=== PATIENT | male | born 1980 | race Caucasian/White ===

== ENCOUNTER 2021-10-16 05:30 | Emergency (ER) | payer MEDICAID, SELFPAY ==
--- NOTE | ~2021-10-16 | CT_ITS ---
EXAMINATION: CT ABDOMEN AND PELVIS WITH CONTRAST CLINICAL INFORMATION: Epigastric pain. History of his be of COMPARISON: CT abdomen pelvis 02/01/2020 TECHNIQUE: Multidetector volumetric images were obtained from the superior aspect of the liver through the pubic symphysis following administration 85 mL of Omnipaque 350 intravenous contrast. Sagittal and coronal reformatted images were obtained on the technologist's workstation. Oral contrast: No This CT examination was performed using dose optimization techniques as appropriate, variously including the following: *Automated exposure control *Adjustment of mA and/or kV according to patient size (this includes techniques or standardized protocols for targeted exams where dose is matched to indication/reason for exam; i.e. extremities or head) *Use of iterative reconstruction technique DLP: 770 mGy-cm FINDINGS: LUNG BASES: The visualized lung bases are unremarkable. LIVER, GALLBLADDER, AND BILIARY TREE: The liver is normal in size, shape, and attenuation. No focal hepatic lesion or biliary ductal dilatation is present. The gallbladder is unremarkable with no evidence of radiopaque gallstones, gallbladder wall thickening, or obvious pericholecystic inflammatory changes. PANCREAS: Unremarkable. SPLEEN: Unremarkable. ADRENAL GLANDS: Unremarkable. KIDNEYS AND URETERS: There is a horseshoe kidney joint and the inferior poles. There is no radiopaque renal calculi seen. There are left renal caliectasis and extrarenal pelvis.. The ureters are normal caliber. BLADDER: Unremarkable. GASTROINTESTINAL TRACT: There is scattered stool and gas seen in colon without distention. The small bowel loops are normal caliber. Appendix is not visualized. There is no free air or fluid levels. ABDOMINAL WALL: No significant hernia is appreciated. LYMPH NODES: Normal. VASCULAR: Unremarkable. PELVIC VISCERA: The prostate gland is normal size. The central gland calcification. No free air. No abnormal pelvic lymph nodes. Prominent inguinal canal containing fat is noted. OSSEOUS STRUCTURES: Unremarkable. CT/CT abdomen pelvis w con IMPRESSION: No acute intra-abdominal process. Mild constipation. 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 Fleischner guidelines were followed.
[2021-10-16 05:47] VITALS: BP 142/90; PULSE 76; RESP 20; TEMP 36.6; O2SAT 100; BMI 34.4
[2021-10-16 06:01] LABS: Basophils Percent Auto 0.2 % (0-2); Eosinophils Absolute Auto 0.1 X10*3/uL (0.0-0.4); Hematocrit 43.3 % (42.0-52.0); Hemoglobin 14.3 g/dl (14.0-18.0); Imm Gran Abs Auto 0.01 X10*3/uL (0.00-0.03); Imm Gran Pct Auto 0.2 % (0.0-0.4); Lymphocytes Absolute Auto 1.7 X10*3/uL (1.2-4.9); Lymphocytes Percent Auto 39.1 % (20-40); MANUAL DIFF FLAG NO; Mean Corpuscular Hemoglobin 30.4 pg (27.0-33.0); Mean Corpuscular Volume 91.9 fL (80.0-98.0); Mean Platelet Volume 8.7 fL (9.4-12.4); Monocytes Absolute Auto 0.5 X10*3/uL (0.1-1.2); Monocytes Percent Auto 10.2 % (2-11); Neutrophils Absolute Auto 2.1 x10*3/uL (2.0-8.3); Neutrophils Percent Auto 48.3 % (45-73); Platelet Count 270 X10*3/uL (160-400); Red Blood Count 4.71 X10*6/uL (4.60-5.80); Red Cell Distribution Width 12.6 % (11.0-16.0); White Blood Count 4.4 X10*3/uL (4.8-10.8)
[2021-10-16 06:14] LABS: COVID-19 Test Negative (Negative)
[2021-10-16 06:15] LABS: Alanine Aminotransferase 66 U/L (0-40); Albumin Level 4.2 g/dL (3.5-5.0); Alkaline Phosphatase 68 U/L (39-117); Anion Gap 12 (12-20); Aspartate Amino Transferase 40 U/L (5-37); Bilirubin Total 0.7 mg/dL (0.0-1.0); Blood Urea Nitrogen 14 mg/dL (9-16); Calcium 9.3 mg/dL (8.4-10.2); Carbon Dioxide 30 mmol/L (22-29); Chloride 103 mmol/L (96-108); Creatinine Clr Calc Pharmacy 108.3; Estimated Glomerular Filt Rate > 60; Glucose Random 106 mg/dL (60-115); Lipase 17 U/L (8-78); Potassium 4.2 mmol/L (3.3-5.1); Sodium 141 mmol/L (135-145); Total Protein 7.4 g/dL (6.5-8.0)
[2021-10-16 06:33] LABS: Appearance Urine CLEAR; Color Urine YELLOW; Glucose Urine UA NEG (NEG); Leukocyte Esterase Urine NEG (NEG); Nitrite Urine NEG (NEG); PH 5.5 (5.0-8.0); Specific Gravity - Urine >= 1.030 (1.005-1.025); Urine Blood NEG (NEG); Urine Ketones NEG (NEG); Urine Protein NEG (NEG-TRACE)
--- NOTE | 2021-10-16 09:39 | ED_ITS ---
HPI - Abdominal Pain General Chief Complaint: Abdominal Pain Stated Complaint: stomach pain, nausea Time Seen by Provider: 10/16/21 09:39 Source: patient Mode of arrival: ambulatory Limitations: no limitations History of Present Illness HPI narrative: 41-year-old male presents for epigastric pain that started at 03:30 this morning. The pain was severe when he woke up, he was nauseous. Patient had a bowel movement, and then had tenesmus with 4 more bowel movements early this morning. No dark tarry or bloody stool. His pain was worsening, he took ibuprofen and Pepto-Bismol at home, and now his pain is better. Pain now is 4/10. States the pain comes in waves. Not nauseous now, no vomiting. No fevers. No radiation of pain. Patient is on Suboxone and has a history of alcoholism. States he recently st arted drinking again, drinks 3-4 nips a day. Patient was offered assistant boys track coach, but refused, will follow up with primary care provider for his drinking. Patient has a history of small-bowel obstructions, states he has had 2 small bowel obstructions. History of abdominal surgery as a child. States his mom is usually drunk, cannot give him information of what abdominal surgeries he has had. States he was hospitalized here a few years ago where he was managed medically for small bowel obstruction. MD elicited complaint: abdominal pain Pertinent past history: other (SBO) Onset (ago): hour(s) Pain Consistency: intermittent Location: epigastric Severity: moderate Pain scale (0-10): 4 Quality: stabbing Radiation: none Migration to: no migration Exacerbating factors: nothing Relieving factors: nothing Context: history of similar episodes Associated symptoms: nausea Treatments prior to arrival: NSAIDs and other (pepto bismol) Related Data Previous Rx's Medication Instructions Recorded polyethylene glycol 3350 17 17 g PO DAILY 3 Days #51 g 10/16/21 gram/dose oral powder (Miralax) Allergies Allergy/AdvReac Type Severity Reaction Status Date / Time No Known Allergies Allergy Verified 10/16/21 05:43 Review of Systems Constitutional: Denies body ache(s), Denies chills, Denies fatigue, Denies fever(s), Denies headache(s), Denies malaise and Denies weakness Eyes: Denies diplopia Denies vertigo, Denies dizziness, Denies otalgia, Denies headache(s), Denies mouth pain, Denies post nasal drip, Denies sinus pain, Denies sinus pressure, Denies sore throat and Denies throat swelling Cardiovascular: Denies chest pain, Denies syncope, Denies leg edema, Denies lightheadedness, Denies Loss of Consciousness, Denies palpitations and Denies dyspnea Respiratory: Denies chest congestion, Denies cough and Denies dyspnea Gastrointestinal: Reports abdominal pain, Denies melena, Denies hematochezia, Reports tenesmus, Denies coffee ground emesis, Denies constipation, Denies diar pepper, Reports nausea, Denies vomiting and Denies hematemesis Musculoskeletal: Reports no additional musculoskeletal complaints Denies confusion, Denies vertigo, Denies dizziness, Denies syncope, Denies headache(s) and Denies weakness Psychiatric: Denies anxiety, Denies confusion and Denies depression Endocrine: Denies fatigue and Denies palpitations Allergic/Immunologic: Denies throat swelling [facility] Past Medical History [facility] Narrative: alcoholism On Suboxone Medical History (Updated 10/16/21 @ 11:52 by MINDY Lipscomb) Small bowel obstruction Social History Social History Advance Directives: No Advance Directives Information Provided: No Physical Exam ED Vital Signs: Vital Signs - 24 hr 10/16/21 05:47 Temperature 97.9 F Pulse Rate 76 Respiratory Rate 20 Blood Pressure 142/90 H Pulse Oximetry 100 BMI result Body Mass Index 34.4 Const General: healthy appearing, no acute distress, well developed, alert and awake; No confusion Nutritional Appearance: well nourished Orientation/consciousness: patient oriented x3 and No confusion Limitations: no limitations [facility] Head: Yes normal to inspection, Yes No palpable skull fracture present, Yes normocephalic and Yes atraumatic Ears: hearing grossly normal bilaterally General nose exam: Normal external nose present Face and sinus: Yes normal facial exam Mouth: Normal oral and palatal mucosa present Throat: Yes posterior oropharynx normal Eyes Sclerae: sclerae normal Pupils: Equal, round and reactive pupils present EOM: EOMs intact bilaterally Neck Neck: Yes normal visual inspection, Yes full ROM, Yes no lymphadenopathy, Yes no meningeal signs and Yes trachea midline Resp Effort & Inspection: normal respiratory effort and able to speak in complete sentences Auscultation: clear to auscultation bilaterally, no crackles, no rales, no rhonchi and no wheezes Cardio Rate: regular rate Rhythm: regular rhythm Heart sounds: S1 normal heart sound present and S2 normal heart sound present GI Inspection: Yes scar Palpation (GI): Soft to palpation, Tenderness to palpation present (GI) in the epigastrum, Guarding due to palpation present (GI) in the RUQ and other (epigastric) and not rigid Percussion: Yes normal to percussion Auscultation: Hypoactive bowel sounds present Rectal Exam - Male: Yes deferred General: Yes no CVA tenderness Back/Spine/Pelvis Back: no CVA tenderness Skin General skin exam: scars (midline scar abd, G tube scar) Neuro General: patient oriented x3, no meningeal signs, no focal motor deficits and No confusion Cranial nerves: Yes Equal, round and reactive pupils present Extrem General: Yes normal to inspection, Yes full ROM and Yes capillary refill normal Psych Appearance: grossly normal Mental Status: mental status grossly normal Speech and movement: Normal speech and movement present Affect: normal affect Attitude: cooperative Course Course Course Narrative: 41-year-old male with a history of small-bowel obstruction presents with severe epigastric pain early this morning. Patient's pain is better now. On exam, patient has no CVA tenderness, is tender and guarding over epigastrium. Diminished bowel sounds Labs are remarkable for elevated LFTs, patient states he has recently started drinking again. Bilirubin is normal. White blood cell count 4.4. Lipase is negative. Discussed patient's drinking, offered assistant boys track coach, patient refused. Will get CT abdomen to evaluate for SBO. Reevaluation(s) Reevaluation #1: CT/CT abdomen pelvis w con IMPRESSION: No acute intra-abdominal process. Mild constipation. 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 CT shows no small bowel obstruction, Will treat for constipation, counseled patient to increase water and fiber intake, prescribed MiraLax for 2 days, follow-up with primary care provider. MDM - Abdominal Pain Lab Data Result diagrams: 10/16/21 05:51 10/16/21 05:51 Labs: Lab Results 10/16/21 10/16/21 10/16/21 Range/Units 05:51 05:51 05:55 WBC 4.4 L (4.8-10.8) X10*3/uL RBC 4.71 (4.60-5.80) X10*6/uL Hgb 14.3 (14.0-18.0) g/dl Hct 43.3 (42.0-52.0) % MCV 91.9 (80.0-98.0) fL MCH 30.4 (27.0-33.0) pg MCHC 33.0 (31.0-36.0) g/dl RDW 12.6 (11.0-16.0) % Plt Count 270 (160-400) X10*3/uL MPV 8.7 L (9.4-12.4) fL Immature Gran % (Auto) 0.2 (0.0-0.4) % Neut % (Auto) 48.3 (45-73) % Lymph % (Auto) 39.1 (20-40) % [place] % (Auto) 10.2 (2-11) % Eos % (Auto) 2.0 (0-4) % Baso % (Auto) 0.2 (0-2) % Lymph # (Auto) 1.7 (1.2-4.9) X10*3/uL [place] # (Auto) 0.5 (0.1-1.2) X10*3/uL Eos # (Auto) 0.1 (0.0-0.4) X10*3/uL Baso # (Auto) 0.0 (0.0-0.2) X10*3/uL Abs Immat Gran (auto) 0.01 (0.00-0.03) X10*3/uL Absolute Neuts (auto) 2.1 (2.0-8.3) x10*3/uL Absolute Nucleated RBC 0.000 (0.0-0.012) X10*3/uL Nucleated RBC % (auto) 0.0 (0.0-0.2) /100WBC Sodium 141 (135-145) mmol/L Potassium 4.2 (3.3-5.1) mmol/L Chloride 103 (96-108) mmol/L Carbon Dioxide 30 H (22-29) mmol/L Anion Gap 12 (12-20) BUN 14 (9-16) mg/dL Creatinine 1.01 (0.5-1.4) mg/dL Estim Creat Clear Calc 108.3 Estimated GFR > 60 Random Glucose 106 (60-115) mg/dL Calcium 9.3 (8.4-10.2) mg/dL Total Bilirubin 0.7 (0.0-1.0) mg/dL AST 40 H (5-37) U/L ALT 66 H (0-40) U/L Alkaline Phosphatase 68 (39-117) U/L Total Protein 7.4 (6.5-8.0) g/dL Albumin 4.2 (3.5-5.0) g/dL Lipase 17 (8-78) U/L Urine Color Urine Appearance Urine pH (5.0-8.0) Ur Specific [place] (1.005-1.025) Urine Protein (NEG-TRACE) MG/DL Urine Glucose (UA) (NEG) MG/DL Urine Ketones (NEG) MG/DL Urine Blood (NEG) Urine Nitrite (NEG) Ur Leukocyte Esterase (NEG) COVID-19 (FIDEL) Negative (Negative) COVID-19 Clin Com See Note 10/16/21 Range/Units 06:23 WBC (4.8-10.8) X10*3/uL RBC (4.60-5.80) X10*6/uL Hgb (14.0-18.0) g/dl Hct (42.0-52.0) % MCV (80.0-98.0) fL MCH (27.0-33.0) pg MCHC (31.0-36.0) g/dl RDW (11.0-16.0) % Plt Count (160-400) X10*3/uL MPV (9.4-12.4) fL Immature Gran % (Auto) (0.0-0.4) % Neut % (Auto) (45-73) % Lymph % (Auto) (20-40) % [place] % (Auto) (2-11) % Eos % (Auto) (0-4) % Baso % (Auto) (0-2) % Lymph # (Auto) (1.2-4.9) X10*3/uL [place] # (Auto) (0.1-1.2) X10*3/uL Eos # (Auto) (0.0-0.4) X10*3/uL Baso # (Auto) (0.0-0.2) X10*3/uL Abs Immat Gran (auto) (0.00-0.03) X10*3/uL Absolute Neuts (auto) (2.0-8.3) x10*3/uL Absolute Nucleated RBC (0.0-0.012) X10*3/uL Nucleated RBC % (auto) (0.0-0.2) /100WBC Sodium (135-145) mmol/L Potassium (3.3-5.1) mmol/L Chloride (96-108) mmol/L Carbon Dioxide (22-29) mmol/L Anion Gap (12-20) BUN (9-16) mg/dL Creatinine (0.5-1.4) mg/dL Estim Creat Clear Calc Estimated GFR Random Glucose (60-115) mg/dL Calcium (8.4-10.2) mg/dL Total Bilirubin (0.0-1.0) mg/dL AST (5-37) U/L ALT (0-40) U/L Alkaline Phosphatase (39-117) U/L Total Protein (6.5-8.0) g/dL Albumin (3.5-5.0) g/dL Lipase (8-78) U/L Urine Color YELLOW Urine Appearance CLEAR Urine pH 5.5 (5.0-8.0) Ur Specific [place] >= 1.030 H (1.005-1.025) Urine Protein NEG (NEG-TRACE) MG/DL Urine Glucose (UA) NEG (NEG) MG/DL Urine Ketones NEG (NEG) MG/DL Urine Blood NEG (NEG) Urine Nitrite NEG (NEG) Ur Leukocyte Esterase NEG (NEG) COVID-19 (FIDEL) (Negative) COVID-19 Clin Com Discharge Plan Discharge Clinical Impression: Constipation Patient Disposition: Home, Self-Care Instructions: Constipation (ED), High Fiber Diet (ED) Additional Instructions: You have no bowel obstruction today Take MiraLax once a day for 3 days. Drink 2-3 L of water a day, reduce your coffee intake. Eat plenty of fruits and vegetables as these help reduce constipation. Please call your primary care provider for follow-up appointment. We discussed that your liver enzymes are mildly elevated. Please discuss this as well as your wish to stop drinking alcohol with your primary care provider. Please return to the emergency room if you have worsening severe abdominal pain, fever, nausea vomiting, or any other new or concerning symptoms. We want to make sure you do not have a bowel obstruction in the future as well. Prescriptions: New polyethylene glycol 3350 [Miralax] 17 gram/dose powder 17 g PO DAILY 3 Days Qty: 51 0RF Stand Alone Forms: Work/School Release
[2021-10-16] MEDS: 0.9 % Sodium Chloride 1,000 ML 999 ML IV (10:09)
[2021-10-16] MEDS: iohexoL 350 MG/ML 100 ML INFUS..BTL 85 ML IV (10:23)
[2021-10-16 12:00] VITALS: BP 133/90; PULSE 61; RESP 18; TEMP 36.9; O2SAT 100
== END 2021-10-16 12:05 | disposition home or self-care (01) ==
PROVIDERS: Emergency Provider Emergency Medicine Emergency Medical Services; PCP Internal Medicine
DX: K59.00 Constipation, unspecified (principal); Z20.822 Contact with and (suspected) exposure to COVID-19; R10.13 Epigastric pain
CPT/HCPCS: 36415; 74177; 80053; 81003; 83690; 85025; 87635; 96360; 99284; Q9967

== ENCOUNTER 2021-11-16 17:24 | Emergency (ER) | payer MEDICAID, SELFPAY ==
--- NOTE | ~2021-11-16 | XR_ITS ---
EXAMINATION: XR CHEST CLINICAL INFORMATION: Chest pain COMPARISON: None TECHNIQUE: Frontal view of the chest was obtained. 5:36 PM FINDINGS: No significant abnormality is noted involving the heart, lungs, mediastinum, bony thorax or soft tissues. XR/XR chest 1V IMPRESSION: Unremarkable examination.
--- NOTE | 2021-11-16 17:30 | ECG_ITS ---
Test Reason : DIZZINESS Blood Pressure : / mmHG Vent. Rate : 084 BPM Atrial Rate : 084 BPM P-R Int : 156 ms QRS Dur : 078 ms QT Int : 348 ms P-R-T Axes : 059 031 045 degrees QTc Int : 411 ms Normal sinus rhythm Normal ECG No previous ECGs available Referred By: Generic ED Physician Electronically Signed By:CARLOS HENDRICKS MD
[2021-11-16 17:35] VITALS: BP 148/87; PULSE 94; RESP 17; TEMP 36.6; O2SAT 98; BMI 36.3
[2021-11-16 17:58] LABS: MANUAL DIFF FLAG NO
[2021-11-16 18:16] LABS: Anion Gap 11 (12-20); Basophils Percent Auto 0.3 % (0-2); Blood Urea Nitrogen 18 mg/dL (9-16); Calcium 9.3 mg/dL (8.4-10.2); Carbon Dioxide 29 mmol/L (22-29); Chloride 105 mmol/L (96-108); Creatinine Clr Calc Pharmacy 106.9; Eosinophils Absolute Auto 0.1 X10*3/uL (0.0-0.4); Eosinophils Percent Auto 1.6 % (0-4); Estimated Glomerular Filt Rate > 60; Glucose Random 84 mg/dL (60-115); Hematocrit 41.5 % (42.0-52.0); Imm Gran Abs Auto 0.04 X10*3/uL (0.00-0.03); Imm Gran Pct Auto 0.6 % (0.0-0.4); Lymphocytes Absolute Auto 1.9 X10*3/uL (1.2-4.9); Lymphocytes Percent Auto 29.8 % (20-40); Mean Corpuscular HGB Conc 33.7 g/dl (31.0-36.0); Mean Corpuscular Hemoglobin 30.5 pg (27.0-33.0); Mean Corpuscular Volume 90.4 fL (80.0-98.0); Mean Platelet Volume 8.9 fL (9.4-12.4); Monocytes Absolute Auto 0.5 X10*3/uL (0.1-1.2); Monocytes Percent Auto 7.4 % (2-11); Neutrophils Absolute Auto 3.8 x10*3/uL (2.0-8.3); Neutrophils Percent Auto 60.3 % (45-73); Platelet Count 304 X10*3/uL (160-400); Potassium 4.5 mmol/L (3.3-5.1); Red Blood Count 4.59 X10*6/uL (4.60-5.80); Red Cell Distribution Width 12.4 % (11.0-16.0); Sodium 140 mmol/L (135-145); White Blood Count 6.3 X10*3/uL (4.8-10.8)
[2021-11-16 18:20] LABS: Troponin-I High Sensitivity < 3.5 ng/L (<3.5-35.0)
--- NOTE | 2021-11-16 18:40 | ED.GENADULT ---
HPI - General Adult General Chief complaint: Dizziness Stated complaint: HBP/Dizzy Time Seen by Provider: 11/16/21 18:40 Source: patient Mode of arrival: ambulatory Limitations: no limitations History of Present Illness HPI narrative: Patient with history of borderline hypertension today while in the bathroom felt little funny fell face is swollen got scared checked blood pressure was 200/90 so came to the ER for further management patient not taking any medication for blood pressure at this time does have a family history of hypertension no chest pain no headache no passing out no palpitation Related Data Previous Rx's Medication Instructions Recorded polyethylene glycol 3350 17 17 g PO DAILY 3 Days #51 g 10/16/21 gram/dose oral powder (Miralax) Allergies Allergy/AdvReac Type Severity Reaction Status Date / Time No Known Allergies Allergy Verified 10/16/21 05:43 Review of Systems Review of Systems: Yes all other systems are reviewed and are negative [facility] Past Medical History Medical History Small bowel obstruction Social History Social History Advance Directives: No Advance Directives Information Provided: No Physical Exam ED Vital Signs: Vital Signs - 24 hr 11/16/21 17:35 11/16/21 18:54 11/16/21 18:56 Temperature 98 F 98 F Pulse Rate 94 98 Respiratory Rate 17 16 Blood Pressure 148/87 H 128/94 H 124/96 H Pulse Oximetry 98 97 BMI result Body Mass Index 36.3 Appearance: Alert. Oriented X3. No acute distress. Eyes: PERRLA, No Nystagmus ENT: Pharynx normal. Oral Mucosa moist Neck: Normal inspection. Neck supple. CVS: Normal heart rate and rhythm. Pulses normal. Respiratory: No respiratory distress. Equal air entry bilateral, no wheezing/rales/rhonchi Abdomen: Soft and nontender. Bowel sounds are present, no mass palpable, no CVA tenderness Skin: Skin warm and dry. Normal skin color. Normal skin turgor. Extremities: No lower extremity edema. No calf tenderness Neuro: Oriented X 3. No motor deficit. No sensory deficit.No cerebellar signs , cranial nerves II-XII intact Medical Decision Making MDM Narrative Medical decision making narrative: Patient has stable labs repeat blood pressure was within normal dropped to 126/85. Patient advised to follow-up with PCP for further management patient advised to decrease weight salt restrictions and follow with PCP Lab Data Lab results reviewed: Yes I reviewed the patient's lab results. Result diagrams: 11/16/21 17:50 11/16/21 17:50 Labs: Lab Results 11/16/21 11/16/21 11/16/21 Range/Units 17:50 17:50 17:50 WBC 6.3 (4.8-10.8) X10*3/uL RBC 4.59 L (4.60-5.80) X10*6/uL Hgb 14.0 (14.0-18.0) g/dl Hct 41.5 L (42.0-52.0) % MCV 90.4 (80.0-98.0) fL MCH 30.5 (27.0-33.0) pg MCHC 33.7 (31.0-36.0) g/dl RDW 12.4 (11.0-16.0) % Plt Count 304 (160-400) X10*3/uL MPV 8.9 L (9.4-12.4) fL Immature Gran % (Auto) 0.6 H (0.0-0.4) % Neut % (Auto) 60.3 (45-73) % Lymph % (Auto) 29.8 (20-40) % [place] % (Auto) 7.4 (2-11) % Eos % (Auto) 1.6 (0-4) % Baso % (Auto) 0.3 (0-2) % Lymph # (Auto) 1.9 (1.2-4.9) X10*3/uL [place] # (Auto) 0.5 (0.1-1.2) X10*3/uL Eos # (Auto) 0.1 (0.0-0.4) X10*3/uL Baso # (Auto) 0.0 (0.0-0.2) X10*3/uL Abs Immat Gran (auto) 0.04 H (0.00-0.03) X10*3/uL Absolute Neuts (auto) 3.8 (2.0-8.3) x10*3/uL Absolute Nucleated RBC 0.000 (0.0-0.012) X10*3/uL Nucleated RBC % (auto) 0.0 (0.0-0.2) /100WBC Sodium 140 (135-145) mmol/L Potassium 4.5 (3.3-5.1) mmol/L Chloride 105 (96-108) mmol/L Carbon Dioxide 29 (22-29) mmol/L Anion Gap 11 L (12-20) BUN 18 H (9-16) mg/dL Creatinine 1.05 (0.5-1.4) mg/dL Estim Creat Clear Calc 106.9 Estimated GFR > 60 Random Glucose 84 (60-115) mg/dL Calcium 9.3 (8.4-10.2) mg/dL Troponin I High Sens < 3.5 (<3.5-35.0) ng/L Discharge Plan Discharge Clinical Impression: Hypertension Patient Disposition: Home, Self-Care Instructions: Heart Healthy Diet (ED), Hypertension (ED) Additional Instructions: You have borderline hypertension Try to work on reducing weight Decrease salt intake exercise follow with PCP Check blood pressure twice daily it should be less than 130/80 Prescriptions: No Action polyethylene glycol 3350 [Miralax] 17 gram/dose powder 17 g PO DAILY 3 Days Qty: 51 0RF Interventions: ED Discharge Assessment Last Done: 11/16/21 19:04 Discharge Date/Time: 11/16/21 19:04
[2021-11-16 18:54] VITALS: BP 128/94; PULSE 98; RESP 16; TEMP 36.6; O2SAT 97
[2021-11-16 18:56] VITALS: BP 124/96
== END 2021-11-16 19:04 | disposition home or self-care (01) ==
PROVIDERS: Emergency Provider Internal Medicine; PCP Internal Medicine
DX: R07.89 Other chest pain (principal); R42 Dizziness and giddiness; I10 Essential (primary) hypertension; Z79.899 Other long term (current) drug therapy
CPT/HCPCS: 36415; 71045; 80048; 84484; 85025; 93005; 99283

== ENCOUNTER 2021-12-03 04:53 | Emergency (ER) | payer MEDICAID, SELFPAY ==
--- NOTE | ~2021-12-03 | CT_ITS ---
EXAMINATION: CT ABDOMEN AND PELVIS WITHOUT CONTRAST CLINICAL INFORMATION: Diffuse abdominal pain COMPARISON: 10/16/2021 TECHNIQUE: Multidetector volumetric imaging was performed from the superior aspect of the liver through the pubic symphysis. Sagittal and coronal reformatted images were obtained on the technologist's workstation. This CT examination was performed using dose optimization techniques as appropriate, variously including the following: *Automated exposure control *Adjustment of mA and/or kV according to patient size (this includes techniques or standardized protocols for targeted exams where dose is matched to indication/reason for exam; i.e. extremities or head) *Use of iterative reconstruction technique DLP: 794 mGy-cm FINDINGS: LUNG BASES: The visualized lung bases are unremarkable. LIVER, GALLBLADDER, AND BILIARY TREE: The liver is normal in size, shape, and attenuation. No focal hepatic lesion or biliary ductal dilatation is present. Gallbladder unremarkable. PANCREAS: Unremarkable. SPLEEN: Unremarkable. ADRENAL GLANDS: Unremarkable. KIDNEYS AND URETERS: Horseshoe kidney. Stable chronic fullness/hydronephrosis of the left moiety. The ureters are normal in course and caliber. Multiple nonobstructive intrarenal calculi present within the left moiety, with tiny stones versus milk of calcium within dependent interpolar calyces, similar to prior. The largest grouping of tiny stones measures 10 x 3 mm in total. No urinary calculi within the right moiety. BLADDER: Unremarkable. GASTROINTESTINAL TRACT: The small and large bowel are unremarkable. The appendix is unremarkable. ABDOMINAL WALL: No significant hernia is appreciated. LYMPH NODES: Normal. VASCULAR: Unremarkable. PELVIC VISCERA: Normal sized prostate. Dystrophic calcifications present within the central gland. Seminal vesicles unremarkable. OSSEOUS STRUCTURES: Unremarkable. CT/CT abdomen pelvis wo con IMPRESSION: * No acute findings within the abdomen or pelvis. 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 * Multiple nonobstructive calculi within the left moiety appearing similar to prior. The fact that the left moiety is involved while the right is not suggests urinary stasis as a contributing factor
[2021-12-03 04:59] VITALS: BP 132/77; PULSE 76; RESP 16; O2SAT 99; BMI 35.6
[2021-12-03 05:03] VITALS: TEMP 36.8
[2021-12-03 05:15] VITALS: BP 128/72; PULSE 73; RESP 18; O2SAT 98
[2021-12-03 05:17] LABS: Basophils Percent Auto 0.2 % (0-2); Eosinophils Absolute Auto 0.1 X10*3/uL (0.0-0.4); Eosinophils Percent Auto 3.2 % (0-4); Hematocrit 42.8 % (42.0-52.0); Hemoglobin 14.4 g/dl (14.0-18.0); Imm Gran Abs Auto 0.01 X10*3/uL (0.00-0.03); Imm Gran Pct Auto 0.2 % (0.0-0.4); Lymphocytes Absolute Auto 1.9 X10*3/uL (1.2-4.9); Lymphocytes Percent Auto 41.9 % (20-40); MANUAL DIFF FLAG NO; Mean Corpuscular HGB Conc 33.6 g/dl (31.0-36.0); Mean Corpuscular Hemoglobin 30.1 pg (27.0-33.0); Mean Corpuscular Volume 89.5 fL (80.0-98.0); Mean Platelet Volume 8.7 fL (9.4-12.4); Monocytes Absolute Auto 0.4 X10*3/uL (0.1-1.2); Monocytes Percent Auto 9.5 % (2-11); Platelet Count 258 X10*3/uL (160-400); Red Blood Count 4.78 X10*6/uL (4.60-5.80); Red Cell Distribution Width 12.4 % (11.0-16.0); White Blood Count 4.4 X10*3/uL (4.8-10.8)
[2021-12-03 05:34] LABS: Alanine Aminotransferase 44 U/L (0-40); Albumin Level 4.1 g/dL (3.5-5.0); Alkaline Phosphatase 65 U/L (39-117); Anion Gap 12 (12-20); Aspartate Amino Transferase 28 U/L (5-37); Bilirubin Total 0.4 mg/dL (0.0-1.0); Blood Urea Nitrogen 10 mg/dL (9-16); Calcium 9.2 mg/dL (8.4-10.2); Carbon Dioxide 28 mmol/L (22-29); Chloride 103 mmol/L (96-108); Creatinine Clr Calc Pharmacy 109.2; Estimated Glomerular Filt Rate > 60; Glucose Random 101 mg/dL (60-115); Lipase 17 U/L (8-78); Potassium 4.1 mmol/L (3.3-5.1); Sodium 139 mmol/L (135-145); Total Protein 7.2 g/dL (6.5-8.0)
[2021-12-03 06:00] VITALS: BP 118/75; PULSE 69; RESP 16; TEMP 36.9; O2SAT 98
--- NOTE | 2021-12-03 06:54 | ED_ITS ---
HPI - Abdominal Pain General Chief Complaint: Abdominal Pain Stated Complaint: stomach pain Time Seen by Provider: 12/03/21 06:48 Source: patient Mode of arrival: ambulatory Limitations: no limitations History of Present Illness HPI narrative: 41-year-old male came in for evaluation of abdominal pain. Patient woke up from sleep with severe mid abdominal pain, describes the pain as cramps, had 3 bowel movements the 1st bowel movement with constipation then was followed by soft bowel movement, pain was associated with nausea but no vomiting, no fever, no chills, patient had recent ED visit for evaluation of abdominal pain and was diagnosed with constipation, history of abdominal surgery when he was child (patient do not know what kind of surgery). Patient had a history of small-bowel obstruction. Patient has been passing flatus, pain has improved now is about 5/10 but constant dull aching mostly in the mid abdomen. Related Data Home Medications Medication Instructions Recorded Confirmed buprenorphine 8 mg-naloxone 2 mg 2 strip SUBLINGUAL DAILY 12/03/21 12/03/21 sublingual film (Suboxone) Previous Rx's Medication Instructions Recorded polyethylene glycol 3350 17 17 g PO DAILY 3 Days #51 g 10/16/21 gram/dose oral powder (Miralax) Allergies Allergy/AdvReac Type Severity Reaction Status Date / Time No Known Allergies Allergy Verified 12/03/21 05:20 Review of Systems Review of Systems All other systems are reviewed and are negative Constitutional: Reports as per HPI and Reports no additional constitutional complaints Eyes: Reports as per HPI and Reports no additional eye complaints Reports system reviewed and no additional complaints, except as documented Cardiovascular: Reports as per HPI and Reports no additional cardiovascular complaints Respiratory: Reports as per HPI and Reports no additional respiratory complaints Gastrointestinal: Reports as per HPI and Reports no additional gastrointestinal complaints Genitourinary: Reports no additional female genitourinary complaints Musculoskeletal: Reports no additional musculoskeletal complaints Skin/Breast: Reports system reviewed and no additional complaints, except as docu Psychiatric: Reports no additional psychiatric complaints Endocrine: Reports no additional endocrine complaints Hematologic/Lymphatic: Reports no additional hematologic/lymphatic complaints Allergic/Immunologic: Reports no additional allergic/immunologic complaints Reports system reviewed and no additional complaints, except as documented and Reports Abnormal speech present PMFSH Past Medical History Medical History Small bowel obstruction Social History Social History Alcohol intake: current Alcohol intake frequency: a few times a month Patient Tobacco Use Status: Never used Tobacco Use of substances other than those prescribed or required for medical reasons: No Advance Directives: No Advance Directives Information Provided: No Physical Exam ED Vital Signs: Vital Signs - 24 hr 12/03/21 04:59 12/03/21 05:03 12/03/21 05:15 Temperature 98.3 F Pulse Rate 76 73 Respiratory Rate 16 18 Blood Pressure 132/77 128/72 Pulse Oximetry 99 98 12/03/21 06:00 12/03/21 11:25 Temperature 98.5 F Pulse Rate 69 59 Respiratory Rate 16 18 Blood Pressure 118/75 138/91 H Pulse Oximetry 98 99 BMI result Body Mass Index 35.6 Vital signs have been reviewed as appeared to be correct. Blood pressure normal. Heart rate normal. Respiration rate normal. Temperature normal. Oxygen saturation normal. Appearance: Alert. Oriented X3. No acute distress. Head: Normal external exam. Normocephalic. Atraumatic. No Melendez signs noted. No raccoon eyes noted Eyes: PERRLA. EOMI. Conjunctiva and sclera normal. Eyelids normal. ENT: TM's Normal. Pharynx normal. Uvula midline. Moist mucous membranes. No trismus noted. No drooling noted. No muffled voice noted. Neck: Normal inspection. Neck supple. FROM. No adenopathy. Thyroid Normal. No meningeal signs. No neck mass noted. CVS: Normal heart rate and rhythm. Heart sound normal. No murmurs noted. Pulses normal throughout. Respiratory: No respiratory distress. Painless inspiration. Breath sounds normal. No wheezes/rales/rhonchi noted. Chest nontender. No accessory muscle usage noted or decreased air movement noted. Abdomen: Soft, mild epigastric tenderness, no guarding, no rebound tenderness. Bowel sounds normal in all 4 quadrants. No distention noted. No organomegaly noted. No visible injury noted. Back: No CVA tenderness. Full range of motion noted. Skin: Skin warm and dry. Normal skin color. Normal skin turgor. No rashes/l esions/lacerations noted. Extremities: No lower extremity edema. Extremities exhibit normal range of motion. Extremities nontender. Neuro: Oriented X 3. Cranial nerve exam: II-XII are grossly intact No motor deficit. No sensory deficit. Reflexes normal. Course Course Course Narrative: Assessment and plan. 41-year-old male came in for evaluation of abdominal pain, while patient emergency department had a serial abdominal exam which showed improvement of the abdominal exam, patient had a negative CT of the abdomen and pelvis and unremarkable labs. Patient is able to tolerate p.o. intake. MDM - Abdominal Pain Medical Records Attestation: I reviewed the patient's medical records. Lab Data Attestation: I reviewed the patient's lab results. Result diagrams: 12/03/21 05:13 12/03/21 05:13 Labs: Lab Results 12/03/21 12/03/21 12/03/21 Range/Units 05:13 05:13 07:19 WBC 4.4 L (4.8-10.8) X10*3/uL RBC 4.78 (4.60-5.80) X10*6/uL Hgb 14.4 (14.0-18.0) g/dl Hct 42.8 (42.0-52.0) % MCV 89.5 (80.0-98.0) fL MCH 30.1 (27.0-33.0) pg MCHC 33.6 (31.0-36.0) g/dl RDW 12.4 (11.0-16.0) % Plt Count 258 (160-400) X10*3/uL MPV 8.7 L (9.4-12.4) fL Immature Gran % (Auto) 0.2 (0.0-0.4) % Neut % (Auto) 45.0 (45-73) % Lymph % (Auto) 41.9 H (20-40) % [place] % (Auto) 9.5 (2-11) % Eos % (Auto) 3.2 (0-4) % Baso % (Auto) 0.2 (0-2) % Lymph # (Auto) 1.9 (1.2-4.9) X10*3/uL [place] # (Auto) 0.4 (0.1-1.2) X10*3/uL Eos # (Auto) 0.1 (0.0-0.4) X10*3/uL Baso # (Auto) 0.0 (0.0-0.2) X10*3/uL Abs Immat Gran (auto) 0.01 (0.00-0.03) X10*3/uL Absolute Neuts (auto) 2.0 (2.0-8.3) x10*3/uL Absolute Nucleated RBC 0.000 (0.0-0.012) X10*3/uL Nucleated RBC % (auto) 0.0 (0.0-0.2) /100WBC Sodium 139 (135-145) mmol/L Potassium 4.1 (3.3-5.1) mmol/L Chloride 103 (96-108) mmol/L Carbon Dioxide 28 (22-29) mmol/L Anion Gap 12 (12-20) BUN 10 (9-16) mg/dL Creatinine 1.02 (0.5-1.4) mg/dL Estim Creat Clear Calc 109.2 Estimated GFR > 60 Random Glucose 101 (60-115) mg/dL Calcium 9.2 (8.4-10.2) mg/dL Total Bilirubin 0.4 (0.0-1.0) mg/dL AST 28 (5-37) U/L ALT 44 H (0-40) U/L Alkaline Phosphatase 65 (39-117) U/L Total Protein 7.2 (6.5-8.0) g/dL Albumin 4.1 (3.5-5.0) g/dL Lipase 17 (8-78) U/L Urine Color YELLOW Urine Appearance CLEAR Urine pH 5.5 (5.0-8.0) Ur Specific [place] 1.010 (1.005-1.025) Urine Protein NEG (NEG-TRACE) MG/DL Urine Glucose (UA) NEG (NEG) MG/DL Urine Ketones NEG (NEG) MG/DL Urine Blood NEG (NEG) Urine Nitrite NEG (NEG) Ur Leukocyte Esterase NEG (NEG) Imaging Data CT scan - abdomen: Attestation: I personally reviewed and interpreted this imaging study as follows: Radiologist's impression: *? No acute findings within the abdomen or pelvis. *? 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 *? Multiple nonobstructive calculi within the left moiety appearing similar to prior. The fact that the left moiety is involved while the right is not suggests urinary stasis as a contributing factor ? Discharge Plan Discharge Clinical Impression: Abdominal pain Patient Disposition: Home, Self-Care Instructions: Abdominal Pain (ED) Prescriptions: No Action polyethylene glycol 3350 [Miralax] 17 gram/dose powder 17 g PO DAILY 3 Days Qty: 51 0RF buprenorphine-naloxone [Suboxone] 8-2 mg film 2 strip sublingual DAILY 0RF Referrals: Physician,Unknown J [Primary Care Provider] - Stand Alone Forms: Work/School Release
[2021-12-03 07:27] LABS: Appearance Urine CLEAR; Color Urine YELLOW; Glucose Urine UA NEG (NEG); Leukocyte Esterase Urine NEG (NEG); Nitrite Urine NEG (NEG); PH 5.5 (5.0-8.0); Urine Blood NEG (NEG); Urine Ketones NEG (NEG); Urine Protein NEG (NEG-TRACE)
[2021-12-03] MEDS: 0.9 % Sodium Chloride 1,000 ML 999 ML IV (08:10)
[2021-12-03 11:25] VITALS: BP 138/91; PULSE 59; RESP 18; O2SAT 99
[2021-12-03 13:38] VITALS: BP 128/79; PULSE 65; RESP 18; O2SAT 100
== END 2021-12-03 13:53 | disposition home or self-care (01) ==
PROVIDERS: Emergency Provider Emergency Medicine
DX: R10.9 Unspecified abdominal pain (principal)
CPT/HCPCS: 36415; 74176; 80053; 81003; 83690; 85025; 96360; 99284; 99285

== ENCOUNTER 2021-12-09 06:08 | Emergency (ER) | payer MEDICAID, SELFPAY ==
[2021-12-09 06:42] VITALS: BP 151/102; PULSE 76; RESP 16; TEMP 36.9; O2SAT 97; BMI 34.4
--- NOTE | 2021-12-09 10:16 | ED_ITS ---
HPI - Abdominal Pain General Chief Complaint: Abdominal Pain Stated Complaint: abdominal pain Time Seen by Provider: 12/09/21 06:21 Source: patient Mode of arrival: ambulatory Limitations: no limitations History of Present Illness HPI narrative: 41-year-old male came in for evaluation of abdominal pain. Abdominal pain started earlier this morning patient ate last night salad and fish with fruits, pain described as cramps, had a normal bowel movement before coming to the emergency department, patient waited in the emergency department for 3 hours pain improved, pain is localized to abdomen, no nausea, no vomiting, no fever, no chills patient had 2 recent ED visit for same pain with negative workup, patient had abdominal surgery in his childhood related to horseshoe kidney, patient reported passing flatus and had bowel movement this morning. Has no abdominal pain at the moment and feels hungry. Related Data Home Medications Medication Instructions Recorded Confirmed buprenorphine 8 mg-naloxone 2 mg 2 strip SUBLINGUAL DAILY 12/03/21 12/03/21 sublingual film (Suboxone) polyethylene glycol 3350 17 17 g PO DAILY PRN 12/09/21 gram/dose oral powder (Miralax) Allergies Allergy/AdvReac Type Severity Reaction Status Date / Time No Known Allergies Allergy Verified 12/03/21 05:20 Review of Systems Review of Systems All other systems are reviewed and are negative Constitutional: Reports as per HPI and Reports no additional constitutional complaints Eyes: Reports as per HPI and Reports no additional eye complaints Reports system reviewed and no additional complaints, except as documented Cardiovascular: Reports as per HPI and Reports no additional cardiovascular complaints Respiratory: Reports as per HPI and Reports no additional respiratory complaints Gastrointestinal: Reports as per HPI and Reports no additional gastrointestinal complaints Genitourinary: Reports no additional female genitourinary complaints Musculoskeletal: Reports no additional musculoskeletal complaints Skin/Breast: Reports system reviewed and no additional complaints, except as docu Psychiatric: Reports no additional psychiatric complaints Endocrine: Reports no additional endocrine complaints Hematologic/Lymphatic: Reports no additional hematologic/lymphatic complaints Allergic/Immunologic: Reports no additional allergic/immunologic complaints Reports system reviewed and no additional complaints, except as documented and Reports Abnormal speech present [facility] Past Medical History Medical History Small bowel obstruction Social History Social History Alcohol intake: current Alcohol intake frequency: a few times a month Patient Tobacco Use Status: Never used Tobacco Advance Directives: Yes Advance Directives Information Provided: Yes Advance Directives on File: No Physical Exam ED Vital Signs: Vital Signs - 24 hr 12/09/21 06:42 Temperature 98.5 F Pulse Rate 76 Respiratory Rate 16 Blood Pressure 151/102 H Pulse Oximetry 97 BMI result Body Mass Index 34.4 Vital signs have been reviewed as appeared to be correct. Blood pressure elevated. Heart rate normal. Respiration rate normal. Temperature normal. Oxygen saturation normal. Appearance: Alert. Oriented X3. No acute distress. Head: Normal external exam. Normocephalic. Atraumatic. No Melendez signs noted. No raccoon eyes noted Eyes: PERRLA. EOMI. Conjunctiva and sclera normal. Eyelids normal. ENT: TM's Normal. Pharynx normal. Uvula midline. Moist mucous membranes. No trismus noted. No drooling noted. No muffled voice noted. Neck: Normal inspection. Neck supple. FROM. No adenopathy. Thyroid Normal. No meningeal signs. No neck mass noted. CVS: Normal heart rate and rhythm. Heart sound normal. No murmurs noted. Pulses normal throughout. Respiratory: No respiratory distress. Painless inspiration. Breath sounds normal. No wheezes/rales/rhonchi noted. Chest nontender. No accessory muscle usage noted or decreased air movement noted. Abdomen: Soft and nontender. Bowel sounds normal in all 4 quadrants. No distention noted. No organomegaly noted. No visible injury noted. Back: No CVA tenderness. Full range of motion noted. Skin: Skin warm and dry. Normal skin color. Normal skin turgor. No rashes/lesions/lacerations noted. Extremities: No lower extremity edema. Extremities exhibit normal range of motion. Extremities nontender. Neuro: Oriented X 3. Cranial nerve exam: II-XII are grossly intact No motor deficit. No sensory deficit. Reflexes normal. Course Course Course Narrative: Assessment and plan. 41-year-old male came in for evaluation of abdominal pain, patient had a serial abdominal exam which showed improvement of the abdominal exam, had no abdominal pain now, patient had recent blood workup and CT of the abdomen and pelvis which showed no acute finding and patient confirmed today's presentation is similar to the previous visits to the ED. As recommended to the patient to follow up with mosaic technician as an outpatient, and eat high fiber diet. Discharge Plan Discharge Clinical Impression: Abdominal pain Patient Disposition: Home, Self-Care Instructions: Abdominal Pain (ED) Prescriptions: No Action buprenorphine-naloxone [Suboxone] 8-2 mg film 2 strip sublingual DAILY 0RF polyethylene glycol 3350 [Miralax] 17 gram/dose powder 17 g PO DAILY PRN (Reason: Constipation) 0RF Referrals: Darius Celis MD [Primary Care Provider] - Mayur Vizcarra MD [Physician] - Stand Alone Forms: Work/School Release
[2021-12-09 10:23] VITALS: BP 133/80; PULSE 59; RESP 15; TEMP 36.8; O2SAT 98
[2021-12-09 10:31] LABS: Appearance Urine CLEAR; Color Urine YELLOW; Glucose Urine UA NEG (NEG); Leukocyte Esterase Urine NEG (NEG); Nitrite Urine NEG (NEG); Specific Gravity - Urine >= 1.030 (1.005-1.025); Urine Blood NEG (NEG); Urine Ketones NEG (NEG); Urine Protein NEG (NEG-TRACE)
== END 2021-12-09 10:34 | disposition home or self-care (01) ==
PROVIDERS: Student in an Organized Health Care Education/Training Program; Emergency Provider Emergency Medicine; PCP Internal Medicine
DX: R10.9 Unspecified abdominal pain (principal)
CPT/HCPCS: 81003; 99282; 99283

== ENCOUNTER → 2021-12-17 12:04 | Outpatient (BNVA) | payer MEDICAID, SELFPAY | PROVIDERS: PCP Internal Medicine; Referring Provider Internal Medicine; Visit Provider Physician Assistant | DX: R10.9 Unspecified abdominal pain (principal); Z72.89 Other problems related to lifestyle | CPT/HCPCS: 99202 ==

== ENCOUNTER 2022-04-27 05:01 | Emergency (ER) | payer MEDICAID, SELFPAY ==
--- NOTE | ~2022-04-27 | CT_ITS ---
EXAMINATION: CT ABDOMEN AND PELVIS WITHOUT CONTRAST CLINICAL INFORMATION: Abdominal pain COMPARISON: Previous CT of the abdomen and pelvis most recent November 2021 TECHNIQUE: Multidetector volumetric imaging was performed from the superior aspect of the liver through the pubic symphysis. Sagittal and coronal reformatted images were obtained on the technologist's workstation. This CT examination was performed using dose optimization techniques as appropriate, variously including the following: *Automated exposure control *Adjustment of mA and/or kV according to patient size (this includes techniques or standardized protocols for targeted exams where dose is matched to indication/reason for exam; i.e. extremities or head) *Use of iterative reconstruction technique DLP: 799 mGy-cm FINDINGS: LUNG BASES: The visualized lung bases are unremarkable. LIVER, GALLBLADDER, AND BILIARY TREE: The liver is normal in size, shape, and attenuation. No focal hepatic lesion or biliary ductal dilatation is present. The gallbladder is unremarkable with no evidence of radiopaque gallstones, gallbladder wall thickening, or obvious pericholecystic inflammatory changes. PANCREAS: Unremarkable. SPLEEN: Unremarkable. ADRENAL GLANDS: Unremarkable. KIDNEYS AND URETERS: There is a horseshoe kidney. There are multiple left renal stones. There is mild left hydronephrosis. This is similar to previous exam. No left ureteral dilatation or ureteral stone is seen. Right renal moiety is normal. BLADDER: Not optimally distended but appears unremarkable.. GASTROINTESTINAL TRACT: The small and large bowel are unremarkable. The appendix is normal. ABDOMINAL WALL: Right inguinal hernia containing fat. LYMPH NODES: Normal. VASCULAR: Unremarkable. PELVIC VISCERA: Normal size. Central prostate gland calcifications. OSSEOUS STRUCTURES: Unremarkable. CT/CT abdomen pelvis wo IV con IMPRESSION: Horseshoe kidney. Left renal stones and mild left hydronephrosis. This is similar to November 2021 exam. Fleischner guidelines were followed.
[2022-04-27 05:11] VITALS: BP 138/91; PULSE 110; RESP 18; TEMP 37.2; O2SAT 100; BMI 32.8
[2022-04-27 06:15] LABS: MANUAL DIFF FLAG NO
[2022-04-27 06:16] LABS: Basophils Percent Auto 0.4 % (0-2); Eosinophils Absolute Auto 0.1 X10*3/uL (0.0-0.4); Eosinophils Percent Auto 2.2 % (0-4); Hematocrit 40.5 % (42.0-52.0); Imm Gran Abs Auto 0.02 X10*3/uL (0.00-0.03); Imm Gran Pct Auto 0.4 % (0.0-0.4); Lymphocytes Absolute Auto 1.7 X10*3/uL (1.2-4.9); Lymphocytes Percent Auto 30.2 % (20-40); Mean Corpuscular HGB Conc 34.6 g/dl (31.0-36.0); Mean Corpuscular Volume 89.8 fL (80.0-98.0); Mean Platelet Volume 8.8 fL (9.4-12.4); Monocytes Absolute Auto 0.5 X10*3/uL (0.1-1.2); Monocytes Percent Auto 9.8 % (2-11); Neutrophils Absolute Auto 3.1 x10*3/uL (2.0-8.3); Platelet Count 262 X10*3/uL (160-400); Red Blood Count 4.51 X10*6/uL (4.60-5.80); Red Cell Distribution Width 12.5 % (11.0-16.0); White Blood Count 5.5 X10*3/uL (4.8-10.8)
[2022-04-27 06:19] VITALS: BP 128/78; PULSE 76; RESP 19; TEMP 36.6; O2SAT 97
[2022-04-27 06:45] LABS: Appearance Urine Clear; Color Urine Yellow; Glucose Urine UA Negative (Negative); Leukocyte Esterase Urine Negative (Negative); Nitrite Urine Negative (Negative); PH 6.5 (5.0-9.0); Specific Gravity - Urine 1.025 (1.005-1.025); Urine Blood Negative (Negative); Urine Ketones Trace mg/dL (Negative); Urine Protein Trace mg/dL (Neg-Trace)
--- NOTE | 2022-04-27 06:48 | ED_ITS ---
HPI - Nausea/Vomiting/Diarrhea General Chief complaint: Nausea/Vomiting/Diarrhea Stated complaint: Abd pain Time Seen by Provider: 04/27/22 05:41 Source: patient Mode of arrival: ambulatory History of Present Illness HPI Narrative: 41-year-old male who presents with onset of abdominal discomfort in the epigastric area associated with nausea and vomiting but denies any fever. Patient states he has had some chills as well as diarrhea but otherwise denies any shortness of breath, urinary pain/burning/frequency and denies any flank pain consistent with his prior history of renal colic. Patient states that his symptoms started after he ate some Telugu food. Related Data Home Medications Medication Instructions Recorded Confirmed buprenorphine 8 mg-naloxone 2 mg 2 strip sublingual DAILY 12/03/21 12/17/21 sublingual film (Suboxone) polyethylene glycol 3350 17 17 g PO DAILY PRN Constipation 12/09/21 12/17/21 gram/dose oral powder (Miralax) docusate sodium 100 mg capsule 100 mg PO DAILY 12/17/21 12/17/21 (Dulcolax Stool Softener (docusate)) Allergies Allergy/AdvReac Type Severity Reaction Status Date / Time No Known Allergies Allergy Verified 12/17/21 12:09 Review of Systems Review of Systems: Pertinent positives and negatives as stated in HPI 10 point review of systems otherwise negative. [facility] Past Medical History Source: nursing notes reviewed Medical History Small bowel obstruction Surgical History Hx of kidney disease Social History Social History Household Members Other:: - 4 sons- (17-24) Alcohol intake: current Alcohol intake frequency: a few times a month Patient Tobacco Use Status: Never used Tobacco Advance Directives: No Advance Directives Information Provided: Yes Current occupational status: employed Current occupation: [employer] Physical Exam Vital Signs: Vital Signs: Last Vital Signs Temp 97.9 F 04/27/22 06:19 Pulse 76 04/27/22 06:19 Resp 19 04/27/22 06:19 BP 128/78 04/27/22 06:19 Pulse Ox 97 04/27/22 06:19 O2 Del Method 04/27/22 06:19 BMI result Body Mass Index 32.8 VITAL SIGNS: Reviewed. GENERAL: Well developed, well nourished, in no acute distress. HEAD: Normocephalic/atraumatic EYES: PERRLA, EOMI EARS: Ext canals without abnormality OROPHARYNX: no oral lesions noted, posterior pharynx clear LUNGS: Normal breath sounds. No adventitious sounds or accessory muscle use. SpO2<97> CARDIOVASCULAR: Regular rate and rhythm without noted murmurs ABDOMEN: Soft, mild discomfort in upper mid abdomen without rebound, non- distended with bowel sounds. MUSCULOSKELETAL: No tenderness, deformities, or effusions noted on gross inspection. EXTREMITIES: No cyanosis, clubbing or edema. SKIN: Inspection of the skin reveals no rashes NEUROLOGIC: Alert and oriented x 4. Strength and sensation to light touch were grossly intact x 4. Course Course Course Narrative: 41-year-old male with history and clinical presentation suggestive of possible food poisoning. But will rule out SBO, renal colic. Patient has known horseshoe kidney MDM - Nausea/Vomiting/Diarrhea Lab Data Result diagrams: 04/27/22 06:11 04/27/22 06:11 Labs: Lab Results 04/27/22 Range/Units 06:11 WBC 5.5 (4.8-10.8) X10*3/uL RBC 4.51 L (4.60-5.80) X10*6/uL Hgb 14.0 (14.0-18.0) g/dl Hct 40.5 L (42.0-52.0) % MCV 89.8 (80.0-98.0) fL MCH 31.0 (27.0-33.0) pg MCHC 34.6 (31.0-36.0) g/dl RDW 12.5 (11.0-16.0) % Plt Count 262 (160-400) X10*3/uL MPV 8.8 L (9.4-12.4) fL Immature Gran % (Auto) 0.4 (0.0-0.4) % Neut % (Auto) 57.0 (45-73) % Lymph % (Auto) 30.2 (20-40) % [place] % (Auto) 9.8 (2-11) % Eos % (Auto) 2.2 (0-4) % Baso % (Auto) 0.4 (0-2) % Lymph # (Auto) 1.7 (1.2-4.9) X10*3/uL [place] # (Auto) 0.5 (0.1-1.2) X10*3/uL Eos # (Auto) 0.1 (0.0-0.4) X10*3/uL Baso # (Auto) 0.0 (0.0-0.2) X10*3/uL Abs Immat Gran (auto) 0.02 (0.00-0.03) X10*3/uL Absolute Neuts (auto) 3.1 (2.0-8.3) x10*3/uL Absolute Nucleated RBC 0.000 (0.0-0.012) X10*3/uL Nucleated RBC % (auto) 0.0 (0.0-0.2) /100WBC Discharge Plan Discharge Clinical Impression: Nausea, vomiting and diarrhea Patient Disposition: Still a Patient Prescriptions: No Action buprenorphine-naloxone [Suboxone] 8-2 mg film 2 strip sublingual DAILY polyethylene glycol 3350 [Miralax] 17 gram/dose powder 17 g PO DAILY PRN (Reason: Constipation) docusate sodium [Dulcolax Stool Softener (dss)] 100 mg capsule 100 mg PO DAILY
[2022-04-27 06:56] LABS: Alanine Aminotransferase 64 U/L (0-40); Albumin Level 4.2 g/dL (3.5-5.0); Alkaline Phosphatase 72 U/L (39-117); Anion Gap 16 (12-20); Aspartate Amino Transferase 37 U/L (5-37); Bilirubin Total 0.8 mg/dL (0.0-1.0); Blood Urea Nitrogen 21 mg/dL (9-16); Calcium 9.2 mg/dL (8.4-10.2); Carbon Dioxide 28 mmol/L (22-29); Chloride 102 mmol/L (96-108); Creatinine Clr Calc Pharmacy 94.6; Estimated Glomerular Filt Rate > 60; Glucose Random 104 mg/dL (60-115); Lipase 19 U/L (8-78); Potassium 4.5 mmol/L (3.3-5.1); Sodium 141 mmol/L (135-145); Total Protein 7.2 g/dL (6.5-8.0)
[2022-04-27 07:41] VITALS: BP 138/84; PULSE 66; RESP 14; TEMP 36.6; O2SAT 97
[2022-04-27 09:16] VITALS: BP 138/86; PULSE 67; RESP 16; TEMP 36.6; O2SAT 98
--- NOTE | 2022-04-27 09:19 | PC.NURSE ---
patient a/ox4 . vandarla . heart rate regular at 68 beat s. lungs clear . skin pink warm and dry . abdomen soft. not tender ,. positive bowel sounds noted in quadrants . patients reports having Turkish food an vomiting after three times . and having lower abdominal pain after . currently 0/10 pain reported . patient aware of plan of care .
--- NOTE | 2022-04-27 09:24 | PC.NURSE ---
patient a/ox4 . patient reports no pain . no vomiting or abdominal discomfort noted . went over discharge instructions as ordered by provider . patient to follow up with provider on discharge paperwork . patient has no questions at this time . return to Ed if symptoms worsen .
== END 2022-04-27 09:25 | disposition home or self-care (01) ==
PROVIDERS: Student in an Organized Health Care Education/Training Program; Emergency Provider Emergency Medicine; PCP Internal Medicine
DX: R11.2 Nausea with vomiting, unspecified (principal); R19.7 Diarrhea, unspecified; R10.10 Upper abdominal pain, unspecified
CPT/HCPCS: 36415; 74176; 80053; 81003; 83690; 85025; 99284

== ENCOUNTER 2022-06-18 03:00 | Emergency (ER) | payer MEDICAID, SELFPAY ==
--- NOTE | ~2022-06-18 | CT_ITS ---
EXAMINATION: CT ABDOMEN AND PELVIS WITH CONTRAST CLINICAL INFORMATION: Epigastric pain COMPARISON: 04/27/2022 TECHNIQUE: Multidetector volumetric images were obtained from the superior aspect of the liver through the pubic symphysis following administration 85 mL of Omnipaque 350 intravenous contrast. Sagittal and coronal reformatted images were obtained on the technologist's workstation. Oral contrast: No This CT examination was performed using dose optimization techniques as appropriate, variously including the following: *Automated exposure control *Adjustment of mA and/or kV according to patient size (this includes techniques or standardized protocols for targeted exams where dose is matched to indication/reason for exam; i.e. extremities or head) *Use of iterative reconstruction technique DLP: 746 mGy-cm FINDINGS: LUNG BASES: The visualized lung bases are unremarkable. LIVER, GALLBLADDER, AND BILIARY TREE: The liver is normal in size, shape, and attenuation. No focal hepatic lesion or biliary ductal dilatation is present. The gallbladder is unremarkable with no evidence of radiopaque gallstones, gallbladder wall thickening, or obvious pericholecystic inflammatory changes. PANCREAS: Unremarkable. SPLEEN: Unremarkable. ADRENAL GLANDS: Unremarkable. KIDNEYS AND URETERS: Horseshoe kidney. Bilateral renal calculi. Within the left moiety there are multiple layering calculi posteriorly measuring 0.3 cm. These are 10.5 cm from the posterior axillary line. Mild fullness of the left collecting system. No hydroureter. No calculi. BLADDER: Unremarkable. GASTROINTESTINAL TRACT: The stomach is unremarkable. Normal caliber small bowel. No obstruction. No colonic wall thickening or acute inflammation. No free air or free fluid. ABDOMINAL WALL: Fat-containing bilateral inguinal hernias. LYMPH NODES: Normal. VASCULAR: Unremarkable. PELVIC VISCERA: Normal sized prostate. Coarse calcifications. The seminal vesicles are unremarkable. OSSEOUS STRUCTURES: No acute or suspicious osseous abnormality. Mild degenerative change throughout the spine. CT/CT abdomen pelvis w IV con IMPRESSION: Horseshoe kidney. Bilateral renal calculi. Mild fullness of the left collecting system. No hydroureter. The appearance is fairly similar to previous. Fleischner guidelines were followed.
[2022-06-18 03:06] VITALS: BP 139/86; PULSE 95; RESP 18; TEMP 36.6; O2SAT 99; BMI 34.2
[2022-06-18 03:19] LABS: Basophils Percent Auto 0.3 % (0-2); Eosinophils Absolute Auto 0.2 X10*3/uL (0.0-0.4); Eosinophils Percent Auto 2.4 % (0-4); Hematocrit 42.3 % (42.0-52.0); Hemoglobin 14.4 g/dl (14.0-18.0); Imm Gran Abs Auto 0.02 X10*3/uL (0.00-0.03); Imm Gran Pct Auto 0.3 % (0.0-0.4); Lymphocytes Absolute Auto 2.4 X10*3/uL (1.2-4.9); Lymphocytes Percent Auto 38.3 % (20-40); MANUAL DIFF FLAG NO; Mean Corpuscular Hemoglobin 30.4 pg (27.0-33.0); Mean Corpuscular Volume 89.2 fL (80.0-98.0); Mean Platelet Volume 8.5 fL (9.4-12.4); Monocytes Absolute Auto 0.7 X10*3/uL (0.1-1.2); Monocytes Percent Auto 10.3 % (2-11); Neutrophils Absolute Auto 3.1 x10*3/uL (2.0-8.3); Neutrophils Percent Auto 48.4 % (45-73); Platelet Count 254 X10*3/uL (160-400); Red Blood Count 4.74 X10*6/uL (4.60-5.80); Red Cell Distribution Width 12.4 % (11.0-16.0); White Blood Count 6.3 X10*3/uL (4.8-10.8)
--- NOTE | 2022-06-18 03:20 | PC.NURSE ---
Patient presents to ED endorsing sudden-onset epigastric pain that woke him up from sleep at approximately 2AM. Hx SBO, gastroenteritis, and constipation. +Nausea, no emesis. Patient is alert, oriented x4.
--- NOTE | 2022-06-18 03:25 | ECG_ITS ---
Test Reason : epigastric pain Blood Pressure : / mmHG Vent. Rate : 082 BPM Atrial Rate : 082 BPM P-R Int : 166 ms QRS Dur : 080 ms QT Int : 366 ms P-R-T Axes : 066 043 051 degrees QTc Int : 427 ms Normal sinus rhythm Normal ECG When compared with ECG of 16-NOV-2021 17:40, No significant change was found Referred By: Emely Dangelo Electronically Signed By:TRANG PERKINS MD
--- NOTE | 2022-06-18 03:29 | ED_ITS ---
HPI - Abdominal Pain General Chief Complaint: Abdominal Pain Stated Complaint: abd pain , vomitting Time Seen by Provider: 06/18/22 03:22 Source: patient Mode of arrival: ambulatory Limitations: no limitations History of Present Illness HPI narrative: Patient comes to the emergency room complaining of severe abdominal pain. Patient states it started approximately 1-1/2 hours ago. Patient went to sleep without any pain, however, the pain woke him up from sleep. Patient complaining of nausea vomiting, no diarrhea. Patient has history gastritis. Patient denies drinking alcohol, states he stopped drinking alcohol because he thought that the alcohol was giving him gastritis. Patient states that he has been taking up to 4-5 doses of ibuprofen daily for 1 week to help control the abdominal pain. Patient has been seen multiple times in the ED and by Gastroenterology for abdominal pain. Patient has previously been diagnosed with gastritis Related Data Home Medications Medication Instructions Recorded Confirmed buprenorphine 8 mg-naloxone 2 mg 2 strip sublingual DAILY 12/03/21 12/17/21 sublingual film (Suboxone) polyethylene glycol 3350 17 17 g PO DAILY PRN Constipation 12/09/21 12/17/21 gram/dose oral powder (Miralax) docusate sodium 100 mg capsule 100 mg PO DAILY 12/17/21 12/17/21 (Dulcolax Stool Softener (docusate)) Previous Rx's Medication Instructions Recorded acetaminophen 500 mg tablet 500 mg PO Q6H PRN pain #20 tabs 06/18/22 hyoscyamine sulfate 0.125 mg tablet 0.125 mg PO QID PRN dyspepsia #14 06/18/22 tabs omeprazole 40 mg capsule,delayed 40 mg PO DAILY #30 caps 06/18/22 release Allergies Allergy/AdvReac Type Severity Reaction Status Date / Time No Known Allergies Allergy Verified 12/17/21 12:09 Review of Systems Review of Systems Constitutional : No Weight loss, No Fever, No Chills, No Night Sweats, No Fatigue, No Malaise ENT/Mouth : No Hearing loss, No Ear Pain, No Nasal Congestion, No Sinus Pain, No Hoarseness, No sore throat, No Rhinorrhea, No Swallowing Difficulty Eyes: No Eye Pain, No Swelling, No Redness, No Foreign Body, No Discharge, No Vision Changes Cardiovascular : No Chest Pain, No SOB, No Dyspnea on Exertion, No Orthopnea, No Edema, No Palpitations Respiratory : No Cough, No Sputum, No Wheezing, No Smoke Exposure, No Dyspnea Gastrointestinal : Complaining of nausea vomiting No Diarrhea, No Constipation, complaining of diffuse abdominal pain, worse in epigastric area and periumbilical area, denies bloody stools or melena Genitourinary : no irregular bleeding, No Dysuria, No Urinary Frequency, No Hematuria, No Urinary Incontinence, No Urgency, No Flank Pain, No Urinary Flow Changes, No Hesitancy Musculoskeletal : No joint pain, No Myalgias, No Joint Swelling Skin : No Skin Lesions, No rash Neuro : No Weakness, No Numbness, No Paresthesias, No Loss of Consciousness, No Dizziness, No Headache Psych : No Anxiety/Panic, No Depression, No SI/HI/AH/VH, No Social Issues, Heme/Lymph: No Bruising, No Bleeding,No Lymphadenopathy Endocrine : No Polyuria, No Polydipsia, No Temperature Intolerance PMFSH Past Medical History Medical History Small bowel obstruction Surgical History Hx of kidney disease Social History Social History Household Members Other:: - 4 sons- (17-24) Alcohol intake: current Alcohol intake frequency: a few times a week Patient Tobacco Use Status: Never used Tobacco Advance Directives: No Current occupational status: employed Current occupation: [employer] Physical Exam ED Vital Signs: Vital Signs - 24 hr 06/18/22 03:06 06/18/22 03:44 Temperature 97.8 F Pulse Rate 95 Respiratory Rate 18 17 Blood Pressure 139/86 Pulse Oximetry 99 Oxygen Delivery Method Room Air BMI result Body Mass Index 34.2 Const Other: Appearance: Alert. Oriented X3. Seems uncomfortable Eyes: Pupils equal, round and reactive to light. ENT: Pharynx normal. Neck: Normal inspection. Neck supple. No lymph nodes noted. No crepitus CVS: Normal heart rate and rhythm. Pulses normal. Normal S1 and S2 Respiratory: No respiratory distress. Breath sounds normal. No Wheezing. No rales Abdomen: Soft , distended, tender to palpation in epigastric and periumbilical area. Skin: Skin warm and dry. Normal skin color. Normal skin turgor. Extremities: No lower extremity edema. No Lacerations. No Rash Neuro: Oriented X 3. No motor deficit. No sensory deficit. Moving all extremities. No slurred speech. CN 2 through 12 grossly intact Psych: calm, cooperative, normal affect Course Course Course Narrative: Patient has a surgical scar that is old and well healed in his abdomen. Patient states that he had surgery as a child and does not remember what his medical condition was. Patient has had bowel obstructions in the past. Patient also has gastritis and has been taking ibuprofen to help with the pain, likely worsening the gastritis and possibly causing a perforation. At this time, patient getting IV fluids, pantoprazole, Zofran, morphine. Patient's labs and imaging pending. CT scan is negative for any acute pathology. Unchanged from the previous CT scan. Patient was given a GI cocktail. Omeprazole, hyoscyamine was prescribed to the patient. I discussed with the patient that he needs an upper endoscopy. Also, I discussed with the patient that he should not be taking ibuprofen for pain relief, he should take Tylenol instead. Medications Administered Discontinued Medications Generic Name Dose Route Start Last Admin Trade Name Freq PRN Reason Stop Dose Admin Sodium Chloride 1,000 mls @ 999 mls/hr 06/18/22 03:25 06/18/22 04:39 Ns IVCONT 06/18/22 04:25 Infused .Q1H1M ONE Infusion Iohexol 85 ml 06/18/22 04:30 06/18/22 04:31 Iohexol 350 Mg/Ml 100 Ml Infus..Btl IV 06/18/22 04:31 85 ml ONCE ONE Administration Morphine Sulfate 4 mg 06/18/22 03:25 06/18/22 03:44 Morphine Sulfate 4 Mg/Ml Cartridge IVPUSH 06/18/22 03:26 4 mg ONCE ONE Administration Protocol Ondansetron HCl 4 mg 06/18/22 03:25 06/18/22 03:42 Ondansetron Hcl 4 Mg/2 Ml Vial IVPUSH 06/18/22 03:26 4 mg ONCE ONE Administration Pantoprazole Sodium 80 mg 06/18/22 03:25 06/18/22 03:43 Pantoprazole Sodium 40 Mg/10 Ml Vial IVPUSH 06/18/22 03:26 80 mg ONCE ONE Administration MDM - Abdominal Pain Lab Data Result diagrams: 06/18/22 03:12 06/18/22 03:12 Labs: Lab Results 06/18/22 06/18/22 06/18/22 Range/Units 03:12 03:12 03:12 WBC 6.3 (4.8-10.8) X10*3/uL RBC 4.74 (4.60-5.80) X10*6/uL Hgb 14.4 (14.0-18.0) g/dl Hct 42.3 (42.0-52.0) % MCV 89.2 (80.0-98.0) fL MCH 30.4 (27.0-33.0) pg MCHC 34.0 (31.0-36.0) g/dl RDW 12.4 (11.0-16.0) % Plt Count 254 (160-400) X10*3/uL MPV 8.5 L (9.4-12.4) fL Immature Gran % (Auto) 0.3 (0.0-0.4) % Neut % (Auto) 48.4 (45-73) % Lymph % (Auto) 38.3 (20-40) % [place] % (Auto) 10.3 (2-11) % Eos % (Auto) 2.4 (0-4) % Baso % (Auto) 0.3 (0-2) % Lymph # (Auto) 2.4 (1.2-4.9) X10*3/uL [place] # (Auto) 0.7 (0.1-1.2) X10*3/uL Eos # (Auto) 0.2 (0.0-0.4) X10*3/uL Baso # (Auto) 0.0 (0.0-0.2) X10*3/uL Abs Immat Gran (auto) 0.02 (0.00-0.03) X10*3/uL Absolute Neuts (auto) 3.1 (2.0-8.3) x10*3/uL Absolute Nucleated RBC 0.000 (0.0-0.012) X10*3/uL Nucleated RBC % (auto) 0.0 (0.0-0.2) /100WBC PT (10.0-13.1) SEC INR (0.9-1.1) Sodium 141 (135-145) mmol/L Potassium 4.2 (3.3-5.1) mmol/L Chloride 104 (96-108) mmol/L Carbon Dioxide 27 (22-29) mmol/L Anion Gap 14 (12-20) BUN 16 (9-16) mg/dL Creatinine 0.86 (0.5-1.4) mg/dL Estim Creat Clear Calc 125.6 Estimated GFR > 60 Random Glucose 103 (60-115) mg/dL Lactic Acid (0.5-2.0) mmol/L Calcium 9.2 (8.4-10.2) mg/dL Magnesium 1.8 (1.6-2.6) mg/dL Total Bilirubin 0.5 (0.0-1.0) mg/dL Direct Bilirubin < 0.2 (0.0-0.5) mg/dL AST 39 H (5-37) U/L ALT 58 H (0-40) U/L Alkaline Phosphatase 71 (39-117) U/L Troponin I High Sens (<3.5-35.0) ng/L Total Protein 7.4 (6.5-8.0) g/dL Albumin 4.0 (3.5-5.0) g/dL Lipase 18 (8-78) U/L Urine Color Urine Appearance Urine pH (5.0-9.0) Ur Specific [place] (1.005-1.025) Urine Protein (Neg-Trace) mg/dL Urine Glucose (UA) (Negative) mg/dL Urine Ketones (Negative) mg/dL Urine Blood (Negative) Urine Nitrite (Negative) Ur Leukocyte Esterase (Negative) Ethyl Alcohol < 10 mg/dL COVID-19 ([facility]) Negative (Negative) COVID-19 Clin Com See Note 06/18/22 06/18/22 06/18/22 Range/Units 03:12 03:40 03:40 WBC (4.8-10.8) X10*3/uL RBC (4.60-5.80) X10*6/uL Hgb (14.0-18.0) g/dl Hct (42.0-52.0) % MCV (80.0-98.0) fL MCH (27.0-33.0) pg MCHC (31.0-36.0) g/dl RDW (11.0-16.0) % Plt Count (160-400) X10*3/uL MPV (9.4-12.4) fL Immature Gran % (Auto) (0.0-0.4) % Neut % (Auto) (45-73) % Lymph % (Auto) (20-40) % [place] % (Auto) (2-11) % Eos % (Auto) (0-4) % Baso % (Auto) (0-2) % Lymph # (Auto) (1.2-4.9) X10*3/uL [place] # (Auto) (0.1-1.2) X10*3/uL Eos # (Auto) (0.0-0.4) X10*3/uL Baso # (Auto) (0.0-0.2) X10*3/uL Abs Immat Gran (auto) (0.00-0.03) X10*3/uL Absolute Neuts (auto) (2.0-8.3) x10*3/uL Absolute Nucleated RBC (0.0-0.012) X10*3/uL Nucleated RBC % (auto) (0.0-0.2) /100WBC PT 12.8 (10.0-13.1) SEC INR 1.1 (0.9-1.1) Sodium (135-145) mmol/L Potassium (3.3-5.1) mmol/L Chloride (96-108) mmol/L Carbon Dioxide (22-29) mmol/L Anion Gap (12-20) BUN (9-16) mg/dL Creatinine (0.5-1.4) mg/dL Estim Creat Clear Calc Estimated GFR Random Glucose (60-115) mg/dL Lactic Acid 1.2 (0.5-2.0) mmol/L Calcium (8.4-10.2) mg/dL Magnesium (1.6-2.6) mg/dL Total Bilirubin (0.0-1.0) mg/dL Direct Bilirubin (0.0-0.5) mg/dL AST (5-37) U/L ALT (0-40) U/L Alkaline Phosphatase (39-117) U/L Troponin I High Sens < 3.5 (<3.5-35.0) ng/L Total Protein (6.5-8.0) g/dL Albumin (3.5-5.0) g/dL Lipase (8-78) U/L Urine Color Urine Appearance Urine pH (5.0-9.0) Ur Specific [place] (1.005-1.025) Urine Protein (Neg-Trace) mg/dL Urine Glucose (UA) (Negative) mg/dL Urine Ketones (Negative) mg/dL Urine Blood (Negative) Urine Nitrite (Negative) Ur Leukocyte Esterase (Negative) Ethyl Alcohol mg/dL COVID-19 ([facility]) (Negative) COVID-19 Clin Com 06/18/22 Range/Units 04:26 WBC (4.8-10.8) X10*3/uL RBC (4.60-5.80) X10*6/uL Hgb (14.0-18.0) g/dl Hct (42.0-52.0) % MCV (80.0-98.0) fL MCH (27.0-33.0) pg MCHC (31.0-36.0) g/dl RDW (11.0-16.0) % Plt Count (160-400) X10*3/uL MPV (9.4-12.4) fL Immature Gran % (Auto) (0.0-0.4) % Neut % (Auto) (45-73) % Lymph % (Auto) (20-40) % [place] % (Auto) (2-11) % Eos % (Auto) (0-4) % Baso % (Auto) (0-2) % Lymph # (Auto) (1.2-4.9) X10*3/uL [place] # (Auto) (0.1-1.2) X10*3/uL Eos # (Auto) (0.0-0.4) X10*3/uL Baso # (Auto) (0.0-0.2) X10*3/uL Abs Immat Gran (auto) (0.00-0.03) X10*3/uL Absolute Neuts (auto) (2.0-8.3) x10*3/uL Absolute Nucleated RBC (0.0-0.012) X10*3/uL Nucleated RBC % (auto) (0.0-0.2) /100WBC PT (10.0-13.1) SEC INR (0.9-1.1) Sodium (135-145) mmol/L Potassium (3.3-5.1) mmol/L Chloride (96-108) mmol/L Carbon Dioxide (22-29) mmol/L Anion Gap (12-20) BUN (9-16) mg/dL Creatinine (0.5-1.4) mg/dL Estim Creat Clear Calc Estimated GFR Random Glucose (60-115) mg/dL Lactic Acid (0.5-2.0) mmol/L Calcium (8.4-10.2) mg/dL Magnesium (1.6-2.6) mg/dL Total Bilirubin (0.0-1.0) mg/dL Direct Bilirubin (0.0-0.5) mg/dL AST (5-37) U/L ALT (0-40) U/L Alkaline Phosphatase (39-117) U/L Troponin I High Sens (<3.5-35.0) ng/L Total Protein (6.5-8.0) g/dL Albumin (3.5-5.0) g/dL Lipase (8-78) U/L Urine Color Yellow Urine Appearance Clear Urine pH 7.5 (5.0-9.0) Ur Specific [place] >= 1.030 H (1.005-1.025) Urine Protein Negative (Neg-Trace) mg/dL Urine Glucose (UA) Negative (Negative) mg/dL Urine Ketones Negative (Negative) mg/dL Urine Blood Negative (Negative) Urine Nitrite Negative (Negative) Ur Leukocyte Esterase Negative (Negative) Ethyl Alcohol mg/dL COVID-19 ([facility]) (Negative) COVID-19 Clin Com Discharge Plan Discharge Clinical Impression: Peptic ulcer disease Patient Disposition: Home, Self-Care Instructions: Peptic Ulcer (ED), Gastritis (ED), Diet for Stomach Ulcers and Gastritis (ED) Additional Instructions: Please follow-up with your primary care physician tomorrow. If you have any worsening or new symptoms, please return to the emergency room or call 911 Prescriptions: New hyoscyamine sulfate 0.125 mg tablet 0.125 mg PO QID PRN (Reason: dyspepsia) Qty: 14 0RF omeprazole 40 mg capsule,delayed release(DR/EC) 40 mg PO DAILY Qty: 30 0RF acetaminophen 500 mg tablet 500 mg PO Q6H PRN (Reason: pain) Qty: 20 0RF No Action buprenorphine-naloxone [Suboxone] 8-2 mg film 2 strip sublingual DAILY polyethylene glycol 3350 [Miralax] 17 gram/dose powder 17 g PO DAILY PRN (Reason: Constipation) docusate sodium [Dulcolax Stool Softener (dss)] 100 mg capsule 100 mg PO DAILY Referrals: Jass Alves [Physician] - 1 day
[2022-06-18 03:39] LABS: COVID-19 Test Negative (Negative); IDNOW Serial# BCCEAD1C
[2022-06-18] MEDS: 0.9 % Sodium Chloride 1,000 ML 999 ML IVCONT (03:41)
[2022-06-18] MEDS: ondansetron HCL 4 MG/2 ML VIAL IVPUSH (03:42)
[2022-06-18] MEDS: Pantoprazole Sodium 40 MG/10 ML VIAL 80 MG IVPUSH (03:43)
[2022-06-18 03:44] VITALS: RESP 17
[2022-06-18] MEDS: Morphine Sulfate 4 MG/ML CARTRIDGE IVPUSH (03:44)
[2022-06-18 03:47] LABS: Alanine Aminotransferase 58 U/L (0-40); Alkaline Phosphatase 71 U/L (39-117); Anion Gap 14 (12-20); Aspartate Amino Transferase 39 U/L (5-37); Bilirubin Direct < 0.2 mg/dL (0.0-0.5); Bilirubin Total 0.5 mg/dL (0.0-1.0); Blood Urea Nitrogen 16 mg/dL (9-16); Calcium 9.2 mg/dL (8.4-10.2); Carbon Dioxide 27 mmol/L (22-29); Chloride 104 mmol/L (96-108); Creatinine Clr Calc Pharmacy 125.6; Estimated Glomerular Filt Rate > 60; Ethanol < 10 mg/dL; Glucose Random 103 mg/dL (60-115); Lipase 18 U/L (8-78); Magnesium 1.8 mg/dL (1.6-2.6); Potassium 4.2 mmol/L (3.3-5.1); Sodium 141 mmol/L (135-145); Total Protein 7.4 g/dL (6.5-8.0)
[2022-06-18 03:58] LABS: INTERNATIONAL NORM RATIO 1.1 (0.9-1.1); Prothrombin Time 12.8 SEC (10.0-13.1)
[2022-06-18 03:58] LABS: Troponin-I High Sensitivity < 3.5 ng/L (<3.5-35.0)
[2022-06-18 04:02] LABS: Lactic Acid 1.2 mmol/L (0.5-2.0)
[2022-06-18] MEDS: iohexoL 350 MG/ML 100 ML INFUS..BTL 85 ML IV (04:31)
[2022-06-18 04:32] LABS: Appearance Urine Clear; Color Urine Yellow; Glucose Urine UA Negative (Negative); Leukocyte Esterase Urine Negative (Negative); Nitrite Urine Negative (Negative); PH 7.5 (5.0-9.0); Specific Gravity - Urine >= 1.030 (1.005-1.025); Urine Blood Negative (Negative); Urine Ketones Negative (Negative); Urine Protein Negative (Neg-Trace)
[2022-06-18] MEDS: Lidocaine HCl Viscous 2 % 15 ML SOLUTION MUCOUS MEM (04:59)
== END 2022-06-18 05:14 | disposition home or self-care (01) ==
PROVIDERS: Emergency Provider Emergency Medicine; PCP Internal Medicine
DX: K27.9 Peptic ulcer, site unspecified, unspecified as acute or chronic, without hemorrhage or perforation (principal); R10.13 Epigastric pain; Z20.822 Contact with and (suspected) exposure to COVID-19; Z79.899 Other long term (current) drug therapy
CPT/HCPCS: 36415; 74177; 80048; 80076; 81003; 82077; 83605; 83690; 83735; 84484; 85025; 85610; 87635; 93005; 96361; 96374; 96375; 99284; J2270; J2405; Q9967

== ENCOUNTER 2022-08-31 17:54 | Emergency (ER) | payer MEDICAID, SELFPAY ==
[2022-08-31 18:02] VITALS: BP 154/97; PULSE 120; RESP 18; TEMP 36.7; O2SAT 99; BMI 34.2
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
[2022-08-31 18:19] LABS: MANUAL DIFF FLAG NO
[2022-08-31 18:20] LABS: Basophils Percent Auto 0.2 % (0-2); Eosinophils Percent Auto 0.3 % (0-4); Hematocrit 45.5 % (42.0-52.0); Hemoglobin 15.4 g/dl (14.0-18.0); Imm Gran Abs Auto 0.06 X10*3/uL (0.00-0.03); Imm Gran Pct Auto 0.5 % (0.0-0.4); Lymphocytes Absolute Auto 1.5 X10*3/uL (1.2-4.9); Lymphocytes Percent Auto 11.1 % (20-40); Mean Corpuscular HGB Conc 33.8 g/dl (31.0-36.0); Mean Corpuscular Hemoglobin 30.6 pg (27.0-33.0); Mean Corpuscular Volume 90.5 fL (80.0-98.0); Mean Platelet Volume 8.5 fL (9.4-12.4); Monocytes Absolute Auto 0.9 X10*3/uL (0.1-1.2); Monocytes Percent Auto 6.9 % (2-11); Neutrophils Absolute Auto 10.8 x10*3/uL (2.0-8.3); Platelet Count 307 X10*3/uL (160-400); Red Blood Count 5.03 X10*6/uL (4.60-5.80); Red Cell Distribution Width 12.8 % (11.0-16.0); White Blood Count 13.3 X10*3/uL (4.8-10.8)
[2022-08-31 18:39] LABS: Alanine Aminotransferase 60 U/L (0-40); Albumin Level 4.4 g/dL (3.5-5.0); Alkaline Phosphatase 84 U/L (39-117); Anion Gap 16 (12-20); Aspartate Amino Transferase 92 U/L (5-37); Bilirubin Total 1.7 mg/dL (0.0-1.0); Blood Urea Nitrogen 14 mg/dL (9-16); Calcium 9.4 mg/dL (8.4-10.2); Carbon Dioxide 25 mmol/L (22-29); Chloride 101 mmol/L (96-108); Estimated Glomerular Filt Rate > 60; Glucose Random 99 mg/dL (60-115); Potassium 4.4 mmol/L (3.3-5.1); Sodium 138 mmol/L (135-145); Total Protein 7.7 g/dL (6.5-8.0)
[2022-08-31 20:39] VITALS: BP 130/91; PULSE 97; RESP 18; TEMP 37.6; O2SAT 96
--- NOTE | 2022-08-31 20:47 | ED.ABDPAIN ---
HPI - Abdominal Pain General Chief Complaint: Abdominal Pain Stated Complaint: abdominal pain Time Seen by Provider: 08/31/22 20:46 Source: patient Mode of arrival: ambulatory Limitations: no limitations History of Present Illness HPI narrative: patient with history of gastritis frequent abdominal pain previous CT scan negative for gallstones comes in for 3 4 days of epigastric pain with nausea apparently patient went to cruise and had few drinks came back 3 days ago since then complaining pain pain is sharp get worse after eating food radiates to the back no melena no vomiting of blood patient took Prilosec earlier today Related Data Home Medications Medication Instructions Recorded Confirmed buprenorphine 8 mg-naloxone 2 mg 2 strip sublingual DAILY 12/03/21 12/17/21 sublingual film (Suboxone) polyethylene glycol 3350 17 17 g PO DAILY PRN Constipation 12/09/21 12/17/21 gram/dose oral powder (Miralax) docusate sodium 100 mg capsule 100 mg PO DAILY 12/17/21 12/17/21 (Dulcolax Stool Softener (docusate)) Previous Rx's Medication Instructions Recorded acetaminophen 500 mg tablet 500 mg PO Q6H PRN pain #20 tabs 06/18/22 hyoscyamine sulfate 0.125 mg tablet 0.125 mg PO QID PRN dyspepsia #14 06/18/22 tabs omeprazole 40 mg capsule,delayed 40 mg PO DAILY #30 caps 06/18/22 release pantoprazole 40 mg tablet,delayed 40 mg PO DAILY #30 tabs 08/31/22 release (Protonix) sucralfate 1 gram tablet 1 g PO BID #60 tabs 08/31/22 Allergies Allergy/AdvReac Type Severity Reaction Status Date / Time No Known Allergies Allergy Verified 12/17/21 12:09 Review of Systems Review of Systems Yes all other systems are reviewed and are negative PMFSH Past Medical History Medical History (Updated 08/31/22 @ 22:29 by Jin Ely MD) Horseshoe kidney Small bowel obstruction Surgical History Hx of kidney disease Social History Social History Household Members Other:: - 4 sons- (17-24) Alcohol intake: current Alcohol intake frequency: holidays/special occasions only Patient Tobacco Use Status: Never used Tobacco Smoked in Last 30 Days: No Advance Directives: No Advance Directives Information Provided: No Current occupational status: employed Current occupation: [employer] Physical Exam ED Vital Signs: Vital Signs - 24 hr 08/31/22 18:02 08/31/22 20:39 Temperature 98.1 F 99.6 F Pulse Rate 120 H 97 Respiratory Rate 18 18 Blood Pressure 154/97 H 130/91 H Pulse Oximetry 99 96 Oxygen Delivery Method Room Air Room Air BMI result Body Mass Index 34.2 Appearance: Alert. Oriented X3. No acute distress. Eyes: no icterus no pallor ENT: Pharynx normal. Oral Mucosa moist Neck: Normal inspection. Neck supple. CVS: Normal heart rate and rhythm. Pulses normal. Respiratory: No respiratory distress. Equal air entry bilateral, no wheezing/rales/rhonchi Abdomen: Soft mild epigastric tenderness. Bowel sounds are present, no mass palpable, no CVA tenderness Skin: Skin warm and dry. Normal skin color. Normal skin turgor. Extremities: No lower extremity edema. No calf tenderness Neuro: Oriented X 3. No motor deficit. Medical Decision Making Medical Decision Making [facility] Narrative: patient with epigastric tenderness with clinically gastritis felt better after IV fluids negative for pancreatitis no previous gallstones in the past had multiple CT scan done last year will discharge patient home on Protonix and sucralfate Lab Data 08/31/22 18:12 08/31/22 18:12 Labs: Lab Results 08/31/22 08/31/22 08/31/22 Range/Units 18:12 18:12 20:47 WBC 13.3 H (4.8-10.8) X10*3/uL RBC 5.03 (4.60-5.80) X10*6/uL Hgb 15.4 (14.0-18.0) g/dl Hct 45.5 (42.0-52.0) % MCV 90.5 (80.0-98.0) fL MCH 30.6 (27.0-33.0) pg MCHC 33.8 (31.0-36.0) g/dl RDW 12.8 (11.0-16.0) % Plt Count 307 (160-400) X10*3/uL MPV 8.5 L (9.4-12.4) fL Immature Gran % (Auto) 0.5 H (0.0-0.4) % Neut % (Auto) 81.0 H (45-73) % Lymph % (Auto) 11.1 L (20-40) % [place] % (Auto) 6.9 (2-11) % Eos % (Auto) 0.3 (0-4) % Baso % (Auto) 0.2 (0-2) % Lymph # (Auto) 1.5 (1.2-4.9) X10*3/uL [place] # (Auto) 0.9 (0.1-1.2) X10*3/uL Eos # (Auto) 0.0 (0.0-0.4) X10*3/uL Baso # (Auto) 0.0 (0.0-0.2) X10*3/uL Abs Immat Gran (auto) 0.06 H (0.00-0.03) X10*3/uL Absolute Neuts (auto) 10.8 H (2.0-8.3) x10*3/uL Absolute Nucleated RBC 0.000 (0.0-0.012) X10*3/uL Nucleated RBC % (auto) 0.0 (0.0-0.2) /100WBC Sodium 138 (135-145) mmol/L Potassium 4.4 (3.3-5.1) mmol/L Chloride 101 (96-108) mmol/L Carbon Dioxide 25 (22-29) mmol/L Anion Gap 16 (12-20) BUN 14 (9-16) mg/dL Creatinine 0.90 (0.5-1.4) mg/dL Estim Creat Clear Calc 120.0 Estimated GFR > 60 POC Glucose 108 (60-115) mg/dL Random Glucose 99 (60-115) mg/dL Calcium 9.4 (8.4-10.2) mg/dL Total Bilirubin 1.7 H (0.0-1.0) mg/dL AST 92 H (5-37) U/L ALT 60 H (0-40) U/L Alkaline Phosphatase 84 (39-117) U/L Total Protein 7.7 (6.5-8.0) g/dL Albumin 4.4 (3.5-5.0) g/dL Lipase 43 (8-78) U/L Medications Administered Discontinued Medications Generic Name Dose Route Start Last Admin Trade Name Freq PRN Reason Stop Dose Admin Al Hydroxide/Mg Hydroxide 30 ml 08/31/22 20:57 08/31/22 21:30 Magnesium Hydrox/Alum Hydrox 30 Ml Oral.Susp PO 08/31/22 20:58 30 ml ONCE ONE Administration Famotidine 20 mg 08/31/22 20:59 08/31/22 21:30 Famotidine/Pf 20 Mg/2 Ml Vial IVPUSH 08/31/22 21:00 20 mg ONCE ONE Administration Sodium Chloride 1,000 mls @ 999 mls/hr 08/31/22 20:59 08/31/22 21:29 Ns IV 08/31/22 21:59 999 mls/hr .Q1H1M ONE Administration Ketorolac Tromethamine 30 mg 08/31/22 20:59 08/31/22 21:30 Ketorolac Tromethamine 30 Mg/Ml Vial IVPUSH 08/31/22 21:00 30 mg ONCE ONE Administration Lidocaine HCl 15 ml 08/31/22 20:57 08/31/22 21:42 Lidocaine Hcl Viscous 2 % 15 Ml Solution MUCOUS MEM 08/31/22 20:58 15 ml ONCE ONE Administration Discharge Plan Discharge Clinical Impression: Acute gastritis Patient Disposition: Home, Self-Care Instructions: Gastritis (ED) Additional Instructions: drink plenty of fluids avoid fried food/NSAID Protonix daily as prescribed follow-up with gastroenteritis Prescriptions: New pantoprazole [Protonix] 40 mg tablet,delayed release (DR/EC) 40 mg PO DAILY Qty: 30 2RF sucralfate 1 gram tablet 1 g PO BID Qty: 60 0RF No Action hyoscyamine sulfate 0.125 mg tablet 0.125 mg PO QID PRN (Reason: dyspepsia) Qty: 14 0RF omeprazole 40 mg capsule,delayed release(DR/EC) 40 mg PO DAILY Qty: 30 0RF acetaminophen 500 mg tablet 500 mg PO Q6H PRN (Reason: pain) Qty: 20 0RF buprenorphine-naloxone [Suboxone] 8-2 mg film 2 strip sublingual DAILY polyethylene glycol 3350 [Miralax] 17 gram/dose powder 17 g PO DAILY PRN (Reason: Constipation) docusate sodium [Dulcolax Stool Softener (dss)] 100 mg capsule 100 mg PO DAILY Referrals: Mayur Vizcarra MD [Physician] - 1 week Interventions: ED Discharge Assessment Last Done: 08/31/22 22:33 Discharge Date/Time: 08/31/22 22:34
[2022-08-31 20:51] LABS: Glucose, Whole Blood 108 mg/dL (60-115)
[2022-08-31 21:24] LABS: Lipase 43 U/L (8-78)
[2022-08-31] MEDS: 0.9 % Sodium Chloride 1,000 ML 999 ML IV (21:29)
[2022-08-31] MEDS: Magnesium Hydrox/Alum Hydrox 30 ML ORAL.SUSP PO (21:30)
[2022-08-31] MEDS: Famotidine/PF 20 MG/2 ML VIAL IVPUSH (21:30)
[2022-08-31] MEDS: Ketorolac Tromethamine 30 MG/ML VIAL IVPUSH (21:30)
[2022-08-31] MEDS: Lidocaine HCl Viscous 2 % 15 ML SOLUTION MUCOUS MEM (21:42)
--- NOTE | 2022-08-31 21:46 | PC.NURSE ---
Pt CAOx4. IV site started R lower arm 20 G per r. Anwer order. Medicated per Sep.
--- NOTE | 2022-08-31 22:16 | PC.NURSE ---
Per Dr. Chatterjee pt to start po challenge. Rn handed pt ice water to see how pt tolerates liquids.
--- NOTE | 2022-08-31 22:19 | PC.NURSE ---
Pt gab water well. Rn handed pt saltine crackers. Pt gab saltines crackers well also. Pt reported feeling better.
== END 2022-08-31 22:34 | disposition home or self-care (01) ==
PROVIDERS: Emergency Provider Internal Medicine; PCP Internal Medicine
DX: K29.00 Acute gastritis without bleeding (principal); R10.13 Epigastric pain; F11.20 Opioid dependence, uncomplicated; Z79.899 Other long term (current) drug therapy
CPT/HCPCS: 36415; 80053; 82947; 83690; 85025; 96374; 96375; 99284; 99285; J1885

== ENCOUNTER 2022-10-02 02:06 | Emergency (ER) | payer MEDICAID, SELFPAY ==
[2022-10-02 02:09] VITALS: BP 145/61; PULSE 96; RESP 18; TEMP 36.4; O2SAT 98; BMI 34.6
[2022-10-02 02:21] LABS: MANUAL DIFF FLAG NO
[2022-10-02 02:23] LABS: Basophils Percent Auto 0.2 % (0-2); Eosinophils Absolute Auto 0.2 X10*3/uL (0.0-0.4); Eosinophils Percent Auto 2.8 % (0-4); Hematocrit 42.7 % (42.0-52.0); Hemoglobin 14.6 g/dl (14.0-18.0); Lymphocytes Absolute Auto 2.7 X10*3/uL (1.2-4.9); Mean Corpuscular HGB Conc 34.2 g/dl (31.0-36.0); Mean Corpuscular Volume 87.9 fL (80.0-98.0); Mean Platelet Volume 8.6 fL (9.4-12.4); Monocytes Absolute Auto 0.5 X10*3/uL (0.1-1.2); Monocytes Percent Auto 8.4 % (2-11); Neutrophils Absolute Auto 2.6 x10*3/uL (2.0-8.3); Neutrophils Percent Auto 43.6 % (45-73); Platelet Count 251 X10*3/uL (160-400); Red Blood Count 4.86 X10*6/uL (4.60-5.80); Red Cell Distribution Width 12.1 % (11.0-16.0); White Blood Count 6.1 X10*3/uL (4.8-10.8)
[2022-10-02 02:38] LABS: Alanine Aminotransferase 39 U/L (0-40); Albumin Level 4.1 g/dL (3.5-5.0); Alkaline Phosphatase 77 U/L (39-117); Anion Gap 11 (12-20); Aspartate Amino Transferase 24 U/L (5-37); Bilirubin Direct 0.2 mg/dL (0.0-0.5); Bilirubin Total 0.5 mg/dL (0.0-1.0); Blood Urea Nitrogen 20 mg/dL (9-16); Calcium 9.1 mg/dL (8.4-10.2); Carbon Dioxide 31 mmol/L (22-29); Chloride 103 mmol/L (96-108); Creatinine Clr Calc Pharmacy 109.6; Estimated Glomerular Filt Rate > 60; Glucose Random 95 mg/dL (60-115); Lipase 28 U/L (8-78); Potassium 3.7 mmol/L (3.3-5.1); Sodium 141 mmol/L (135-145)
[2022-10-02 03:37] VITALS: BP 148/95; PULSE 77; RESP 20; TEMP 36.8; O2SAT 97
--- NOTE | 2022-10-02 03:58 | ED_ITS ---
HPI - Abdominal Pain General Chief Complaint: Abdominal Pain Stated Complaint: Abd pain/vomiting Time Seen by Provider: 10/02/22 03:58 Source: patient Mode of arrival: ambulatory Limitations: no limitations History of Present Illness HPI narrative: Patient with History of alcoholic gastritis comes here for upper abdominal pain started few hours prior to arrival patient says does not drink anymore after gastritis was diagnosed patient taking Prilosec no melena no vomiting felt nauseated no fever no abdominal distention Related Data Home Medications Medication Instructions Recorded Confirmed buprenorphine 8 mg-naloxone 2 mg 2 strip sublingual DAILY 12/03/21 12/17/21 sublingual film (Suboxone) polyethylene glycol 3350 17 17 g PO DAILY PRN Constipation 12/09/21 12/17/21 gram/dose oral powder (Miralax) docusate sodium 100 mg capsule 100 mg PO DAILY 12/17/21 12/17/21 (Dulcolax Stool Softener (docusate)) Previous Rx's Medication Instructions Recorded acetaminophen 500 mg tablet 500 mg PO Q6H PRN pain #20 tabs 06/18/22 hyoscyamine sulfate 0.125 mg tablet 0.125 mg PO QID PRN dyspepsia #14 06/18/22 tabs omeprazole 40 mg capsule,delayed 40 mg PO DAILY #30 caps 06/18/22 release pantoprazole 40 mg tablet,delayed 40 mg PO DAILY #30 tabs 08/31/22 release (Protonix) sucralfate 1 gram tablet 1 g PO BID #60 tabs 08/31/22 Allergies Allergy/AdvReac Type Severity Reaction Status Date / Time No Known Allergies Allergy Verified 12/17/21 12:09 Review of Systems Review of Systems Yes all other systems are reviewed and are negative PMFSH Past Medical History Medical History Horseshoe kidney Small bowel obstruction Surgical History Hx of kidney disease Social History Social History Household Members Other:: - 4 sons- (17-24) Alcohol intake: current Alcohol intake frequency: holidays/special occasions only Patient Tobacco Use Status: Never used Tobacco Advance Directives: No Advance Directives Information Provided: Yes Current occupational status: employed Current occupation: [employer] Physical Exam ED Vital Signs: Vital Signs - 24 hr 10/02/22 02:09 10/02/22 03:37 Temperature 97.6 F 98.3 F Pulse Rate 96 77 Respiratory Rate 18 20 Blood Pressure 145/61 H 148/95 H Pulse Oximetry 98 97 Oxygen Delivery Method Room Air Room Air BMI result Body Mass Index 34.6 Appearance: Alert. Oriented X3. No acute distress. Eyes: PERRLA, No Nystagmus ENT: Pharynx normal. Oral Mucosa moist Neck: Normal inspection. Neck supple. CVS: Normal heart rate and rhythm. Pulses normal. Respiratory: No respiratory distress. Equal air entry bilateral, no wheezing/rales/rhonchi Abdomen: Soft, tenderness in epigastric area, Bowel sounds are present, no mass palpable, no CVA tenderness Skin: Skin warm and dry. Normal skin color. Normal skin turgor. Extremities: No lower extremity edema. No calf tenderness Neuro: Oriented X 3. Medical Decision Making Lab Data 10/02/22 02:16 10/02/22 02:16 Labs: Lab Results 10/02/22 10/02/22 10/02/22 Range/Units 02:16 02:16 04:30 WBC 6.1 (4.8-10.8) X10*3/uL RBC 4.86 (4.60-5.80) X10*6/uL Hgb 14.6 (14.0-18.0) g/dl Hct 42.7 (42.0-52.0) % MCV 87.9 (80.0-98.0) fL MCH 30.0 (27.0-33.0) pg MCHC 34.2 (31.0-36.0) g/dl RDW 12.1 (11.0-16.0) % Plt Count 251 (160-400) X10*3/uL MPV 8.6 L (9.4-12.4) fL Immature Gran % (Auto) 0.0 (0.0-0.4) % Neut % (Auto) 43.6 L (45-73) % Lymph % (Auto) 45.0 H (20-40) % [place] % (Auto) 8.4 (2-11) % Eos % (Auto) 2.8 (0-4) % Baso % (Auto) 0.2 (0-2) % Lymph # (Auto) 2.7 (1.2-4.9) X10*3/uL [place] # (Auto) 0.5 (0.1-1.2) X10*3/uL Eos # (Auto) 0.2 (0.0-0.4) X10*3/uL Baso # (Auto) 0.0 (0.0-0.2) X10*3/uL Abs Immat Gran (auto) 0.00 (0.00-0.03) X10*3/uL Absolute Neuts (auto) 2.6 (2.0-8.3) x10*3/uL Absolute Nucleated RBC 0.000 (0.0-0.012) X10*3/uL Nucleated RBC % (auto) 0.0 (0.0-0.2) /100WBC Sodium 141 (135-145) mmol/L Potassium 3.7 (3.3-5.1) mmol/L Chloride 103 (96-108) mmol/L Carbon Dioxide 31 H (22-29) mmol/L Anion Gap 11 L (12-20) BUN 20 H (9-16) mg/dL Creatinine 0.99 (0.5-1.4) mg/dL Estim Creat Clear Calc 109.6 Estimated GFR > 60 Random Glucose 95 (60-115) mg/dL Calcium 9.1 (8.4-10.2) mg/dL Total Bilirubin 0.5 (0.0-1.0) mg/dL Direct Bilirubin 0.2 (0.0-0.5) mg/dL AST 24 (5-37) U/L ALT 39 (0-40) U/L Alkaline Phosphatase 77 (39-117) U/L Total Protein 7.0 (6.5-8.0) g/dL Albumin 4.1 (3.5-5.0) g/dL Lipase 28 (8-78) U/L Urine Color Yellow Urine Appearance Clear Urine pH 6.0 (5.0-9.0) Ur Specific [place] 1.025 (1.005-1.025) Urine Protein Negative (Neg-Trace) mg/dL Urine Glucose (UA) Negative (Negative) mg/dL Urine Ketones Trace (Negative) mg/dL Urine Blood Negative (Negative) Urine Nitrite Negative (Negative) Ur Leukocyte Esterase Negative (Negative) Medications Administered Discontinued Medications Generic Name Dose Route Start Last Admin Trade Name Freq PRN Reason Stop Dose Admin Al Hydroxide/Mg Hydroxide 30 ml 10/02/22 04:05 10/02/22 04:29 Magnesium Hydrox/Alum Hydrox 30 Ml Oral.Susp PO 10/02/22 04:06 30 ml ONCE ONE Administration Dicyclomine HCl 20 mg 10/02/22 04:05 10/02/22 04:27 Dicyclomine Hcl 10 Mg Capsule PO 10/02/22 04:06 20 mg ONCE ONE Administration Lidocaine HCl 15 ml 10/02/22 04:05 10/02/22 04:27 Lidocaine Hcl Viscous 2 % 15 Ml Solution MUCOUS MEM 10/02/22 04:06 15 ml ONCE ONE Administration Discharge Plan Discharge Clinical Impression: Chronic alcoholic gastritis Patient Disposition: Home, Self-Care Instructions: Gastritis (ED) Additional Instructions: Avoid alcohol use Continue Protonix an sucralfate Further up with Gastroenterology Prescriptions: No Action hyoscyamine sulfate 0.125 mg tablet 0.125 mg PO QID PRN (Reason: dyspepsia) Qty: 14 0RF omeprazole 40 mg capsule,delayed release(DR/EC) 40 mg PO DAILY Qty: 30 0RF acetaminophen 500 mg tablet 500 mg PO Q6H PRN (Reason: pain) Qty: 20 0RF buprenorphine-naloxone [Suboxone] 8-2 mg film 2 strip sublingual DAILY polyethylene glycol 3350 [Miralax] 17 gram/dose powder 17 g PO DAILY PRN (Reason: Constipation) pantoprazole [Protonix] 40 mg tablet,delayed release (DR/EC) 40 mg PO DAILY Qty: 30 2RF sucralfate 1 gram tablet 1 g PO BID Qty: 60 0RF docusate sodium [Dulcolax Stool Softener (dss)] 100 mg capsule 100 mg PO DAILY
--- NOTE | 2022-10-02 04:06 | PC.NURSE ---
pt c/o abdominal pain, restless, pacing, rates pain 10 will ctm
[2022-10-02] MEDS: Dicyclomine HCl 10 MG CAPSULE 20 MG PO (04:27)
[2022-10-02] MEDS: Lidocaine HCl Viscous 2 % 15 ML SOLUTION MUCOUS MEM (04:27)
[2022-10-02] MEDS: Magnesium Hydrox/Alum Hydrox 30 ML ORAL.SUSP PO (04:29)
[2022-10-02 04:38] LABS: Appearance Urine Clear; Color Urine Yellow; Glucose Urine UA Negative (Negative); Leukocyte Esterase Urine Negative (Negative); Nitrite Urine Negative (Negative); Specific Gravity - Urine 1.025 (1.005-1.025); Urine Blood Negative (Negative); Urine Ketones Trace mg/dL (Negative); Urine Protein Negative (Neg-Trace)
--- NOTE | 2022-10-02 05:39 | PC.NURSE ---
pt resting quietly while watching tv no apparent distress
--- NOTE | 2022-10-02 06:10 | PC.NURSE ---
Discharge instructions given/explained, ambulates safely/independently, all questions answered, no apparent distress
== END 2022-10-02 06:07 | disposition home or self-care (01) ==
PROVIDERS: Emergency Provider Internal Medicine
DX: F10.20 Alcohol dependence, uncomplicated (principal); K29.20 Alcoholic gastritis without bleeding; Y90.9 Presence of alcohol in blood, level not specified; F11.20 Opioid dependence, uncomplicated
CPT/HCPCS: 36415; 80053; 81003; 82248; 83690; 85025; 99283; 99284

== ENCOUNTER → 2022-10-07 12:58 | Outpatient (BNVA) | payer MEDICAID, SELFPAY | PROVIDERS: PCP Internal Medicine; Visit Provider Physician Assistant | DX: K21.9 Gastro-esophageal reflux disease without esophagitis (principal); R10.9 Unspecified abdominal pain | CPT/HCPCS: 99212 ==

== ENCOUNTER → 2022-10-31 08:14 | Outpatient (REF) | payer MEDICAID, SELFPAY ==
--- NOTE | ~2022-10-31 | NM_ITS ---
EXAMINATION: RADIONUCLIDE SOLID FOOD GASTRIC EMPTYING 4-HOUR STUDY CLINICAL INFORMATION: Gastroesophageal reflux disease without esophagitis. COMPARISON: No previous gastric emptying study is available for comparison. TECHNIQUE: A standard meal consisting of 4 oz of Egg Beaters brand tagged with 740 microcuries Tc-99m Sulfur Colloid, 8 oz water and 2 slices of toast with jelly was administered orally to the patient. Images were obtained using a dual head gamma camera in the anterior and posterior projections over of the stomach immediately post ingestion and at hourly intervals up to 3 hours post ingestion. Images were not obtained at 4 hours due to the minimal retention at 3 hours. The anterior and posterior counts at each time interval were averaged using the geometric mean and expressed as percentage of the immediate post ingestion counts. FINDINGS: There is good visualization of activity in the stomach immediately post ingestion. As the study progresses, there is good clearance of activity from the stomach and visualization of progressively increasing small bowel activity. By the end of the study, there is almost no retention noted in the stomach. Retention in the stomach at each time interval was: 1 hour 69% (normal 37%-90%) 2 hours 37% (normal 30%-60%) 3 hours 7% 4 hours (Not Obtained) (normal 0%-10%) NM/NM gastric emptying study IMPRESSION: Normal solid food gastric emptying study.
== END ==
LOC: HO.NUCMED 08:14
PROVIDERS: PCP Internal Medicine; Visit Provider Physician Assistant
DX: R10.9 Unspecified abdominal pain (principal); K21.9 Gastro-esophageal reflux disease without esophagitis
CPT/HCPCS: 78264; A9541

== ENCOUNTER 2022-12-12 03:53 | Emergency (ER) | payer MEDICAID, SELFPAY ==
[2022-12-12 04:06] VITALS: BP 140/89; PULSE 96; RESP 16; TEMP 36.1; O2SAT 97; BMI 33.2
[2022-12-12 04:39] LABS: Hematocrit 44.1 % (42.0-52.0); Hemoglobin 14.7 g/dl (14.0-18.0); Mean Corpuscular HGB Conc 33.3 g/dl (31.0-36.0); Mean Corpuscular Hemoglobin 29.5 pg (27.0-33.0); Mean Corpuscular Volume 88.6 fL (80.0-98.0); Mean Platelet Volume 8.3 fL (9.4-12.4); Platelet Count 257 X10*3/uL (160-400); Red Blood Count 4.98 X10*6/uL (4.60-5.80); Red Cell Distribution Width 13.1 % (11.0-16.0); White Blood Count 6.2 X10*3/uL (4.8-10.8)
[2022-12-12 05:00] LABS: Alanine Aminotransferase 36 U/L (0-40); Albumin Level 3.9 g/dL (3.5-5.0); Alkaline Phosphatase 68 U/L (39-117); Anion Gap 11 (12-20); Aspartate Amino Transferase 26 U/L (5-37); Bilirubin Total 1.7 mg/dL (0.0-1.0); Blood Urea Nitrogen 9 mg/dL (9-16); Calcium 9.3 mg/dL (8.4-10.2); Carbon Dioxide 30 mmol/L (22-29); Chloride 104 mmol/L (96-108); Creatinine Clr Calc Pharmacy 107.4; Estimated Glomerular Filt Rate > 60; Glucose Random 92 mg/dL (60-115); Lipase 15 U/L (8-78); Potassium 4.3 mmol/L (3.3-5.1); Sodium 141 mmol/L (135-145); Total Protein 6.9 g/dL (6.5-8.0)
[2022-12-12 06:08] VITALS: BP 118/69; PULSE 70; RESP 18; TEMP 36.7; O2SAT 96
--- NOTE | 2022-12-12 06:29 | PC.NURSE ---
pt a&o, denies any n/v/d, pt reports 4/10 pain, no sign of distress at this time. Pt awaiting to be seen. labs collected and sent. Pt awaiting to be seen
--- NOTE | 2022-12-12 06:51 | PC.NURSE ---
Pt awaiting to be seen.
--- NOTE | 2022-12-12 07:04 | ED_ITS ---
HPI - Abdominal Pain General Chief Complaint: Abdominal Pain Stated Complaint: abd pain Time Seen by Provider: 12/12/22 06:35 Source: patient Mode of arrival: ambulatory Limitations: no limitations History of Present Illness HPI narrative: 42 yo male with history of acid reflux, former ETOH use, HTN who presents to the ER for evaluation of upper abdominal pain, acute on chronic for the last 1 year. He has been seen in the ER for this several times. He states the pain is intermittent and located in his epigastric area. It is worse with certain foods. Its is cramping in nature. He has been on carafate and PPI but just ran out of his carafate. He has been trying to avoid spicy and acidic foods. The pain this time came about 1 hour after eating 2 apples. No N/V/D or constipation. He recently saw GI in October and had a normal gastric emptying study. MD elicited complaint: abdominal pain Pertinent past history: gastritis Onset (ago): year(s) Pain Consistency: intermittent Location: epigastric Severity: moderate Quality: cramping and stabbing Radiation: none Migration to: no migration Exacerbating factors: eating Relieving factors: nothing Context: history of similar episodes Associated symptoms: denies other symptoms Related Data Home Medications Medication Instructions Recorded Confirmed buprenorphine 8 mg-naloxone 2 mg 2 strip sublingual DAILY 12/03/21 12/17/21 sublingual film (Suboxone) Previous Rx's Medication Instructions Recorded acetaminophen 500 mg tablet 500 mg PO Q6H PRN pain #20 tabs 06/18/22 pantoprazole 40 mg tablet,delayed 40 mg PO DAILY #30 tabs 08/31/22 release (Protonix) sucralfate 1 gram tablet 1 g PO QIDACHS #60 tabs 11/18/22 sucralfate 1 gram tablet (Carafate) 1 g PO QIDACHS #90 tabs 12/12/22 Allergies Allergy/AdvReac Type Severity Reaction Status Date / Time No Known Allergies Allergy Verified 12/17/21 12:09 Review of Systems Review of Systems Yes all other systems are reviewed and are negative [facility] Past Medical History Medical History Horseshoe kidney Small bowel obstruction Surgical History Hx of kidney disease Social History Social History Household Members Other:: - 4 sons- (17-24) Alcohol intake: current Alcohol intake frequency: holidays/special occasions only Patient Tobacco Use Status: Never used Tobacco Smoked in Last 30 Days: No Advance Directives: No Advance Directives Information Provided: No Current occupational status: employed Current occupation: [employer] Physical Exam ED Vital Signs: Vital Signs - 24 hr 12/12/22 04:06 12/12/22 06:08 Temperature 97.0 F 98.0 F Pulse Rate 96 70 Respiratory Rate 16 18 Blood Pressure 140/89 H 118/69 Pulse Oximetry 97 96 Oxygen Delivery Method Room Air Room Air BMI result Body Mass Index 33.2 Appearance: Alert. Oriented X3. No acute distress. Head: normocephalic, atraumatic. Eyes: Pupils equal, round and reactive to light. ENT: Pharynx normal. No tonsillar swelling or exudate. Neck: Normal inspection. Neck supple. CVS: Normal heart rate and rhythm. Pulses normal. Respiratory: No respiratory distress. Breath sounds normal. Abdomen: Soft with mild epigastric tenderness, no rebound or guarding, negative guillory's sign, normal active +BS x4 Skin: Skin warm and dry. Normal skin color. Normal skin turgor. No rashes. Extremities: No lower extremity edema. No joint swelling. Neuro/psych: Oriented X 3. No motor deficit. No sensory deficit. CN II-XII intact. Normal speech and cognition. Medical Decision Making Medical Decision Making [facility] Narrative: 42 yo male presenting to the ER for evaluation of acute on chronic epigastric abdominal pain, worse with certain food. Lab work unremarkable aside from Tbili 1.7 which it has been in the past without any other concerning LFT findings. normal lipase. exam is benign. Minimal pain at this time. Given GI cocktail in the ER. We discussed importance of outpatient follow up with GI - he is due to EGD. We also discussed importance of dietary modifications and keeping a food diary. Refilled his carafate and will continue PPI. stable for d/c home. Differential Diagnosis Differential Diagnoses: The differential diagnosis associated with the presentation includes gastritis, PUD, GERD, h pylori, pancreatitis, biliary colic Lab Data [facility] Lab Attestation statement: I reviewed the patient's lab results. 12/12/22 04:35 12/12/22 04:35 Labs: Lab Results 12/12/22 12/12/22 Range/Units 04:35 04:35 WBC 6.2 (4.8-10.8) X10*3/uL RBC 4.98 (4.60-5.80) X10*6/uL Hgb 14.7 (14.0-18.0) g/dl Hct 44.1 (42.0-52.0) % MCV 88.6 (80.0-98.0) fL MCH 29.5 (27.0-33.0) pg MCHC 33.3 (31.0-36.0) g/dl RDW 13.1 (11.0-16.0) % Plt Count 257 (160-400) X10*3/uL MPV 8.3 L (9.4-12.4) fL Absolute Nucleated RBC 0.000 (0.0-0.012) X10*3/uL Nucleated RBC % (auto) 0.0 (0.0-0.2) /100WBC Sodium 141 (135-145) mmol/L Potassium 4.3 (3.3-5.1) mmol/L Chloride 104 (96-108) mmol/L Carbon Dioxide 30 H (22-29) mmol/L Anion Gap 11 L (12-20) BUN 9 (9-16) mg/dL Creatinine 0.99 (0.5-1.4) mg/dL Estim Creat Clear Calc 107.4 Estimated GFR > 60 Random Glucose 92 (60-115) mg/dL Calcium 9.3 (8.4-10.2) mg/dL Total Bilirubin 1.7 H (0.0-1.0) mg/dL AST 26 (5-37) U/L ALT 36 (0-40) U/L Alkaline Phosphatase 68 (39-117) U/L Total Protein 6.9 (6.5-8.0) g/dL Albumin 3.9 (3.5-5.0) g/dL Lipase 15 (8-78) U/L External Record Review External record reviewed: Office record, Outpatient record, Prior outpatient labs and Prior outpatient radiology Tests considered The following testing was considered but not selected: CT scan considered however he has had 4 CT scans of his abd/pelvis in the last 1 year and abd is soft Prescription Management I considered prescription management with: Pain Medication Chronic Conditions Patient?s care impacted by: Hypertension and Other (GERD) Medications Administered Discontinued Medications Generic Name Dose Route Start Last Admin Trade Name Freq PRN Reason Stop Dose Admin Al Hydroxide/Mg Hydroxide 30 ml 12/12/22 07:03 12/12/22 07:15 Magnesium Hydrox/Alum Hydrox 30 Ml Oral.Susp PO 12/12/22 07:04 30 ml ONCE ONE Administration Belladonna Alkaloids/Phenobarbital 10 ml 12/12/22 07:03 12/12/22 07:15 Phenobarb/Hyoscy/Atropine/Scop 10 Ml Elixir PO 12/12/22 07:04 10 ml ONCE ONE Administration Lidocaine HCl 15 ml 12/12/22 07:03 12/12/22 07:15 Lidocaine Hcl Viscous 2 % 15 Ml Solution MUCOUS MEM 12/12/22 07:04 15 ml ONCE ONE Administration Critical Care Time Critical Care Time Critical Care Time: No Discharge Plan Discharge Clinical Impression: Abdominal pain Patient Disposition: Home, Self-Care Instructions: Abdominal Pain (ED) Additional Instructions: Your lab workup was unremarkable You had a normal gastic emptying study done in October Your GI provider would like to arrange you to have a upper endoscopy to get a better idea the cause of your pain In the meantime, continue your pantoprazole 40 mg each morning and sucralfate before meals and at bedtime Keep a food diary to keep track of what food irritate your stomach and cause pain Follow up with your GI provider - call for an appointment, tell them you were recently seen in the ER If you develop new or worsening symptoms call 911 or come back to the ER for further evaluation. Prescriptions: New sucralfate [Carafate] 1 gram tablet 1 g PO QIDACHS Qty: 90 0RF No Action sucralfate 1 gram tablet 1 g PO QIDACHS Qty: 60 2RF acetaminophen 500 mg tablet 500 mg PO Q6H PRN (Reason: pain) Qty: 20 0RF buprenorphine-naloxone [Suboxone] 8-2 mg film 2 strip sublingual DAILY pantoprazole [Protonix] 40 mg tablet,delayed release (DR/EC) 40 mg PO DAILY Qty: 30 2RF [place] [facility] [place]] (upper abd pain, due to EGD) Interventions: ED Discharge Assessment Last Done: 12/12/22 07:36 Discharge Date/Time: 12/12/22 07:37
[2022-12-12] MEDS: PHENobarb/Hyoscy/Atropine/Scop 10 ML ELIXIR PO (07:15)
[2022-12-12] MEDS: Magnesium Hydrox/Alum Hydrox 30 ML ORAL.SUSP PO (07:15)
[2022-12-12] MEDS: Lidocaine HCl Viscous 2 % 15 ML SOLUTION MUCOUS MEM (07:15)
== END 2022-12-12 07:37 | disposition home or self-care (01) ==
PROVIDERS: Emergency Provider Student in an Organized Health Care Education/Training Program; PCP Internal Medicine
DX: R10.10 Upper abdominal pain, unspecified (principal)
CPT/HCPCS: 36415; 80053; 83690; 85027; 99283; 99284

== ENCOUNTER → 2022-12-30 13:08 | Outpatient (BNVA) | payer MEDICAID, SELFPAY | PROVIDERS: PCP Internal Medicine; Visit Provider Physician Assistant | DX: R10.13 Epigastric pain (principal) | CPT/HCPCS: 99212 ==

== ENCOUNTER 2022-12-31 13:25 | Day surgery (SDC) | payer MEDICAID, SELFPAY ==
[2022-12-31 13:41] VITALS: BMI 33.0
[2022-12-31 13:47] VITALS: BP 146/98; PULSE 72; RESP 18; TEMP 36.9; O2SAT 99
--- NOTE | 2022-12-31 14:37 | P.CONAN_ITS ---
HPI - Anesthesia Eval Consult details Narrative: 42 M for EGD PMFSH Active Problems Active Problems: All Active Problems (Updated 12/12/22 @ 07:04 by MINDY Talavera) Acid reflux (Acute) Alcohol use (Acute) Abdominal pain (Acute) Past Medical History Medical History Horseshoe kidney Small bowel obstruction Functional capacity: independent ambulation Family History Family history of problems with anesthesia: No Surgical History Surgical History Hx of kidney disease Social History Social History Household Members Other:: - 4 sons- (17-24) Alcohol intake: current Alcohol intake frequency: former alcohol drinker Patient Tobacco Use Status: Never used Tobacco Current occupational status: employed Current occupation: [employer] Meds Allergies Allergy/AdvReac Type Severity Reaction Status Date / Time No Known Allergies Allergy Verified 12/30/22 13:12 Active Medications: Current Medications Lactated Ringer's (Lr) 1,000 mls @ 50 mls/hr IVCONT .Q20H BRENDEN Home Medications Medication Instructions Recorded Confirmed Last Taken Type buprenorphine 8 mg-naloxone 2 mg 2 strip sublingual DAILY 12/03/21 12/31/22 12/31/22 History sublingual film (Suboxone) Exam Exam Date and Time: December 31, 2022 143 Height,Weight and Vital Signs: Height 5 ft 7 in Weight 95.708 kg Last Vital Signs Temp 98.4 F 12/31/22 13:47 Pulse 72 12/31/22 13:47 Resp 18 12/31/22 13:47 BP 146/98 H 12/31/22 13:47 Pulse Ox 99 12/31/22 13:47 O2 Del Method Room Air 12/31/22 13:47 Airway Mallampati Class: IV Neck ROM: Full Loose/Missing/Broken Teeth: Yes Assessment and Plan Assessment Anesthesia Assessment: Anesthesia Plan Discussed and Chart Reviewed Final Anesthetic Review Family History of Problems with Anesthesia: No NPO: Yes ASA Class: II Final Preanesthetic Review: Meds/Allgs Chart Reviewed, Consent Obtained/Reviewed and Anes Risks/Benef Reviewed Patient Risk: Intermediate Procedure Risk: Intermediate Anesthetic Plan Anesthetic Plan: MAC: and Agree w/ Assess. and Plan Disposition: Standard PACU
--- NOTE | 2022-12-31 14:44 | MHC.SHP ---
Pre-Procedural Eval Section A Date of Service: 12/31/22 Section B Chief Complaint: Epigastric pain Relevant Family History (Specify if Yes): No Relevant Social History: None Present Medications: see Short Stay Collaborative assessment Medical History: Significant History (Horseshoe kidney Small bowel obstruction) History of Previous Operations: No relevant previous surgery Allergies: Allergies Allergy/AdvReac Type Severity Reaction Status Date / Time No Known Allergies Allergy Verified 12/30/22 13:12 Review of Systems Sugical H&P ROS: Negative: Constitution, Cardiovascular, Respiratory, Neurological, Psychiatric, Hem-Onc, Allergic/Immunologic, Gastrointestinal, Genitourinary, Musculoskeletal, Integumentary, Endocrine and Eyes/Ears/Nose/Throat Exam Surgical H&P Exam: Normal: HEENT, Normal: Heart, Normal: Lungs, Normal: Extremities, Normal: Abdomen, Normal: Skin and Normal: Neurological Plan Diagnosis/Plan: Unchanged I have reviewed the history and physical and performed a pertinent physical examination on my patient. No changes have occurred unless specified. Time Spent With Patient Time: Total time managing care of this patient today ____ minutes.
--- NOTE | 2022-12-31 15:20 | W.PM.OPN ---
Operative Note Operative Note Date of Service: 12/31/22 Narrative: Procedure Description: EGD Indication: epigastric pain Anesthesia: MAC FLEXIBLE TRANSORAL UPPER GASTROINTESTINAL ENDOSCOPY UPPER ENDOSCOPY Consent: Indications for the procedure and potential complications of bleeding, perforation, reaction to medications and missed diagnosis were discussed with the patient and informed consent was obtained. Instrument: Olympus GIF H 190 J mid size upper endoscope Monitoring: Vital signs and clinical assessment, continuous EKG monitoring, Pulse oximetry, Carbon Dioxide monitoring and blood pressure monitoring were done throughout the procedure. Procedure: The patient was placed in the left lateral decubitis position and pre-procedure medications were administered and a bite block was placed. The endoscope was inserted into the mouth and advanced under direct vision to the third part of duodenum. A careful inspection was made as the upper endoscope was withdrawn including a retroflexed examination of the proximal stomach; Findings and interventions are described below. Findings: Larynx:normal Esophagus: GE junction at 36 cm, diaphragm hiatus at 38 cm, consistent with 2 cm sliding hiatal hernia, mild esophagitis at GEJ, bx taken as well as from distal esophagus. schatzki ring noted Stomach: Patchy gastric erythema. Biopsies were obtained. Grade 2 flap valve on retroflexed examination of the cardia. Duodenum: Normal bulb and descending duodenum, bx taken Intervention: Biopsies as noted above Impression/Findings: gastritis schatzki ring hiatal hernia esophagitis PLAN: cont with PPI if H pylori pos then treat if ongoing sx then recommend Us to r/o gallstones as sx worse with fatty foods
[2022-12-31 15:50] VITALS: BP 113/70; PULSE 86; RESP 16; TEMP 36.7; O2SAT 96
[2022-12-31 16:05] VITALS: BP 113/70; PULSE 69; RESP 16; O2SAT 96
[2022-12-31 16:20] VITALS: BP 125/88; PULSE 72; RESP 16; TEMP 36.1; O2SAT 99
== END 2022-12-31 16:25 | disposition home or self-care (01) ==
PROVIDERS: PCP Internal Medicine; Visit Provider Internal Medicine Gastroenterology
PROC: 0DJ08ZZ Inspection of Upper Intestinal Tract, Via Natural or Artificial Opening Endoscopic (ICD-10-PCS; CPT 43235; principal; 2022-12-31 14:40)
DX: K29.50 Unspecified chronic gastritis without bleeding (principal); K22.2 Esophageal obstruction; K20.80 Other esophagitis without bleeding; K44.9 Diaphragmatic hernia without obstruction or gangrene; Q63.1 Lobulated, fused and horseshoe kidney; Z79.899 Other long term (current) drug therapy
CPT/HCPCS: 43239; 88305; 88342

== ENCOUNTER → 2023-01-22 14:55 | Outpatient (BNVA) | payer MEDICAID, SELFPAY | PROVIDERS: PCP Internal Medicine; Visit Provider Physician Assistant | DX: K21.9 Gastro-esophageal reflux disease without esophagitis (principal) | CPT/HCPCS: 99212 ==

== ENCOUNTER 2023-07-15 19:37 | Emergency (ER) | payer MEDICAID, SELFPAY ==
[2023-07-15 19:59] VITALS: BP 138/100; PULSE 95; RESP 18; TEMP 36.8; O2SAT 96; BMI 33.2
--- NOTE | 2023-07-15 20:33 | ED.GENADULT ---
HPI - General Adult General Chief complaint: Animal Bite Stated complaint: Dog bite rt arm/buttocks Related Data Home Medications ?Medication ?Instructions ?Recorded ?Confirmed buprenorphine 8 mg-naloxone 2 mg 1 strip sublingual BID 12/03/21 07/18/23 sublingual film (Suboxone) Previous Rx's ?Medication ?Instructions ?Recorded levofloxacin 500 mg tablet 500 mg PO DAILY 7 days #7 tabs 07/19/23 metronidazole 500 mg tablet 500 mg PO BID 7 days #14 tabs 07/19/23 pantoprazole 40 mg tablet,delayed 40 mg PO DAILY #30 tabs 08/14/23 release Allergies Allergy/AdvReac Type Severity Reaction Status Date / Time No Known Allergies Allergy Verified 10/18/23 06:18 [facility] Past Medical History Medical History Horseshoe kidney Small bowel obstruction Surgical History History of esophagogastroduodenoscopy (EGD) Hx of kidney disease Social History Social History Household Members: None Household Members Other:: - 4 sons- (17-24) Unable to assess alcohol history related to: Unknown Alcohol intake: former Patient Tobacco Use Status: Never used Tobacco Smoked in Last 30 Days: No Second Hand Smoke Exposure: No Use of substances other than those prescribed or required for medical reasons: No Advance Directives: No Advance Directives Information Provided: Yes Advance Directives Date on File: 07/18/23 Current occupational status: employed Current occupation: [employer] Physical Exam ED Vital Signs: Vital Signs - 24 hr 07/15/23 19:59 Temperature 98.2 F Pulse Rate 95 Respiratory Rate 18 Blood Pressure 138/100 H Pulse Oximetry 96 Oxygen Delivery Method Room Air BMI result Body Mass Index 33.2 Course Course Course Narrative: RME- 43-year-old male presents for evaluation of a dog bite. He was bit on the right forearm and right buttocks by his own dog. His dog is up-to-date on rabies vaccines.. He has multiple puncture wounds to the right forearm. Discharge Plan Discharge Clinical Impression: Dog bite Patient Disposition: Left W/O Completing Treatment Prescriptions: No Action pantoprazole 40 mg tablet,delayed release (DR/EC) 40 mg PO DAILY Qty: 30 6RF buprenorphine-naloxone [Suboxone] 8-2 mg film 1 strip sublingual BID levofloxacin 500 mg tablet 500 mg PO DAILY 7 Days Qty: 7 0RF metronidazole 500 mg tablet 500 mg PO BID 7 Days Qty: 14 0RF Interventions: LWBS Worksheet Last Done: 07/15/23 22:20 Discharge Date/Time: 07/15/23 22:21
== END 2023-07-15 22:21 | disposition left against medical advice (07) ==
PROVIDERS: Emergency Provider Emergency Medicine
DX: S51.851A Open bite of right forearm, initial encounter (principal); S31.815A Open bite of right buttock, initial encounter; W54.0XXA Bitten by dog, initial encounter; Y93.9 Activity, unspecified; Y92.9 Unspecified place or not applicable; Y99.9 Unspecified external cause status
CPT/HCPCS: 99281

== ENCOUNTER 2023-07-16 08:25 | Emergency (ER) | payer MEDICAID, SELFPAY ==
[2023-07-16 08:34] VITALS: BP 149/97; PULSE 66; RESP 18; TEMP 36.6; O2SAT 99; BMI 34.2
--- NOTE | 2023-07-16 08:59 | ED.GENADULT ---
HPI - General Adult General Chief complaint: Wound/Laceration Stated complaint: Dog Bite R Arm 07/15/23 Time Seen by Provider: 07/16/23 08:58 Source: patient Mode of arrival: ambulatory Limitations: no limitations History of Present Illness HPI narrative: Patient is a 43 year old assigned male at with a history of GERD presenting to the emergency department today with right forearm pain. Patient states that last night he was bit by his dog who is up to date on his shots. Patient states that he tried to be seen yesterday but he couldn't stay to be evaluated. Patient denies any dizziness, lightheadedness, abdominal pain, nausea, vomiting, fever, chills, blurry vision, double vision, loss of vision, chest pain, difficulty breathing, shortness of breath, back pain, night sweats, pain with urination, increased urinary frequency, increased urinary urgency, blood in his urine or stool, syncope or a near syncopal episode, bowel incontinence, bladder incontinence, bowel retention, bladder retention, or any other complaints at this time. Onset (ago): day(s) (1) Location: right and upper extremity Radiation: non-radiation Severity: mild Severity scale (1-10): 3 Quality: aching and dull Pain Consistency: constant Relieving factors: none Exacerbating factors: none Associated symptoms: denies other symptoms Treatments prior to arrival: none Related Data Home Medications Medication Instructions Recorded Confirmed buprenorphine 8 mg-naloxone 2 mg 2 strip sublingual DAILY 12/03/21 01/22/23 sublingual film (Suboxone) Previous Rx's Medication Instructions Recorded acetaminophen 500 mg tablet 500 mg PO Q6H PRN pain #20 tabs 06/18/22 sucralfate 1 gram tablet (Carafate) 1 g PO QIDACHS #90 tabs 12/12/22 pantoprazole 40 mg tablet,delayed 40 mg PO DAILY 30 days #30 tabs 01/22/23 release (Protonix) amoxicillin 875 mg-potassium 1 tab PO BID 7 days #14 tabs 07/16/23 clavulanate 125 mg tablet Allergies Allergy/AdvReac Type Severity Reaction Status Date / Time No Known Allergies Allergy Verified 07/16/23 08:34 Review of Systems Constitutional: Constitutional: Reports no additional constitutional complaints, Denies chills, Denies fever(s) and Denies night sweats Eyes: Eyes: Reports no additional eye complaints, Denies blurry vision, Denies change in vision, Denies diplopia, Denies eye discharge, Denies loss of vision and Denies eye pain ENT: Denies dizziness Cardiovascular: Cardiovascular: Reports no additional cardiovascular complaints, Denies chest pain, Denies lightheadedness, Denies Loss of Consciousness and Denies dyspnea Respiratory: Respiratory: Reports no additional respiratory complaints and Denies dyspnea Gastrointestinal: Gastrointestinal: Reports no additional gastrointestinal complaints, Denies abdominal pain, Denies melena, Denies hematochezia, Denies change in bowel habits and Denies change in stool character Genitourinary: Genitourinary: Reports no additional male genitourinary complaints, Denies hematuria, Denies oliguria, Denies difficulty urinating, Denies dysuria, Denies urinary frequency, Denies urinary hesitancy, Denies urinary incontinence and Denies urinary urgency Musculoskeletal: Musculoskeletal: Reports no additional musculoskeletal complaints, Denies numbness and Denies tingling Comments: right arm pain Neurologic: Denies dizziness, Denies loss of vision, Denies numbness and Denies tingling Psychiatric: Psychiatric: Reports no additional psychiatric complaints Endocrine: Endocrine: Reports no additional endocrine complaints Hematologic/Lymphatic: Hematologic/Lymphatic: Reports no additional hematologic/lymphatic complaints Allergic/Immunologic: Allergic/Immunologic: Reports no additional allergic/immunologic complaints [facility] Past Medical History Attestation statement: The following information was validated with the patient. Source: old records reviewed and nursing notes reviewed Medical History Horseshoe kidney Small bowel obstruction Surgical History History of esophagogastroduodenoscopy (EGD) Hx of kidney disease Social History Social History Household Members Other:: - 4 sons- (17-24) Alcohol intake: current Alcohol intake frequency: former alcohol drinker Patient Tobacco Use Status: Never used Tobacco Advance Directives: No Advance Directives Information Provided: No Current occupational status: employed Current occupation: [employer] Physical Exam ED Vital Signs: Vital Signs - 24 hr 07/16/23 08:34 Temperature 98 F Pulse Rate 66 Respiratory Rate 18 Blood Pressure 149/97 H Pulse Oximetry 99 Oxygen Delivery Method Room Air BMI result Body Mass Index 34.2 Const General: cooperative, no acute distress, alert and awake Nutritional Appearance: well nourished Orientation/consciousness: patient oriented x3 Limitations: no limitations HENMT Head: Yes normal to inspection and Yes atraumatic Ears: hearing grossly normal bilaterally and external ears normal General nose exam: Normal external nose present, no nasal discharge noted and no epistaxis Face and sinus: Yes normal facial exam, No abrasion and No laceration Mouth: Normal oral and palatal mucosa present, no drooling and no muffled voice Eyes General: appearance normal, both eyes and all related structures Periorbital: periorbital findings normal Eyelids: Yes eyelids normal Conjunctivae: conjunctivae normal Pupils: Equal, round and reactive pupils present EOM: EOMs intact bilaterally Neck Neck: Yes normal visual inspection, Yes full ROM and Yes no lymphadenopathy Chest Chest palpation & inspection: normal inspection of the chest Resp Effort & Inspection: normal respiratory effort and able to speak in complete sentences GI Inspection: Yes normal to inspection Neuro General: patient oriented x3 and moves all extremities Cranial nerves: Yes Equal, round and reactive pupils present Cognition (Neuro): normal cognition Motor exam (neuro): 5/5 motor strength present throughout Sensory Exam: Normal double simultaneous stimulation for sensation Coordination: [id number] test normal Extrem Other: 2 small puncture wounds to the dorsal right forearm, no active bleeding General: Yes full ROM and Yes capillary refill normal Psych Appearance: grossly normal Mental Status: mental status grossly normal Affect: normal affect Attitude: cooperative Thought process: Normal thought process present Thought content: Normal thought content present Insight: Good insight present (Psych) Medications Administered Discontinued Medications Generic Name Dose Route Start Last Admin Trade Name Freq PRN Reason Stop Dose Admin Amoxicillin/Clavulanate Potassium 875 mg 07/16/23 09:22 07/16/23 09:40 Amoxicillin/Potassium Clav 875 Mg Tablet PO 07/16/23 09:23 875 mg ONCE ONE Administration Medical Decision Making Medical Decision Making MDM Narrative: Patient is a 43 year old assigned male at with a history of GERD presenting to the emergency department today with a dog bite to the right arm. Patient's physical exam showed 2 small, superficial, puncture wounds to the dorsal right forearm. No active bleeding. Patient's forearm wounds were slightly gaping however, after lengthy discussion with the patient and shared decision making, it was decided by us both not to suture the wounds closed. Patient's wounds were thoroughly cleaned. I explained my physical exam findings to the patient. I answered all questions asked by the patient. I stressed the importance of the patient taking his medication as prescribed. I stressed the importance of the patient following up with his primary care provider. I stressed the importance of the patient returning to the emergency department immediately if his symptoms were to worsen or if he were to develop any dizziness, shortness of breath, difficulty breathing, chest pain, blurry vision, loss of vision, nausea, vomiting, abdominal pain, fever, chills, back pain, or any other complaints. Patient verbalized agreement and understanding with this treatment plan and discharge. Differential Diagnosis Differential Diagnoses: The differential diagnosis associated with the presentation includes Right forearm puncture wounds Dog bite Prescription Management I considered prescription management with: Antibiotic (patient prescribed an antibiotic) Discharge Plan Discharge Clinical Impression: Dog bite Patient Disposition: Home, Self-Care Instructions: Animal Bite (ED) Additional Instructions: Do NOT soak the affected area until it is completely healed. Perform daily wound checks and dressing changes. Take your antibiotic as prescribed. Follow up with your primary care provider. Return to the emergency department immediately if your symptoms worsen or if you develop any dizziness, shortness of breath, difficulty breathing, chest pain, blurry vision, loss of vision, nausea, vomiting, abdominal pain, fever, chills, back pain, or any other complaints. Prescriptions: New amoxicillin-pot clavulanate 875-125 mg tablet 1 tab PO BID 7 Days Qty: 14 0RF No Action acetaminophen 500 mg tablet 500 mg PO Q6H PRN (Reason: pain) Qty: 20 0RF buprenorphine-naloxone [Suboxone] 8-2 mg film 2 strip sublingual DAILY sucralfate [Carafate] 1 gram tablet 1 g PO QIDACHS Qty: 90 0RF pantoprazole [Protonix] 40 mg tablet,delayed release (DR/EC) 40 mg PO DAILY 30 Days Qty: 30 6RF Referrals: Darius Celis MD [Primary Care Provider] - Stand Alone Forms: Work/School Release Interventions: ED Discharge Assessment Last Done: 07/16/23 10:02 Discharge Date/Time: 07/16/23 09:55 Print Language: Syriac
[2023-07-16] MEDS: Amoxicillin/Potassium Clav 875 MG TABLET PO (09:40)
== END 2023-07-16 09:55 | disposition home or self-care (01) ==
PROVIDERS: Emergency Provider Emergency Medicine Emergency Medical Services; PCP Internal Medicine
DX: S41.151A Open bite of right upper arm, initial encounter (principal); W54.0XXA Bitten by dog, initial encounter; Y93.9 Activity, unspecified; Y92.9 Unspecified place or not applicable; Y99.9 Unspecified external cause status; Z79.899 Other long term (current) drug therapy
CPT/HCPCS: 99282; 99283

== ENCOUNTER 2023-07-18 12:09 | Inpatient (IN) | payer MEDICAID, SELFPAY ==
[2023-07-18 12:17] VITALS: BP 141/101; PULSE 86; RESP 16; TEMP 36.7; O2SAT 99; BMI 33.2
--- NOTE | 2023-07-18 12:23 | ED.GENADULT ---
HPI - General Adult General Chief complaint: Animal Bite Stated complaint: recently seen for bug bite, infected? Time Seen by Provider: 07/18/23 12:23 Source: patient Mode of arrival: ambulatory Limitations: no limitations History of Present Illness HPI narrative: Patient is a 43 year old assigned male at with a history of GERD and alcohol abuse presenting to the emergency department today with a worsening right forearm injury. 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 Patient states that the area has become much more painful, swollen, and red. Patient denies any dizziness, lightheadedness, abdominal pain, nausea, vomiting, fever, chills, blurry vision, double vision, loss of vision, chest pain, difficulty breathing, shortness of breath, back pain, night sweats, pain with urination, increased urinary frequency, increased urinary urgency, blood in his urine or stool, syncope or a near syncopal episode, bowel incontinence, bladder incontinence, bowel retention, bladder retention, or any other complaints at this time. Onset (ago): day(s) Location: right and upper extremity Radiation: non-radiation Severity: mild Severity scale (1-10): 3 Quality: aching and dull Pain Consistency: constant Relieving factors: none Exacerbating factors: none Associated symptoms: denies other symptoms Treatments prior to arrival: other (antibiotic) Related Data Home Medications Medication Instructions Recorded Confirmed buprenorphine 8 mg-naloxone 2 mg 2 strip sublingual DAILY 12/03/21 07/18/23 sublingual film (Suboxone) Previous Rx's Medication Instructions Recorded pantoprazole 40 mg tablet,delayed 40 mg PO DAILY 30 days #30 tabs 01/22/23 release (Protonix) amoxicillin 875 mg-potassium 1 tab PO BID 7 days #14 tabs 07/16/23 clavulanate 125 mg tablet Allergies Allergy/AdvReac Type Severity Reaction Status Date / Time No Known Allergies Allergy Verified 07/18/23 12:17 Review of Systems Constitutional: Constitutional: Reports no additional constitutional complaints, Denies chills, Denies fever(s) and Denies night sweats Eyes: Eyes: Reports no additional eye complaints, Denies blurry vision, Denies change in vision, Denies diplopia, Denies eye discharge, Denies loss of vision and Denies eye pain ENT: Denies dizziness Cardiovascular: Cardiovascular: Reports no additional cardiovascular complaints, Denies chest pain, Denies lightheadedness, Denies Loss of Consciousness and Denies dyspnea Respiratory: Respiratory: Reports no additional respiratory complaints and Denies dyspnea Gastrointestinal: Gastrointestinal: Reports no additional gastrointestinal complaints, Denies abdominal pain, Denies melena, Denies hematochezia, Denies change in bowel habits and Denies change in stool character Genitourinary: Genitourinary: Reports no additional male genitourinary complaints, Denies hematuria, Denies oliguria, Denies difficulty urinating, Denies dysuria, Denies urinary frequency, Denies urinary hesitancy, Denies urinary incontinence and Denies urinary urgency Musculoskeletal: Musculoskeletal: Reports no additional musculoskeletal complaints, Denies numbness and Denies tingling Comments: right forearm dog bite, redness, swelling Neurologic: Denies dizziness, Denies loss of vision, Denies numbness and Denies tingling Psychiatric: Psychiatric: Reports no additional psychiatric complaints Endocrine: Endocrine: Reports no additional endocrine complaints Hematologic/Lymphatic: Hematologic/Lymphatic: Reports no additional hematologic/lymphatic complaints Allergic/Immunologic: Allergic/Immunologic: Reports no additional allergic/immunologic complaints [facility] Past Medical History Attestation statement: The following information was validated with the patient. Source: old records reviewed and nursing notes reviewed Medical History Horseshoe kidney Small bowel obstruction Surgical History History of esophagogastroduodenoscopy (EGD) Hx of kidney disease Social History Social History Household Members Other:: - 4 sons- (17-24) Alcohol intake: former Patient Tobacco Use Status: Never used Tobacco Smoked in Last 30 Days: No Advance Directives: Yes Advance Directives Information Provided: Yes Advance Directives on File: No Current occupational status: employed Current occupation: [employer] Physical Exam ED Vital Signs: Vital Signs - 24 hr 07/18/23 12:17 Temperature 98.0 F Pulse Rate 86 Respiratory Rate 16 Blood Pressure 141/101 H Pulse Oximetry 99 BMI result Body Mass Index 33.2 Const General: cooperative, no acute distress, alert and awake Nutritional Appearance: well nourished Orientation/consciousness: patient oriented x3 Limitations: no limitations HENMT Head: Yes normal to inspection and Yes atraumatic Ears: hearing grossly normal bilaterally and external ears normal General nose exam: Normal external nose present, no nasal discharge noted and no epistaxis Face and sinus: Yes normal facial exam, No abrasion and No laceration Mouth: Normal oral and palatal mucosa present, no drooling and no muffled voice Eyes General: appearance normal, both eyes and all related structures Periorbital: periorbital findings normal Eyelids: Yes eyelids normal Conjunctivae: conjunctivae normal Pupils: Equal, round and reactive pupils present EOM: EOMs intact bilaterally Neck Neck: Yes normal visual inspection, Yes full ROM and Yes no lymphadenopathy Chest Chest palpation & inspection: normal inspection of the chest Resp Effort & Inspection: normal respiratory effort and able to speak in complete sentences GI Inspection: Yes normal to inspection Neuro General: patient oriented x3 and moves all extremities Cranial nerves: Yes Equal, round and reactive pupils present Cognition (Neuro): normal cognition Motor exam (neuro): 5/5 motor strength present throughout Sensory Exam: Normal double simultaneous stimulation for sensation Coordination: [id number] test normal Extrem Other: General: Yes full ROM and Yes capillary refill normal Psych Appearance: grossly normal Mental Status: mental status grossly normal Affect: normal affect Attitude: cooperative Thought process: Normal thought process present Thought content: Normal thought content present Insight: Good insight present (Psych) Medications Administered Discontinued Medications Generic Name Dose Route Start Last Admin Trade Name Freq PRN Reason Stop Dose Admin Piperacillin Sod/Tazobactam 50 mls @ 100 mls/hr 07/18/23 12:57 07/18/23 13:50 Sod 3.375 gm/ Sodium Chloride IV 07/18/23 13:26 Infused ONCE ONE Infusion Medical Decision Making Medical Decision Making MDM Narrative: Patient is a 43 year old assigned male at with a history of alcohol abuse and GERD presenting to the emergency department today with worsening dog bite wound of the right forearm. Patient's physical exam was as noted in the physical exam portion of this note. Patient's blood work showed an elevated CRP of 5.13 but was otherwise unremarkable. Patient's urine showed no acute process. Patient's clinical presentation is most consistent with a right forearm cellulitis and not consistent with sepsis (@1400). I spoke with the hospitalist team who agreed to admission. I explained my physical exam findings as well as all test results to the patient. I answered all questions asked by the patient. Patient verbalized agreement and understanding with this treatment plan and admission. Differential Diagnosis Differential Diagnoses: The differential diagnosis associated with the presentation includes Cellulitis Dog bite Admission/Observation Consideration of admission/observation: Escalation of care including admission/observation considered Patient admitted. Consult Healthcare Provider Management of the patient was discussed with: Hospitalist (Agreed to admission.) Lab Data [facility] Lab Attestation statement: I reviewed the patient's lab results. My interpretation of these results are in the MDM Rationale portion of this note. 07/18/23 12:49 07/18/23 12:49 Labs: Lab Results 07/18/23 Range/Units 12:49 WBC 6.5 (4.8-10.8) X10*3/uL RBC 5.03 (4.60-5.80) X10*6/uL Hgb 15.2 (14.0-18.0) g/dl Hct 44.2 (42.0-52.0) % MCV 87.9 (80.0-98.0) fL MCH 30.2 (27.0-33.0) pg MCHC 34.4 (31.0-36.0) g/dl RDW 12.5 (11.0-16.0) % Plt Count 265 (160-400) X10*3/uL MPV 8.8 L (9.4-12.4) fL Immature Gran % (Auto) 0.2 (0.0-0.4) % Neut % (Auto) 69.7 (45-73) % Lymph % (Auto) 21.7 (20-40) % [place] % (Auto) 7.3 (2-11) % Eos % (Auto) 0.9 (0-4) % Baso % (Auto) 0.2 (0-2) % Lymph # (Auto) 1.4 (1.2-4.9) X10*3/uL [place] # (Auto) 0.5 (0.1-1.2) X10*3/uL Eos # (Auto) 0.1 (0.0-0.4) X10*3/uL Baso # (Auto) 0.0 (0.0-0.2) X10*3/uL Abs Immat Gran (auto) 0.01 (0.00-0.03) X10*3/uL Absolute Neuts (auto) 4.5 (2.0-8.3) x10*3/uL Absolute Nucleated RBC 0.000 (0.0-0.012) X10*3/uL Nucleated RBC % (auto) 0.0 (0.0-0.2) /100WBC ESR 13 (0-15) MM/HR Sodium 138 (135-145) mmol/L Potassium 4.1 (3.3-5.1) mmol/L Chloride 101 (96-108) mmol/L Carbon Dioxide 29 (22-29) mmol/L Anion Gap 12 (12-20) BUN 13 (9-16) mg/dL Creatinine 0.97 (0.5-1.4) mg/dL Estim Creat Clear Calc 108.5 Estimated GFR > 60 Random Glucose 97 (60-115) mg/dL Lactic Acid 1.0 (0.5-2.0) mmol/L Calcium 9.6 (8.4-10.2) mg/dL Magnesium 1.8 (1.6-2.6) mg/dL Total Bilirubin 0.7 (0.0-1.0) mg/dL AST 27 (5-37) U/L ALT 32 (0-40) U/L Alkaline Phosphatase 83 (39-117) U/L C-Reactive Protein 5.13 H (< or = 0.50) mg/dL Total Protein 8.7 H (6.5-8.0) g/dL Albumin 4.6 (3.5-5.0) g/dL Critical Care Time Critical Care Time Critical Care Time: Yes Total Critical Care Time: 35 Attestation: I spent 35 minutes of Critical Care Time with this patient. This does not include time spent on separately reported billable procedures. Discharge Plan Discharge Clinical Impression: Dog bite, Cellulitis Patient Disposition: Admitted As Inpatient Prescriptions: No Action buprenorphine-naloxone [Suboxone] 8-2 mg film 2 strip sublingual DAILY amoxicillin-pot clavulanate 875-125 mg tablet 1 tab PO BID 7 Days Qty: 14 0RF pantoprazole [Protonix] 40 mg tablet,delayed release (DR/EC) 40 mg PO DAILY 30 Days Qty: 30 6RF
[2023-07-18 12:55] LABS: MANUAL DIFF FLAG NO
[2023-07-18 12:58] LABS: Basophils Percent Auto 0.2 % (0-2); Eosinophils Absolute Auto 0.1 X10*3/uL (0.0-0.4); Eosinophils Percent Auto 0.9 % (0-4); Hematocrit 44.2 % (42.0-52.0); Hemoglobin 15.2 g/dl (14.0-18.0); Imm Gran Abs Auto 0.01 X10*3/uL (0.00-0.03); Imm Gran Pct Auto 0.2 % (0.0-0.4); Lymphocytes Absolute Auto 1.4 X10*3/uL (1.2-4.9); Lymphocytes Percent Auto 21.7 % (20-40); Mean Corpuscular HGB Conc 34.4 g/dl (31.0-36.0); Mean Corpuscular Hemoglobin 30.2 pg (27.0-33.0); Mean Corpuscular Volume 87.9 fL (80.0-98.0); Mean Platelet Volume 8.8 fL (9.4-12.4); Monocytes Absolute Auto 0.5 X10*3/uL (0.1-1.2); Monocytes Percent Auto 7.3 % (2-11); Neutrophils Absolute Auto 4.5 x10*3/uL (2.0-8.3); Neutrophils Percent Auto 69.7 % (45-73); Platelet Count 265 X10*3/uL (160-400); Red Blood Count 5.03 X10*6/uL (4.60-5.80); Red Cell Distribution Width 12.5 % (11.0-16.0); White Blood Count 6.5 X10*3/uL (4.8-10.8)
[2023-07-18 13:12] LABS: Alanine Aminotransferase 32 U/L (0-40); Albumin Level 4.6 g/dL (3.5-5.0); Alkaline Phosphatase 83 U/L (39-117); Anion Gap 12 (12-20); Aspartate Amino Transferase 27 U/L (5-37); Bilirubin Total 0.7 mg/dL (0.0-1.0); Blood Urea Nitrogen 13 mg/dL (9-16); C Reactive Protein 5.13 mg/dL (< or = 0.50); Calcium 9.6 mg/dL (8.4-10.2); Carbon Dioxide 29 mmol/L (22-29); Chloride 101 mmol/L (96-108); Creatinine Clr Calc Pharmacy 108.5; Estimated Glomerular Filt Rate > 60; Glucose Random 97 mg/dL (60-115); Magnesium 1.8 mg/dL (1.6-2.6); Potassium 4.1 mmol/L (3.3-5.1); Sodium 138 mmol/L (135-145); Total Protein 8.7 g/dL (6.5-8.0)
[2023-07-18] MEDS: Piperacillin Sodium/Tazobactam 3.375 GM in 0.9 % Sodium Chloride 50 ML IV ×2 (13:15→19:50)
[2023-07-18 13:36] LABS: Erythrocyte Sedimentation Rate 13 MM/HR (0-15)
--- NOTE | 2023-07-18 14:21 | PHA.MEDREC ---
Pharmacy Consult ? Medication Reconciliation Pharmacy has completed the medication reconciliation. Patient reported all medicaitons. Pamela YoungD
[2023-07-18 15:03] VITALS: BP 136/89; PULSE 71; RESP 20; TEMP 36.8; O2SAT 100
--- NOTE | 2023-07-18 15:12 | P.HPHOSP_ITS ---
History of Present Illness Date of Service: 07/18/23 Attending physician on admission: Stan [facility] Chief Complaint: Worsening cellulitis Pt is a 43-year-old male with a PMH significant for GERD and hx of opioid use disorder on Suboxone who presents to the ED with?worsening cellulitis from dog bite earlier in the week. Patient was bit on 07/15 on both the right buttock and right forearm by his dog at. States dog is up-to-date on all shots. Bite on right buttock resulted only in superficial scratches, but there were deep puncture wounds from bite on right forearm. Patient initially presented to the ED on 07/16 for right forearm pain and redness and wound was cleaned, left open, and the pt was discharged on Augmentin 875-125 p.o. b.i.d. x7 days. Pt filled prescription yesterday and took 3 doses of antibiotics, but states pain, swelling, and erythema on right forearm increased during that time. Patient also felt overall ?sick?: Had subjective fever and chills, 2 episodes of diarrhea, dizziness, and fatigue. Patient then re-presented to the ED for further evaluation. Patient was given 1 dose of IV Zosyn in the ED, and patient states he is already feeling better than when he initially presented. Patient denies chest pain/pressure, palpitations. No shortness of breath. In the ED pt was afebrile but slightly hypertensive up to 141/101. Labs were significant for elevated C reactive protein of 5.13, otherwise grossly unremarkable. No leukocytosis. Stable H&H. Renal function, hepatic function, and electrolytes all WNL. Pt was treated with Zosyn. Pt will be admitted to the hospital for treatment and further evaluation of cellulitis secondary to dog bite that failed outpatient therapy. Review of Systems 2 Review of Systems: Worsening right forearm cellulitis Subjective fever, chills Fatigue Diarrhea D[facility]iness [facility] Medical History Horseshoe kidney Small bowel obstruction Surgical History History of esophagogastroduodenoscopy (EGD) Hx of kidney disease Social History Household Members: None Household Members Other:: - 4 sons- (17-24) Unable to assess alcohol history related to: Unknown Alcohol intake: former Patient Tobacco Use Status: Never used Tobacco Smoked in Last 30 Days: No Patient Interested in Nicotine Replacement: No Patient Given Instructions on How to Stop Smoking: No Second Hand Smoke Exposure: No Use of substances other than those prescribed or required for medical reasons: No Currently Displaying Signs/Symptoms of Drug Intoxication Withdrawal: No Any prior treatment program specific to substance use: No Have you been hit, kicked, punched, or otherwise hurt by someone within the past year? If so, by whom?: No Do you feel safe in your current relationship?: No Is there a partner from a previous relationship who is making you feel unsafe now?: No Are you made to feel afraid or neglected: No Advance Directives: Yes Advance Directives Information Provided: Yes Advance Directives on File: No Advance Directives Date on File: 07/18/23 Do you have thoughts of harming others: None Do you have a plan to hurt others: No Plan Recently lost weight without trying: No Nutrition Risks: No Nutritional Risk Current occupational status: employed Current occupation: [employer] Allergies Allergy/AdvReac Type Severity Reaction Status Date / Time No Known Allergies Allergy Verified 07/18/23 12:17 Active Medications: Current Medications Acetaminophen (Acetaminophen 325 Mg Tablet) 650 mg PO Q6H PRN PRN Reason: Pain, Mild (Pain Scale 1-3) Benzonatate (Benzonatate 100 Mg Capsule) 100 mg PO TID PRN PRN Reason: Cough Enoxaparin Sodium (Enoxaparin Sodium 40 Mg/0.4 Ml Syringe) 40 mg SUBCUT Q24H BRENDEN Piperacillin Sod/Tazobactam (Sod 3.375 gm/ Sodium Chloride) 50 mls @ 100 mls/hr IV Q6H BRENDEN Melatonin (Melatonin 3 Mg Tablet) 6 mg PO BEDTIME PRN PRN Reason: Insomnia Ondansetron HCl (Ondansetron Hcl 4 Mg/2 Ml Vial) 4 mg IVPUSH Q8H PRN PRN Reason: Nausea and Vomiting Sodium Chloride (0.9 % Sodium Chloride Flush 3 Ml Syringe) 3 ml IVFLUSH QSHIFT [facility] Home Medications Medication Instructions Recorded Confirmed Last Taken Type buprenorphine 8 mg-naloxone 2 mg 1 strip sublingual BID 12/03/21 07/18/23 07/18/23 History sublingual film (Suboxone) Physical Exam 2 Vital Signs and Narrative: Vital Signs: Last Vital Signs Temp 98.2 F 07/18/23 15:03 Pulse 71 07/18/23 15:03 Resp 20 07/18/23 15:03 BP 136/89 07/18/23 15:03 Pulse Ox 100 07/18/23 15:03 O2 Del Method Room Air 07/18/23 15:03 BMI result Body Mass Index 33.2 General: AOx3, no acute distress Resp: CTA bilaterally CVS: S1, S2, RRR GI: +BS, NT, no distention Skin: Warm, dry Neuro: Cranial nerves II-XII grossly intact bilaterally. Motor grossly intact bilaterally Extremities: No edema. Right forearm with area erythema, swelling, and open puncture wounds draining serous sanguinous fluid. As pictured below Psych: Appropriate affect Results Labs 07/18/23 12:49 07/18/23 12:49 Labs: Laboratory Results - last 24 hr 07/18/23 12:49 MCV 87.9 MCH 30.2 MCHC 34.4 RDW 12.5 Plt Count 265 MPV 8.8 L Immature Gran % (Auto) 0.2 Neut % (Auto) 69.7 Lymph % (Auto) 21.7 Stephens % (Auto) 7.3 Eos % (Auto) 0.9 Baso % (Auto) 0.2 Lymph # (Auto) 1.4 Stephens # (Auto) 0.5 Eos # (Auto) 0.1 Baso # (Auto) 0.0 Abs Immat Gran (auto) 0.01 Absolute Neuts (auto) 4.5 Absolute Nucleated RBC 0.000 Nucleated RBC % (auto) 0.0 ESR 13 Anion Gap 12 Estim Creat Clear Calc 108.5 Estimated GFR > 60 Random Glucose 97 Lactic Acid 1.0 Calcium 9.6 Magnesium 1.8 Total Bilirubin 0.7 AST 27 ALT 32 Alkaline Phosphatase 83 C-Reactive Protein 5.13 H Total Protein 8.7 H Albumin 4.6 Assessment and Plan (1) Cellulitis: Status: Acute (2) Dog bite: Status: Acute Plan Pt is a 43-year-old male with a PMH significant for GERD and hx of opioid use disorder on Suboxone who presents to the ED with?worsening cellulitis from dog bite earlier in the week. Patient was bit on 07/15 on both the right buttock and right forearm by his dog at. States dog is up-to-date on all shots. Pt will be admitted to the hospital for treatment and further evaluation of cellulitis secondary to dog bite that failed outpatient therapy. Right forearm cellulitis from dog bite that failed outpatient therapy Patient started Augmentin on 07/17, took 3 doses but had worsening erythema, swelling, pain in right forearm No purulent drainage, drainage serosanguineous Dog reportedly up-to-date on shots Analgesics for pain management Patient does not meet sepsis criteria: No leukocytosis, tachycardia, tachypnea, or documented fever Will treat with IV Zosyn Q 6 GERD Continue PPI Opioid use disorder Continue Suboxone Full Code Attending:?Dr. Leon DVT Prophylaxis: Lovenox Pt will require a hospitalization of at least two nights for treatment of?cellulitis secondary to dog bite that failed outpatient therapy. Patient will be treated with IV antibiotics. Quality Stroke Does the patient have a stroke diagnosis?: No VTE Prior VTE?: No VTE Risk Level:: Medical - moderate - high VTE Device Contraindication: Treatment Not Indicated VTE Drug Contraindication: N/A - Med Ordered
--- NOTE | 2023-07-18 15:44 | PC.NURSE ---
pt a&ox4, vss, reports improvement in pain and swelling to dog bit on R forearm after initial dose of IV abx, 20G PIV L AC, labs drawn, cultures obtained, medicated per SEP. belongings list completed w tech, pt declined changing over into hospital [facility] until upstairs in more private room. pt resting quietly, pending bed assignment. no new orders at this time.
[2023-07-18] MEDS: Enoxaparin Sodium 40 MG/0.4 ML SYRINGE SUBCUT (16:58)
[2023-07-18] MEDS: 0.9 % Sodium Chloride Flush 3 ML SYRINGE IVFLUSH ×2 (16:58→22:10)
--- NOTE | 2023-07-18 17:03 | PC.NURSE ---
pt medicated per MAR, pt given ham sandwich, cheese stick and chris odilon, plan for bed assignment around 1900 per RN bleach supervisor. pt agreeable to plan of care. no new orders at this time.
[2023-07-18 19:49] VITALS: BP 138/88; PULSE 74; RESP 20; TEMP 36.7; O2SAT 99
[2023-07-18 20:00] VITALS: BP 152/70; PULSE 71; RESP 18; TEMP 37.1; O2SAT 100
--- NOTE | 2023-07-18 20:32 | PC.NURSE ---
admission worksheet complete, admitting RN aware, pt transported via wheelchair w transport.
[2023-07-18 21:27] VITALS: BMI 33.8
[2023-07-18] MEDS: Buprenorphine/Naloxone 8/2 mg FILM 1 FILM SUBLINGUAL (22:09)
[2023-07-19] MEDS: Piperacillin Sodium/Tazobactam 3.375 GM in 0.9 % Sodium Chloride 50 ML IV ×3 (00:55→12:12)
[2023-07-19 03:28] VITALS: BP 119/79; PULSE 80; RESP 18; TEMP 35.9; O2SAT 98
[2023-07-19] MEDS: Omeprazole 20 MG CAPSULE.DR PO (06:09)
[2023-07-19 07:19] VITALS: BP 130/78; PULSE 68; RESP 16; TEMP 36.6; O2SAT 99
[2023-07-19] MEDS: 0.9 % Sodium Chloride Flush 3 ML SYRINGE IVFLUSH (08:26)
[2023-07-19] MEDS: Buprenorphine/Naloxone 8/2 mg FILM 1 FILM SUBLINGUAL (08:26)
--- NOTE | 2023-07-19 08:46 | P.DS_ITS ---
DS: Providers Provider Date of Service: 07/19/23 Date of admission: 07/18/23 15:01 Primary care physician: Darius Celis MD DS: Diagnosis Discharge Diagnosis (1) Cellulitis: Status: Acute (2) Dog bite: Status: Acute DS: Summary Hospital Course Hospital Course: Pt is a 43-year-old male with a PMH significant for GERD and hx of opioid use disorder on Suboxone who presents to the ED with?worsening cellulitis from dog bite earlier in the week. Patient was bit on 07/15 on both the right buttock and right forearm by his dog at. States dog is up-to-date on all shots. Bite on right buttock resulted only in superficial scratches, but there were deep puncture wounds from bite on right forearm. Patient initially presented to the ED on 07/16 for right forearm pain and redness and wound was cleaned, left open, and the pt was discharged on Augmentin 875-125 p.o. b.i.d. x7 days. Pt filled prescription yesterday and took 3 doses of antibiotics, but states pain, swelling, and erythema on right forearm increased during that time. Patient also felt overall ?sick?: Had subjective fever and chills, 2 episodes of diarrhea, dizziness, and fatigue. Patient then re-presented to the ED for further evaluation. Patient was given 1 dose of IV Zosyn in the ED, and patient states he is already feeling better than when he initially presented. Patient denies chest pain/pressure, palpitations. No shortness of breath. In the ED pt was afebrile but slightly hypertensive up to 141/101. Labs were significant for elevated C reactive protein of 5.13, otherwise grossly unremarkable. No leukocytosis. Stable H&H. Renal function, hepatic function, and electrolytes all WNL. Pt was treated with Zosyn. Pt will be admitted to the hospital for treatment and further evaluation of cellulitis secondary to dog bite that failed outpatient therapy. Hospital course:Patient was admitted due to Dog bite cellulitis that was not improving with Augmentin prescribed 2 days earlier. He was treated in the Hospital with IV Zosyn in the hospital with rapid improvement and will be discharged to complete oral antibiotics with Augmentin and Final Diagnoses: Dog Bite Cellulitis Time Attestation Discharge coordination time: Greater than 30 minutes Quality: Safe Use of Opioids Does Pt have an Active Cancer Diagnosis on the Problem List?: No Quality: Stroke Does the patient have a stroke diagnosis?: No Physical Exam Vital Signs: Vital Signs: Last Vital Signs Temp 97.8 F 07/19/23 07:19 Pulse 68 07/19/23 07:19 Resp 16 07/19/23 07:19 BP 130/78 07/19/23 07:19 Pulse Ox 99 07/19/23 07:19 O2 Del Method Room Air 07/19/23 07:19 BMI result Body Mass Index 33.8 DS: Data Data Completed and Pending Labs on day of discharge: Laboratory Results - last 24 hr 07/18/23 12:49 WBC 6.5 RBC 5.03 Hgb 15.2 Hct 44.2 MCV 87.9 MCH 30.2 MCHC 34.4 RDW 12.5 Plt Count 265 MPV 8.8 L Immature Gran % (Auto) 0.2 Neut % (Auto) 69.7 Lymph % (Auto) 21.7 [place] % (Auto) 7.3 Eos % (Auto) 0.9 Baso % (Auto) 0.2 Lymph # (Auto) 1.4 [place] # (Auto) 0.5 Eos # (Auto) 0.1 Baso # (Auto) 0.0 Abs Immat Gran (auto) 0.01 Absolute Neuts (auto) 4.5 Absolute Nucleated RBC 0.000 Nucleated RBC % (auto) 0.0 ESR 13 Sodium 138 Potassium 4.1 Chloride 101 Carbon Dioxide 29 Anion Gap 12 BUN 13 Creatinine 0.97 Estim Creat Clear Calc 108.5 Estimated GFR > 60 Random Glucose 97 Lactic Acid 1.0 Calcium 9.6 Magnesium 1.8 Total Bilirubin 0.7 AST 27 ALT 32 Alkaline Phosphatase 83 C-Reactive Protein 5.13 H Total Protein 8.7 H Albumin 4.6 Discharge Plan Discharge Anticipated Discharge Date/Time: 07/19/23 08:50 Patient Disposition: Home, Self-Care Discharge Diagnosis: Cellulitis due to Dog bite Referrals: Darius Celis MD [Primary Care Provider] - 1 Week Discharge Medications: New levofloxacin 500 mg tablet 500 mg PO DAILY 7 Days Qty: 7 0RF metronidazole 500 mg tablet 500 mg PO BID 7 Days Qty: 14 0RF Continued buprenorphine-naloxone [Suboxone] 8-2 mg film 1 strip sublingual BID Discontinued amoxicillin-pot clavulanate 875-125 mg tablet 1 tab PO BID 7 Days Qty: 14 0RF No Action pantoprazole 40 mg tablet,delayed release (DR/EC) 40 mg PO DAILY Qty: 30 6RF Discharge Orders: Discharge Order (Routine); Ordered 07/19/23 Ordered By: Stan Leon Diet: Advance to usual diet Activity on Discharge: As tolerated Stand Alone Forms: Patient Portal Discharge page Care Plan Goals: full recovery from dog bite Health Concerns: dog bite with cellulitis Plan of Treatment: Take antibiotics (levaquin and Flagyl) as recommended and follow up with your Doctor in a week, call for appointment If the area of inflammation gets worse, fever, chill or excessive pain, come back to emergency room Assessment: See above Discharge Date/Time: 07/19/23 13:47
--- NOTE | 2023-07-19 11:17 | MHC.CM.PN ---
pt dcd home no sevies needed
== END 2023-07-19 13:47 | disposition home or self-care (01) | DRG 383 ==
LOC: HO.ED 14:33 → HO.EDOVER 15:23 → HO.S3 19:50
PROVIDERS: Physician Assistant Medical; Admitting Provider Internal Medicine Critical Care Medicine; Emergency Provider Emergency Medicine Emergency Medical Services; PCP Internal Medicine; Visit Provider Internal Medicine
DX: L03.113 Cellulitis of right upper limb (principal); F11.20 Opioid dependence, uncomplicated; K21.9 Gastro-esophageal reflux disease without esophagitis; Q63.1 Lobulated, fused and horseshoe kidney; S40.8 Other superficial injuries of upper arm; W54.0XXS Bitten by dog, sequela; Z23 Encounter for immunization; Z79.899 Other long term (current) drug therapy
CPT/HCPCS: 36415; 80053; 83605; 83735; 85025; 85652; 86140; 87040; 90686; 99221; 99285; J1650; J2543

== ENCOUNTER → 2023-07-18 15:01 | Outpatient (BNV) | payer MEDICAID, SELFPAY | PROVIDERS: Admitting Provider Internal Medicine Critical Care Medicine; Emergency Provider Emergency Medicine Emergency Medical Services; PCP Internal Medicine; Visit Provider Student in an Organized Health Care Education/Training Program | DX: L03.90 Cellulitis, unspecified (principal); W54.0XXA Bitten by dog, initial encounter | CPT/HCPCS: 99222; 99239 ==

== ENCOUNTER 2023-10-18 06:13 | Emergency (ER) | payer MEDICAID, SELFPAY ==
--- NOTE | ~2023-10-18 | US_ITS ---
EXAMINATION: US ABDOMEN COMPLETE CLINICAL INFORMATION: Epigastric pain rule out GS. COMPARISON: CT abdomen from 06/18/2022 TECHNIQUE: Real-time imaging of the abdominal viscera. Technical limitation secondary to body habitus. FINDINGS: PANCREAS: Normal. ABDOMINAL AORTA: The proximal, mid, and distal segments are normal in caliber. INFERIOR VENA CAVA: Visualized portions are normal. LIVER: Normal. The liver is normal in size. The liver contour is normal. Hepatic echogenicity suggesting hepatic steatosis. No focal hepatic lesion. There is no intrahepatic biliary duct dilatation seen. GALLBLADDER: Normal. The gallbladder is physiologically distended without evidence of stones, sludge, polyps, wall thickening or pericholecystic fluid. Sonographic Omalley sign is negative. COMMON BILE DUCT: Normal in caliber measuring 0.3 cm in diameter. RIGHT KIDNEY: Horseshoe kidney. No hydronephrosis. No renal calculi or focal parenchymal lesions. The kidney measures 10.2 cm in maximum dimension. LEFT KIDNEY: Acute kidney. Mild left caliectasis. Nonobstructive left renal calculus measuring up to 2.2 cm. No hydronephrosis. No renal calculi or focal parenchymal lesions. The kidney measures 8.6 cm in maximum dimension. SPLEEN: Normal. The spleen measures 10.4 cm in maximum dimension. FREE FLUID: None. US/US abdomen complete IMPRESSION: 1. Increased hepatic echogenicity suggesting hepatic steatosis. 2. Horseshoe kidney. 3. Nonobstructive left renal calculus measuring up to 2.2 cm with mild left caliectasis.
[2023-10-18 06:19] VITALS: BP 163/88; PULSE 82; RESP 18; TEMP 36.7; O2SAT 99; BMI 34.4
[2023-10-18 06:44] LABS: Hematocrit 41.6 % (42.0-52.0); Hemoglobin 14.1 g/dl (14.0-18.0); Mean Corpuscular HGB Conc 33.9 g/dl (31.0-36.0); Mean Corpuscular Hemoglobin 30.9 pg (27.0-33.0); Mean Platelet Volume 8.6 fL (9.4-12.4); Platelet Count 270 X10*3/uL (160-400); Red Blood Count 4.57 X10*6/uL (4.60-5.80); Red Cell Distribution Width 12.4 % (11.0-16.0); White Blood Count 3.7 X10*3/uL (4.8-10.8)
[2023-10-18 06:52] LABS: Alanine Aminotransferase 27 U/L (0-40); Alkaline Phosphatase 63 U/L (39-117); Anion Gap 10 (12-20); Aspartate Amino Transferase 23 U/L (5-37); Bilirubin Total 0.4 mg/dL (0.0-1.0); Blood Urea Nitrogen 10 mg/dL (9-16); Calcium 9.1 mg/dL (8.4-10.2); Carbon Dioxide 27 mmol/L (22-29); Chloride 106 mmol/L (96-108); Estimated Glomerular Filt Rate > 60; Glucose Random 104 mg/dL (60-115); Lipase 16 U/L (8-78); Potassium 3.6 mmol/L (3.3-5.1); Sodium 139 mmol/L (135-145); Total Protein 7.2 g/dL (6.5-8.0)
--- NOTE | 2023-10-18 07:18 | ED_ITS ---
HPI - Abdominal Pain General Chief Complaint: Abdominal Pain Stated Complaint: Abd pain/ N/V/D Time Seen by Provider: 10/18/23 07:10 Source: patient Mode of arrival: ambulatory Limitations: no limitations History of Present Illness HPI narrative: 43-year-old male came in for evaluation of epigastric pain started since early this morning, patient had history of acid reflux been seen by a GI had EGD which was unremarkable patient started on PPI, patient also cut down on drinking alcohol. Patient admit to eating cereal late last night before the pain started but declined any recent use of alcohol, patient do not smoke, pain is associated with nausea but no vomiting, nonbloody loose stoolx4 since the pain started, stool is brown in color with no blood or black stool. Pain is mostly epigastric similar to previous symptoms in the past, patient had other GI studies i.e. Gastric emptying, abdomen CT, EGD. Patient had intra-abdominal surgery as a child that patient is not aware, noticed during the exam extensive lower mid abdominal surgical old incision. Related Data Home Medications Medication Instructions Recorded Confirmed buprenorphine 8 mg-naloxone 2 mg 1 strip sublingual BID 12/03/21 07/18/23 sublingual film (Suboxone) Previous Rx's Medication Instructions Recorded levofloxacin 500 mg tablet 500 mg PO DAILY 7 days #7 tabs 07/19/23 metronidazole 500 mg tablet 500 mg PO BID 7 days #14 tabs 07/19/23 pantoprazole 40 mg tablet,delayed 40 mg PO DAILY #30 tabs 08/14/23 release Allergies Allergy/AdvReac Type Severity Reaction Status Date / Time No Known Allergies Allergy Verified 10/18/23 06:18 Review of Systems Review of Systems all other systems are reviewed and are negative Constitutional: Reports as per HPI and Reports no additional constitutional complaints Eyes: Reports as per HPI and Reports no additional eye complaints Reports system reviewed and no additional complaints, except as documented Cardiovascular: Reports as per HPI and Reports no additional cardiovascular complaints Respiratory: Reports as per HPI and Reports no additional respiratory complaints Gastrointestinal: Reports as per HPI and Reports no additional gastrointestinal complaints Genitourinary: Reports no additional female genitourinary complaints Musculoskeletal: Reports no additional musculoskeletal complaints Skin/Breast: Reports system reviewed and no additional complaints, except as docu Psychiatric: Reports no additional psychiatric complaints Endocrine: Reports no additional endocrine complaints Hematologic/Lymphatic: Reports no additional hematologic/lymphatic complaints Allergic/Immunologic: Reports no additional allergic/immunologic complaints Reports system reviewed and no additional complaints, except as documented and Reports Abnormal speech present [facility] Past Medical History Medical History Horseshoe kidney Small bowel obstruction Surgical History History of esophagogastroduodenoscopy (EGD) Hx of kidney disease Social History Social History Household Members: None Household Members Other:: - 4 sons- (17-24) Unable to assess alcohol history related to: Unknown Alcohol intake: former Patient Tobacco Use Status: Never used Tobacco Smoked in Last 30 Days: No Second Hand Smoke Exposure: No Use of substances other than those prescribed or required for medical reasons: No Advance Directives: No Advance Directives Information Provided: Yes Advance Directives Date on File: 07/18/23 Current occupational status: employed Current occupation: [employer] Physical Exam ED Vital Signs: Vital Signs - 24 hr 10/18/23 06:19 10/18/23 07:27 Temperature 98.0 F 97.9 F Pulse Rate 82 73 Respiratory Rate 18 20 Blood Pressure 163/88 H 127/85 Pulse Oximetry 99 97 Oxygen Delivery Method Room Air Room Air BMI result Body Mass Index 34.4 Vital signs have been reviewed and appear to be correct. Blood pressure elevated. Heart rate normal. Respiratory rate normal. Temperature normal. Oxygen saturation normal. Appearance: Alert. Oriented X3. No acute distress. Head: Normal external exam. Normocephalic. Atraumatic. No Melendez signs noted. No raccoon eyes noted Eyes: PERRLA. EOMI. Conjunctiva and sclera normal. Eyelids normal. ENT: TM's Normal. Pharynx normal. Uvula midline. Moist mucous membranes. No trismus noted. No drooling noted. No muffled voice noted. Neck: Normal inspection. Neck supple. FROM. No adenopathy. Thyroid Normal. No meningeal signs. No neck mass noted. CVS: Normal heart rate and rhythm. Heart sound normal. No murmurs noted. Pulses normal throughout. Respiratory: No respiratory distress. Painless inspiration. Breath sounds normal. No wheezes/rales/rhonchi noted. Chest nontender. No accessory muscle usage noted or decreased air movement noted. Abdomen: Soft , epigastric tenderness, no guarding, no rebound tenderness.Bowel sounds normal in all 4 quadrants. No distention noted. No organomegaly noted. No visible injury noted. Back: No CVA tenderness. Full range of motion noted. Skin: Skin warm and dry. Normal skin color. Normal skin turgor. No rashes/lesions/lacerations noted. Extremities: No lower extremity edema. Extremities exhibit normal range of motion. Extremities nontender. Neuro: Oriented X 3. Cranial nerve exam: II-XII are grossly intact No motor deficit. No sensory deficit. Reflexes normal. Course Reevaluation(s) Reevaluation #1: 43-year-old male with acute on chronic epigastric pain, patient had previous GI workup currently receiving PPI, patient admitted to eating heavy meal last night before he went to bed. Patient was instructed to eat frequent small meals portions, continue with the PPI, refrain from alcohol. Otherwise follow-up with his GI doctor. Time: 10:01 Medical Decision Making Differential Diagnosis Differential Diagnoses: The differential diagnosis associated with the presentation includes ( Cholelithiasis, cholecystitis, pancreatitis, gastritis, acid reflux, dehydration, electrolyte derangement, anemia.) Admission/Observation Consideration of admission/observation: Escalation of care including admission/observation considered Lab Data MDM Lab Attestation statement: I reviewed the patient's lab results. 10/18/23 06:32 10/18/23 06:32 Labs: Lab Results 10/18/23 10/18/23 Range/Units 06:32 08:43 WBC 3.7 L (4.8-10.8) X10*3/uL RBC 4.57 L (4.60-5.80) X10*6/uL Hgb 14.1 (14.0-18.0) g/dl Hct 41.6 L (42.0-52.0) % MCV 91.0 (80.0-98.0) fL MCH 30.9 (27.0-33.0) pg MCHC 33.9 (31.0-36.0) g/dl RDW 12.4 (11.0-16.0) % Plt Count 270 (160-400) X10*3/uL MPV 8.6 L (9.4-12.4) fL Absolute Nucleated RBC 0.000 (0.0-0.012) X10*3/uL Nucleated RBC % (auto) 0.0 (0.0-0.2) /100WBC Sodium 139 (135-145) mmol/L Potassium 3.6 (3.3-5.1) mmol/L Chloride 106 (96-108) mmol/L Carbon Dioxide 27 (22-29) mmol/L Anion Gap 10 L (12-20) BUN 10 (9-16) mg/dL Creatinine 0.85 (0.5-1.4) mg/dL Estim Creat Clear Calc 126.0 Estimated GFR > 60 Random Glucose 104 (60-115) mg/dL Calcium 9.1 (8.4-10.2) mg/dL Total Bilirubin 0.4 (0.0-1.0) mg/dL AST 23 (5-37) U/L ALT 27 (0-40) U/L Alkaline Phosphatase 63 (39-117) U/L Total Protein 7.2 (6.5-8.0) g/dL Albumin 4.0 (3.5-5.0) g/dL Lipase 16 (8-78) U/L Urine Color Dark Yellow Urine Appearance Clear Urine pH 5.5 (5.0-9.0) Ur Specific [place] >= 1.030 H (1.005-1.025) Urine Protein Trace (Neg-Trace) mg/dL Urine Glucose (UA) Negative (Negative) mg/dL Urine Ketones Trace (Negative) mg/dL Urine Blood Negative (Negative) Urine Nitrite Negative (Negative) Ur Leukocyte Esterase Negative (Negative) Independent Interpretation I performed an independent interpretation of an: Ultrasound ( abdomen:1. Increased hepatic echogenicity suggesting hepatic steatosis. 2. Horseshoe kidney. 3. Nonobstructive left renal calculus measuring up to 2.2 cm with mild left caliectasis. ) Radiology Impression Discussion of test interpretation with radiology: I have reviewed the radiologist's reading. Medications Administered Discontinued Medications Generic Name Dose Route Start Last Admin Trade Name Freq PRN Reason Stop Dose Admin Al Hydroxide/Mg Hydroxide 30 ml 10/18/23 07:15 10/18/23 07:55 Magnesium Hydrox/Alum Hydrox 30 Ml Oral.Susp PO 10/18/23 07:16 30 ml ONCE ONE Administration Famotidine 20 mg 10/18/23 07:15 10/18/23 07:55 Famotidine/Pf 20 Mg/2 Ml Vial IVPUSH 10/18/23 07:16 20 mg ONCE ONE Administration Ondansetron HCl 4 mg 10/18/23 07:26 10/18/23 07:55 Ondansetron Hcl 4 Mg/2 Ml Vial IVPUSH 10/18/23 07:27 4 mg ONCE ONE Administration Discharge Plan Discharge Clinical Impression: Gastroesophageal reflux disease Patient Disposition: Home, Self-Care Instructions: Gastroesophageal Reflux Disease (ED) Additional Instructions: eat frequent small portions meals and snacks, avoid big meals especially at nighttime before bedtime, refrain from drinking alcohol or eating spicy or greasy food. Prescriptions: No Action pantoprazole 40 mg tablet,delayed release (DR/EC) 40 mg PO DAILY Qty: 30 6RF buprenorphine-naloxone [Suboxone] 8-2 mg film 1 strip sublingual BID levofloxacin 500 mg tablet 500 mg PO DAILY 7 Days Qty: 7 0RF metronidazole 500 mg tablet 500 mg PO BID 7 Days Qty: 14 0RF Referrals: Darius Celis MD [Primary Care Provider] -
[2023-10-18 07:27] VITALS: BP 127/85; PULSE 73; RESP 20; TEMP 36.6; O2SAT 97
[2023-10-18] MEDS: Famotidine/PF 20 MG/2 ML VIAL IVPUSH (07:55)
[2023-10-18] MEDS: Magnesium Hydrox/Alum Hydrox 30 ML ORAL.SUSP PO (07:55)
[2023-10-18] MEDS: ondansetron HCL 4 MG/2 ML VIAL IVPUSH (07:55)
[2023-10-18 08:50] LABS: Appearance Urine Clear; Color Urine Dark Yellow; Glucose Urine UA Negative (Negative); Leukocyte Esterase Urine Negative (Negative); Nitrite Urine Negative (Negative); PH 5.5 (5.0-9.0); Specific Gravity - Urine >= 1.030 (1.005-1.025); Urine Blood Negative (Negative); Urine Ketones Trace mg/dL (Negative); Urine Protein Trace mg/dL (Neg-Trace)
[2023-10-18] MEDS: Morphine Sulfate 2 MG/ML CARTRIDGE IVPUSH (10:03)
[2023-10-18 10:26] VITALS: BP 123/85; PULSE 72; RESP 16; TEMP 36.8; O2SAT 97
== END 2023-10-18 10:26 | disposition home or self-care (01) ==
PROVIDERS: Emergency Provider Emergency Medicine; PCP Internal Medicine
DX: K21.9 Gastro-esophageal reflux disease without esophagitis (principal); R11.2 Nausea with vomiting, unspecified; Z79.899 Other long term (current) drug therapy
CPT/HCPCS: 36415; 76700; 80053; 81003; 83690; 85027; 96374; 96375; 99284; J2270; J2405

== ENCOUNTER 2024-08-13 05:52 | Emergency (ER) | payer SELFPAY ==
[2024-08-13 05:57] VITALS: BP 165/93; PULSE 122; RESP 20; TEMP 38.2; O2SAT 100; BMI 33.2
[2024-08-13] MEDS: Ondansetron ODT 4 MG TAB.RAPDIS TRANSLINGU (06:04)
--- NOTE | 2024-08-13 06:43 | PC.NURSE ---
Dr. Johnson made aware of possible sepsis risk at this time. Was not able to make provider aware sooner due to acuity in department.
[2024-08-13 07:20] LABS: Influenza A PCR NEGATIVE (Negative); Influenza B PCR NEGATIVE (Negative); Resp Syncy Virus RNA Qual PCR NEGATIVE (Negative); SARS COV2 PCR INHOUSE NEGATIVE (Negative)
[2024-08-13 08:04] VITALS: BP 133/91; PULSE 96; RESP 16; O2SAT 94
[2024-08-13] MEDS: Ibuprofen 600 MG TABLET PO (09:51)
--- NOTE | 2024-08-13 10:04 | ED.GENADULT ---
HPI - General Adult General Chief complaint: Upper Respiratory Symptoms Stated complaint: flu like Time Seen by Provider: 08/13/24 09:16 History of Present Illness HPI narrative: Patient complains of 2 days of a headache mostly a frontal headache behind his eyes, fever, a cough, nausea and body aches Both of his children have been sick with a similar illness, 1 of the children tested positive for COVID He denies any vision change or vision loss there is no dizziness no weakness no fainting, there is no sore throat there is no chest pain no shortness breath no abdominal pain, there is nausea but no vomiting, no diarrhea no dysuria no rash Related Data Home Medications ?Medication ?Instructions ?Recorded ?Confirmed buprenorphine 8 mg-naloxone 2 mg 1 strip sublingual BID 12/03/21 07/18/23 sublingual film (Suboxone) Previous Rx's ?Medication ?Instructions ?Recorded levofloxacin 500 mg tablet 500 mg PO DAILY 7 days #7 tabs 07/19/23 metronidazole 500 mg tablet 500 mg PO BID 7 days #14 tabs 07/19/23 pantoprazole 40 mg tablet,delayed 40 mg PO DAILY #30 tabs 02/06/24 release acetaminophen 325 mg tablet 650 mg (2 x 325 mg) PO Q4H PRN 08/13/24 fever or pain #30 tabs ibuprofen 600 mg tablet 600 mg PO Q6H PRN pain #20 tabs 08/13/24 ondansetron 4 mg disintegrating 4 mg PO Q6H nausea and vomiting 08/13/24 tablet #14 tabs Allergies Allergy/AdvReac Type Severity Reaction Status Date / Time No Known Allergies Allergy Verified 08/13/24 05:59 [facility] Past Medical History Source: nursing notes reviewed Medical History Horseshoe kidney Small bowel obstruction Surgical History History of esophagogastroduodenoscopy (EGD) Hx of kidney disease Social History Social History Household Members: None Household Members Other:: - 4 sons- (17-24) Unable to assess alcohol history related to: Unknown Alcohol intake: former Patient Tobacco Use Status: Never used Tobacco Second Hand Smoke Exposure: No Advance Directives: No Advance Directives Information Provided: Yes Advance Directives Date on File: 07/18/23 Do you have a plan to hurt others: No Plan Current occupational status: employed Current occupation: [employer] Physical Exam ED Vital Signs: Vital Signs - 24 hr 08/13/24 05:57 08/13/24 08:04 08/13/24 10:19 Temperature 100.7 F H 100.7 F H Pulse Rate 122 H 96 96 Respiratory Rate 20 16 16 Blood Pressure 165/93 H 133/91 H 133/91 H Pulse Oximetry 100 94 94 Oxygen Delivery Method Room Air Room Air Room Air BMI result Body Mass Index 33.2 Temp 100.7 degrees is noted with an initial tachycardia of 122 noted, 2nd set of vitals showed a pulse of 96 General appearance no acute distress calm cooperative The ears no redness of tympanic membrane no narrowing of canal bilateral The eyes pupils equal round reactive to light extraocular motions are intact, visual acuity is 2020 bilateral, no redness or discharge The sinuses are nontender The pharynx is clear without redness swelling or exudate, mucous membranes are moist Neck is supple Chest clear to auscultation bilateral full symmetric equal breath sounds The heart has no murmur The abdomen soft nontender Extremities full range of motion x4 Skin no rash Neuro gait and balance are normal, comprehension interaction and expression are all normal, cranial nerves 2-12 intact as tested Course Course Course Narrative: COVID and flu tests were negative Patient's nausea was relieved any tolerates p.o. after Zofran, he has not been vomiting His pulse and headache were very improved with ibuprofen Patient likely has a viral illness similar to his 2 children and was discharged Medications Administered Discontinued Medications Generic Name Dose Route Start Last Admin Trade Name Carlos Eduardo PRN Reason Stop Dose Admin Ibuprofen 600 mg 08/13/24 09:43 08/13/24 09:51 Ibuprofen 600 Mg Tablet PO 08/13/24 09:44 600 mg ONCE ONE Administration Ondansetron HCl 4 mg 08/13/24 06:01 08/13/24 06:04 Ondansetron Odt 4 Mg Tab.Rapdis TRANSLINGU 08/13/24 06:02 4 mg ONCE ONE Administration Medical Decision Making Lab Data Labs: Lab Results 08/13/24 Range/Units 06:25 Influenza Type A (PCR) NEGATIVE (Negative) Influenza Type B (PCR) NEGATIVE (Negative) RSV RNA Qual (PCR) NEGATIVE (Negative) SARS-CoV-2 RNA (RT-PCR) NEGATIVE (Negative) Discharge Plan Discharge Clinical Impression: Viral illness Patient Disposition: Home, Self-Care Additional Instructions: COVID and flu tests were negative Sometimes an initial COVID test Mrs. Dasilva so it is fine if you want to take a home test to confirm that it is negative Drink plenty of fluids, Tylenol and or Motrin for fever and body aches and headache Zofran if needed for nausea Return to the ER any time any worse condition or any concerns Prescriptions: New ondansetron 4 mg tablet,disintegrating 4 mg PO Q6H Qty: 14 0RF acetaminophen 325 mg tablet 650 mg PO Q4H PRN (Reason: fever or pain) Qty: 30 0RF ibuprofen 600 mg tablet 600 mg PO Q6H PRN (Reason: pain) Qty: 20 0RF No Action pantoprazole 40 mg tablet,delayed release (DR/EC) 40 mg PO DAILY Qty: 30 6RF buprenorphine-naloxone [Suboxone] 8-2 mg film 1 strip sublingual BID levofloxacin 500 mg tablet 500 mg PO DAILY 7 Days Qty: 7 0RF metronidazole 500 mg tablet 500 mg PO BID 7 Days Qty: 14 0RF Stand Alone Forms: Work/School Release Interventions: ED Discharge Assessment Last Done: 08/13/24 10:19 Discharge Date/Time: 08/13/24 10:20 Print Language: Irish
[2024-08-13 10:19] VITALS: BP 133/91; PULSE 96; RESP 16; TEMP 38.2; O2SAT 94
== END 2024-08-13 10:20 | disposition home or self-care (01) ==
PROVIDERS: Emergency Provider Emergency Medicine; PCP Student in an Organized Health Care Education/Training Program
DX: B34.9 Viral infection, unspecified (principal); R51.9 Headache, unspecified; R05.9 Cough, unspecified; Z03.818 Encounter for observation for suspected exposure to other biological agents ruled out
CPT/HCPCS: 0241U; 99283

== ENCOUNTER 2024-08-15 01:16 | Emergency (ER) | payer SELFPAY ==
--- NOTE | ~2024-08-15 | XR_ITS ---
CLINICAL HISTORY: cough, fever 1 view chest x-ray Comparison: CR/SR - XR CHEST 1V - 11/16/21 17:36 EDT Findings: The lungs are clear. Heart size is normal. No acute fracture. IMPRESSION: 1. No acute findings. This document has been electronically signed by: Alexandra Bishop MD on 08/15/2024 04:33:08
[2024-08-15 01:21] VITALS: BP 147/84; PULSE 111; RESP 18; TEMP 37.8; O2SAT 98; BMI 33.2
[2024-08-15 02:26] LABS: Influenza A PCR NEGATIVE (Negative); Influenza B PCR NEGATIVE (Negative); Resp Syncy Virus RNA Qual PCR NEGATIVE (Negative); SARS COV2 PCR INHOUSE NEGATIVE (Negative)
--- NOTE | 2024-08-15 03:26 | ED_ITS ---
HPI - General Adult General Chief complaint: Upper Respiratory Symptoms Stated complaint: headache- weak Time Seen by Provider: 08/15/24 02:18 Source: patient Mode of arrival: ambulatory Limitations: no limitations History of Present Illness ED Provider: Dr. Emely Dangelo HPI narrative: Patient comes to the emergency room complaining of vomiting, diarrhea, fever. Patient states that at home people have COVID. At this time, patient complaining mostly of a headache. Patient denies any shortness of breath but states that he has been coughing quite a bit. Related Data Home Medications ?Medication ?Instructions ?Recorded ?Confirmed buprenorphine 8 mg-naloxone 2 mg 1 strip sublingual BID 12/03/21 07/18/23 sublingual film (Suboxone) Previous Rx's ?Medication ?Instructions ?Recorded levofloxacin 500 mg tablet 500 mg PO DAILY 7 days #7 tabs 07/19/23 metronidazole 500 mg tablet 500 mg PO BID 7 days #14 tabs 07/19/23 pantoprazole 40 mg tablet,delayed 40 mg PO DAILY #30 tabs 02/06/24 release acetaminophen 325 mg tablet 650 mg (2 x 325 mg) PO Q4H PRN 08/13/24 fever or pain #30 tabs ibuprofen 600 mg tablet 600 mg PO Q6H PRN pain #20 tabs 08/13/24 ondansetron 4 mg disintegrating 4 mg PO Q6H nausea and vomiting 08/13/24 tablet #14 tabs loperamide 2 mg tablet 2 mg PO Q4H PRN loose stool #14 08/15/24 tabs ondansetron 4 mg disintegrating 4 mg PO Q6H PRN nausea and 08/15/24 tablet vomiting #14 tabs Allergies Allergy/AdvReac Type Severity Reaction Status Date / Time No Known Allergies Allergy Verified 08/15/24 01:22 Review of Systems Review of Systems: Constitutional : No Weight loss, complaining of fever and chills, No Night Sweats, No Fatigue, No Malaise ENT/Mouth : No Hearing loss, No Ear Pain, No Nasal Congestion, No Sinus Pain, No Hoarseness, No sore throat, No Rhinorrhea, No Swallowing Difficulty Eyes: No Eye Pain, No Swelling, No Redness, No Foreign Body, No Discharge, No Vision Changes Cardiovascular : No Chest Pain, No SOB, No Dyspnea on Exertion, No Orthopnea, No Edema, No Palpitations Respiratory : Complaining of dry cough, No Wheezing, No Smoke Exposure, No Dyspnea Gastrointestinal : Lying of nausea vomiting and diarrhea, No Constipation, No abdominal Pain, No Hematochezia, No Melena Genitourinary : no irregular bleeding, No Dysuria, No Urinary Frequency, No Hematuria, No Urinary Incontinence, No Urgency, No Flank Pain, No Urinary Flow Changes, No Hesitancy Musculoskeletal : No joint pain, No Myalgias, No Joint Swelling Skin : No Skin Lesions, No rash Neuro : No Weakness, No Numbness, No Paresthesias, No Loss of Consciousness, No Dizziness, No Headache Psych : No Anxiety/Panic, No Depression, No SI/HI/AH/VH, No Social Issues, Heme/Lymph: No Bruising, No Bleeding,No Lymphadenopathy Endocrine : No Polyuria, No Polydipsia, No Temperature Intolerance [facility] Past Medical History Medical History Horseshoe kidney Small bowel obstruction Surgical History History of esophagogastroduodenoscopy (EGD) Hx of kidney disease Social History Social History Household Members: None Household Members Other:: - 4 sons- (17-24) Unable to assess alcohol history related to: Unknown Alcohol intake: former Patient Tobacco Use Status: Never used Tobacco Second Hand Smoke Exposure: No Advance Directives: No Advance Directives Information Provided: No Advance Directives Date on File: 07/18/23 Do you have a plan to hurt others: No Plan Current occupational status: employed Current occupation: [employer] Physical Exam ED Vital Signs: Vital Signs - 24 hr 08/15/24 01:21 Temperature 100.1 F Pulse Rate 111 H Respiratory Rate 18 Blood Pressure 147/84 H Pulse Oximetry 98 Oxygen Delivery Method Room Air BMI result Body Mass Index 33.2 Const Other: Appearance: Alert. Oriented X3. No acute distress. Eyes: Pupils equal, round and reactive to light. ENT: Pharynx normal. Neck: Normal inspection. Neck supple. No lymph nodes noted. No crepitus CVS: Normal heart rate and rhythm. Pulses normal. Normal S1 and S2 Respiratory: No respiratory distress. Breath sounds normal. No Wheezing. Bilateral occasional rales, Abdomen: Soft and nontender. No rigidity. No distention. Skin: Skin warm and dry. Skin is flushed Normal skin turgor. Extremities: No lower extremity edema. No Lacerations. No Rash Neuro: Oriented X 3. No motor deficit. No sensory deficit. Moving all extremities. No slurred speech. CN 2 through 12 grossly intact Psych: calm, cooperative, normal affect Course Course Course Narrative: Complaining of headache, fever, patient has already been taking Tylenol and Motrin. Patient offered Toradol IM, patient agrees. Also, patient was given loperamide and metoclopramide. Chest x-ray pending Medications Administered Discontinued Medications Generic Name Dose Route Start Last Admin Trade Name Freq PRN Reason Stop Dose Admin Ketorolac Tromethamine 60 mg 08/15/24 03:04 08/15/24 03:41 Ketorolac Tromethamine 60 Mg/2 Ml Vial IM 08/15/24 03:05 60 mg ONCE ONE Administration Loperamide HCl 4 mg 08/15/24 03:27 08/15/24 03:41 Loperamide Hcl 2 Mg Capsule PO 08/15/24 03:28 4 mg ONCE ONE Administration Metoclopramide HCl 10 mg 08/15/24 03:04 08/15/24 03:41 Metoclopramide Hcl 10 Mg Tablet PO 08/15/24 03:05 10 mg ONCE ONE Administration Medical Decision Making Medical Decision Making [facility] Narrative: My interpretation of labs: Serology negative for influenza RSV or COVID. X-ray : No acute abnormality Patient's symptoms likely secondary to viral illness Differential Diagnosis Differential Diagnoses: The differential diagnosis associated with the presentation includes (As above) Lab Data Labs: Lab Results 08/15/24 Range/Units 01:40 Influenza Type A (PCR) NEGATIVE (Negative) Influenza Type B (PCR) NEGATIVE (Negative) RSV RNA Qual (PCR) NEGATIVE (Negative) SARS-CoV-2 RNA (RT-PCR) NEGATIVE (Negative) Independent Interpretation I performed an independent interpretation of an: Plain X-Ray Radiology Impression Discussion of test interpretation with radiology: I have reviewed the radiologist's reading. Radiologist Impression: The lungs are clear. Heart size is normal. No acute fracture. IMPRESSION: 1. No acute findings. Discharge Plan Discharge Clinical Impression: Acute viral syndrome, Nausea vomiting and diarrhea Patient Disposition: Home, Self-Care Instructions: Viral Syndrome (ED) Additional Instructions: Please follow-up with your primary care physician tomorrow. If you have any worsening or new symptoms, please return to the emergency room or call 911 Prescriptions: New ondansetron 4 mg tablet,disintegrating 4 mg PO Q6H PRN (Reason: nausea and vomiting) Qty: 14 0RF loperamide 2 mg tablet 2 mg PO Q4H PRN (Reason: loose stool) Qty: 14 0RF Rx Instructions: administer after each loose stool until symptoms controlled; do not exceed 8 mg per 24 hrs No Action pantoprazole 40 mg tablet,delayed release (DR/EC) 40 mg PO DAILY Qty: 30 6RF buprenorphine-naloxone [Suboxone] 8-2 mg film 1 strip sublingual BID ondansetron 4 mg tablet,disintegrating 4 mg PO Q6H Qty: 14 0RF acetaminophen 325 mg tablet 650 mg PO Q4H PRN (Reason: fever or pain) Qty: 30 0RF ibuprofen 600 mg tablet 600 mg PO Q6H PRN (Reason: pain) Qty: 20 0RF levofloxacin 500 mg tablet 500 mg PO DAILY 7 Days Qty: 7 0RF metronidazole 500 mg tablet 500 mg PO BID 7 Days Qty: 14 0RF Stand Alone Forms: Work/School Release Print Language: Upper Sorbian
[2024-08-15] MEDS: Ketorolac Tromethamine 60 MG/2 ML VIAL IM (03:41)
[2024-08-15] MEDS: Loperamide HCl 2 MG CAPSULE 4 MG PO (03:41)
[2024-08-15] MEDS: Metoclopramide HCl 10 MG TABLET PO (03:41)
[2024-08-15 05:37] VITALS: BP 141/75; PULSE 94; RESP 16; TEMP 37.1; O2SAT 96
[2024-08-15 05:38] VITALS: BP 141/75; PULSE 94; RESP 16; TEMP 37.1; O2SAT 96
== END 2024-08-15 05:38 | disposition home or self-care (01) ==
PROVIDERS: Emergency Provider Emergency Medicine; PCP Internal Medicine
DX: B34.9 Viral infection, unspecified (principal); R50.9 Fever, unspecified; R11.2 Nausea with vomiting, unspecified; R19.7 Diarrhea, unspecified; R51.9 Headache, unspecified; R05.9 Cough, unspecified; Z03.818 Encounter for observation for suspected exposure to other biological agents ruled out
CPT/HCPCS: 0241U; 71045; 96372; 99284; J1885

== ENCOUNTER → 2024-08-15 03:04 | Outpatient (BNV) | payer SELFPAY | PROVIDERS: Emergency Provider Emergency Medicine; PCP Internal Medicine; Visit Provider Radiology Diagnostic Radiology | DX: R05.9 Cough, unspecified (principal) | CPT/HCPCS: 71045 ==

== ENCOUNTER 2024-12-04 10:25 | Emergency (ER) | payer SELFPAY ==
--- NOTE | 2024-12-04 10:29 | ED_ITS ---
HPI - Nausea/Vomiting/Diarrhea General Chief complaint: Abdominal Pain Stated complaint: NAUSEA/WEAK Time Seen by Provider: 12/04/24 10:27 Source: patient and EMS Mode of arrival: EMS Limitations: no limitations History of Present Illness ED Provider: ZENOBIA CHAVIRA PA-C HPI Narrative: 44-year-old male with pmhx significant for alcoholic gastritis, horseshoe kidney presents to the ED via EMS for evaluation of nausea, vomiting, and abdominal pain which began this morning. Reports heavy ETOH consumption last night. When asked to quantify he states enough . Not forth coming with answers. Admits to diffuse abdominal pain and one episode of nonbloody vomiting this morning. Normal BM this morning - no diarrhea or constipation. No known sick contacts. Per EMS, POC on arrival 68. He was treated w/ D5, IVF and zofran en route. Related Data Home Medications ?Medication ?Instructions ?Recorded ?Confirmed buprenorphine 8 mg-naloxone 2 mg 1 strip sublingual BID 12/03/21 07/18/23 sublingual film (Suboxone) Previous Rx's ?Medication ?Instructions ?Recorded levofloxacin 500 mg tablet 500 mg PO DAILY 7 days #7 tabs 07/19/23 metronidazole 500 mg tablet 500 mg PO BID 7 days #14 tabs 07/19/23 pantoprazole 40 mg tablet,delayed 40 mg PO DAILY #30 tabs 02/06/24 release acetaminophen 325 mg tablet 650 mg (2 x 325 mg) PO Q4H PRN 08/13/24 fever or pain #30 tabs ibuprofen 600 mg tablet 600 mg PO Q6H PRN pain #20 tabs 08/13/24 ondansetron 4 mg disintegrating 4 mg PO Q6H nausea and vomiting 08/13/24 tablet #14 tabs loperamide 2 mg tablet 2 mg PO Q4H PRN loose stool #14 08/15/24 tabs ondansetron 4 mg disintegrating 4 mg PO Q6H PRN nausea and 08/15/24 tablet vomiting #14 tabs pantoprazole 40 mg tablet,delayed 40 mg PO DAILY 1 month #30 tabs 12/04/24 release sucralfate 1 gram tablet 1 g PO BID 4 weeks #56 tabs 12/04/24 Allergies Allergy/AdvReac Type Severity Reaction Status Date / Time No Known Allergies Allergy Verified 12/04/24 10:35 Review of Systems 2 Review of Systems: Yes all other systems are reviewed and are negative [facility] Past Medical History Attestation statement: The following information was validated with the patient. Source: old records reviewed and nursing notes reviewed Medical History Horseshoe kidney Small bowel obstruction Surgical History History of esophagogastroduodenoscopy (EGD) Hx of kidney disease Social History Social History Household Members: None Household Members Other:: - 4 sons- (17-24) Unable to assess alcohol history related to: Unknown Alcohol intake: former Patient Tobacco Use Status: Never used Tobacco Second Hand Smoke Exposure: No Advance Directives: No Advance Directives Information Provided: No Advance Directives Date on File: 07/18/23 Do you have a plan to hurt others: No Plan Current occupational status: employed Current occupation: [employer] Physical Exam 2 Vital Signs: Vital Signs: Last Vital Signs Temp 97.5 F 12/04/24 15:50 Pulse 67 12/04/24 15:50 Resp 18 12/04/24 15:50 BP 106/63 12/04/24 15:50 Pulse Ox 96 12/04/24 15:50 O2 Del Method Room Air 12/04/24 15:50 BMI result Body Mass Index 29.9 Vital signs stable General: NAD Skin: Warm, dry, intact. No rashes or lesions. Head: Normocephalic, atraumatic. EENT: Hearing is intact b/l. Conjunctiva clear. Sclera is anicteric. PERRLA. EOM intact. Moist mucous membranes.? Cardiac: Chest wall symmetric. RRR Lungs: Normal respiratory effort without accessory muscle use. CTA bilaterally Abdomen: soft, nondistended, diffusely tender to palpation more so in the epigastric region without guarding. No rebound tenderness. Active bowel sounds throughout. Back: No midline spinous or paraspinal tenderness. No step off deformity. Ext: Upper and lower extremities atraumatic, without tenderness, deformity, swelling or erythema Neuro: AOx3. Normal speech. Ambulating with steady gait. Course Course Course Narrative: CBC without leukocytosis. No anemia. H&H stable. Chemistry without acute electrolyte abnormality requiring intervention. BUN slightly elevated to 20, normal creatinine. Treated with IV fluids. Liver function at baseline. Lipase WNL. Unlikely pancreatitis. > on re-evaluation, patient reports significant improvement in symptoms w/ IV meds. He looks well. ambulating with steady gait to the bathroom. Vitals have remained stable. He is tolerating chris odilon in room. Will give him crackers and sandwich to further p.o. trial him. Patient's symptoms were likely secondary to alcoholic gastritis. Imaging not warranted at this time. Anticipate discharge home. > UA/UDS pending 1530 -- UA without infection. UDS positive for buprenorphine. tolerating PO. He has someone that will be driving him home today. Patient has remained stable throughout ED visit today. Discussed worrisome signs and symptoms and when to return to the ED. All questions answered at this time. Patient is agreeable with disposition and stable for discharge. Medications Administered Discontinued Medications Generic Name Dose Route Start Last Admin Trade Name Freq PRN Reason Stop Dose Admin Al Hydroxide/Mg Hydroxide 30 ml 12/04/24 10:39 12/04/24 11:10 Magnesium Hydrox/Alum Hydrox 30 Ml Oral.Susp PO 12/04/24 10:40 30 ml ONCE ONE Administration Belladonna Alkaloids/Phenobarbital 10 ml 12/04/24 10:39 12/04/24 11:10 Phenobarb/Hyoscy/Atropine/Scop 10 Ml Elixir PO 12/04/24 10:40 10 ml ONCE ONE Administration Sodium Chloride 1,000 mls @ 999 mls/hr 12/04/24 10:45 12/04/24 11:09 Ns IV 12/04/24 11:45 999 mls/hr .Q1H1M BRENDEN Administration Ondansetron HCl 4 mg 12/04/24 10:40 12/04/24 11:10 Ondansetron Odt 4 Mg Tab.Rapdis TRANSLINGU 12/04/24 10:41 4 mg ONCE ONE Administration Medical Decision Making Medical Decision Making [facility] Narrative: 44-year-old male with pmhx significant for alcoholic gastritis, horseshoe kidney presents to the ED via EMS for evaluation of nausea, vomiting, and abdominal pain which began this morning. vital signs stable, afebrile. he is nontoxic appearing and in NAD. abdomen is soft, nondistended, diffusely tender to palpation more so in the epigastric region without guarding. No rebound tenderness. Active bowel sounds throughout. Differential diagnosis includes anemia, electrolyte abnormality, dehydration, ETOH intoxication, hypoglycemia, biliary colic, gastroenteritis, gastritis, PUD, GERD, pancreatitis. Unlikely boerhaave syndrome. Abdominal exam without peritoneal signs. No evidence of acute abdomen at this time. Well appearing. Moderate suspicion for acute hepatobiliary disease (including acute cholecystitis). Less likely to represent perforated ulcer/ GI bleed, acute infectious processes (pneumonia, hepatitis, pyelonephritis), atypical appendicitis, vascular catastrophe, bowel obstruction or viscus perforation. Presentation not consistent with other acute, emergent causes of abdominal pain at this time. Plan: labs, UA, pain control, serial reassessment Differential Diagnosis Differential Diagnoses: The differential diagnosis associated with the presentation includes as above Admission/Observation not indicated. Lab Data MDM Lab Attestation statement: I reviewed the patient's lab results. as above. 12/04/24 11:21 12/04/24 11:21 Labs: Lab Results 12/04/24 12/04/24 Range/Units 11:21 14:19 WBC 6.8 (4.8-10.8) X10*3/uL RBC 4.93 (4.60-5.80) X10*6/uL Hgb 15.0 (14.0-18.0) g/dl Hct 44.9 (42.0-52.0) % MCV 91.1 (80.0-98.0) fL MCH 30.4 (27.0-33.0) pg MCHC 33.4 (31.0-36.0) g/dl RDW 12.9 (11.0-16.0) % Plt Count 262 (160-400) X10*3/uL MPV 8.7 L (9.4-12.4) fL Immature Gran % (Auto) 0.3 (0.0-0.4) % Neut % (Auto) 82.2 H (45-73) % Lymph % (Auto) 12.7 L (20-40) % [place] % (Auto) 4.4 (2-11) % Eos % (Auto) 0.0 (0-4) % Baso % (Auto) 0.4 (0-2) % Lymph # (Auto) 0.9 L (1.2-4.9) X10*3/uL [place] # (Auto) 0.3 (0.1-1.2) X10*3/uL Eos # (Auto) 0.0 (0.0-0.4) X10*3/uL Baso # (Auto) 0.0 (0.0-0.2) X10*3/uL Abs Immat Gran (auto) 0.02 (0.00-0.03) X10*3/uL Absolute Neuts (auto) 5.6 (2.0-8.3) x10*3/uL Absolute Nucleated RBC 0.000 (0.0-0.012) X10*3/uL Nucleated RBC % (auto) 0.0 (0.0-0.2) /100WBC Sodium 143 (135-145) mmol/L Potassium 4.5 D (3.3-5.1) mmol/L Chloride 106 (96-108) mmol/L Carbon Dioxide 24 (22-29) mmol/L Anion Gap 18 (12-20) BUN 20 H (9-16) mg/dL Creatinine 1.18 (0.5-1.4) mg/dL Estim Creat Clear Calc 83.9 Estimated GFR > 60 Random Glucose 89 (60-115) mg/dL Calcium 8.8 (8.4-10.2) mg/dL Magnesium 2.0 (1.6-2.6) mg/dL Total Bilirubin 0.4 (0.0-1.0) mg/dL Direct Bilirubin 0.2 (0.0-0.5) mg/dL AST 30 (5-37) U/L ALT 19 (0-40) U/L Alkaline Phosphatase 75 (39-117) U/L Total Protein 7.5 (6.5-8.0) g/dL Albumin 4.2 (3.5-5.0) g/dL Lipase 32 (8-78) U/L Urine Color Yellow Urine Appearance Clear Urine pH 5.0 (5.0-9.0) Ur Specific [place] 1.025 (1.005-1.025) Urine Protein Negative (Neg-Trace) mg/dL Urine Glucose (UA) 100 H (Negative) mg/dL Urine Ketones 15 (Negative) mg/dL Urine Blood Negative (Negative) Urine Nitrite Negative (Negative) Ur Leukocyte Esterase Negative (Negative) Urine Opiates Screen Not Detected (Not Detect) Ur Buprenorphine Scrn Positive H (Not Detect) ng/mL Ur Oxycodone Screen Not Detected (Not Detect) ng/mL Urine Methadone Screen Not Detected (Not Detect) ng/mL Urine Fentanyl Screen Not Detected (Not Detect) Ur Barbiturates Screen Not Detected (Not Detect) Ur Phencyclidine Scrn Not Detected (Not Detect) Ur Amphetamines Screen Not Detected (Not Detect) U Benzodiazepines Scrn Not Detected (Not Detect) Urine Cocaine Screen Not Detected (Not Detect) U Marijuana (THC) Screen Not Detected (Not Detect) Ethyl Alcohol 128 mg/dL Influenza Type A (PCR) NEGATIVE (Negative) Influenza Type B (PCR) NEGATIVE (Negative) RSV RNA Qual (PCR) NEGATIVE (Negative) SARS-CoV-2 RNA (RT-PCR) NEGATIVE (Negative) Independent Historian Clinical information obtained from an independent historian. History obtained from or confirmed by: EMS External Record Review External record reviewed: Inpatient record Chronic Conditions Patient?s care impacted by: Other (etoh gastritis) Social Determinants Patient?s care significantly limited by Social Determinants of Health including: Other Social Determinant of Health Critical Care Time Critical Care Time Critical Care Time: No Discharge Plan Discharge Clinical Impression: Alcoholic gastritis Patient Disposition: Home, Self-Care Instructions: Gastritis (ED) Additional Instructions: Your workup today is reassuring. You report improvement after IV fluids and medications today. Avoid alcohol use. I am sending pantoprazole and sucralfate to your pharmacy. Take these as prescribed. Follow up with your GI doctor. Return with new or worsening symptoms. In the case of an emergency call 911. Prescriptions: New pantoprazole 40 mg tablet,delayed release (DR/EC) 40 mg PO DAILY 30 Days Qty: 30 0RF sucralfate 1 gram tablet 1 g PO BID 28 Days Qty: 56 0RF No Action pantoprazole 40 mg tablet,delayed release (DR/EC) 40 mg PO DAILY Qty: 30 6RF buprenorphine-naloxone [Suboxone] 8-2 mg film 1 strip sublingual BID ondansetron 4 mg tablet,disintegrating 4 mg PO Q6H Qty: 14 0RF acetaminophen 325 mg tablet 650 mg PO Q4H PRN (Reason: fever or pain) Qty: 30 0RF ibuprofen 600 mg tablet 600 mg PO Q6H PRN (Reason: pain) Qty: 20 0RF ondansetron 4 mg tablet,disintegrating 4 mg PO Q6H PRN (Reason: nausea and vomiting) Qty: 14 0RF loperamide 2 mg tablet 2 mg PO Q4H PRN (Reason: loose stool) Qty: 14 0RF Rx Instructions: administer after each loose stool until symptoms controlled; do not exceed 8 mg per 24 hrs levofloxacin 500 mg tablet 500 mg PO DAILY 7 Days Qty: 7 0RF metronidazole 500 mg tablet 500 mg PO BID 7 Days Qty: 14 0RF Referrals: Darius Celis MD [Primary Care Provider] - Interventions: ED Discharge Assessment Last Done: 12/04/24 15:50 Discharge Date/Time: 12/04/24 15:51 Print Language: [place]
[2024-12-04 10:33] VITALS: BP 118/70; BP 123/78; PULSE 98; RESP 16; TEMP 36.1; O2SAT 95; O2SAT 98; BMI 29.9
[2024-12-04] MEDS: 0.9 % Sodium Chloride 1,000 ML 999 ML IV (11:09)
[2024-12-04] MEDS: PHENobarb/Hyoscy/Atropine/Scop 10 ML ELIXIR PO (11:10)
[2024-12-04] MEDS: Ondansetron ODT 4 MG TAB.RAPDIS TRANSLINGU (11:10)
[2024-12-04] MEDS: Magnesium Hydrox/Alum Hydrox 30 ML ORAL.SUSP PO (11:10)
[2024-12-04 11:13] VITALS: BP 114/73; PULSE 91; RESP 16; TEMP 36.3; O2SAT 96
--- NOTE | 2024-12-04 11:19 | PC.NURSE ---
Pt is a 44-year-old male with a PMH significant for GERD, alcoholic gastritis, horse shoe kidney and hx of opioid use disorder who presents to the ED with?mid absominal pain post alcohol use last night. Patient somnolent but arousable to speech. Lungs clear bilat. Respirations even and non-labored. Abdomen soft with positive bowel sounds. c/o mid abdominal pain. Positive pedal pulses with no edema.
[2024-12-04 11:27] LABS: MANUAL DIFF FLAG NO
[2024-12-04 11:28] LABS: Basophils Percent Auto 0.4 % (0-2); Hematocrit 44.9 % (42.0-52.0); Imm Gran Abs Auto 0.02 X10*3/uL (0.00-0.03); Imm Gran Pct Auto 0.3 % (0.0-0.4); Lymphocytes Absolute Auto 0.9 X10*3/uL (1.2-4.9); Lymphocytes Percent Auto 12.7 % (20-40); Mean Corpuscular HGB Conc 33.4 g/dl (31.0-36.0); Mean Corpuscular Hemoglobin 30.4 pg (27.0-33.0); Mean Corpuscular Volume 91.1 fL (80.0-98.0); Mean Platelet Volume 8.7 fL (9.4-12.4); Monocytes Absolute Auto 0.3 X10*3/uL (0.1-1.2); Monocytes Percent Auto 4.4 % (2-11); Neutrophils Absolute Auto 5.6 x10*3/uL (2.0-8.3); Neutrophils Percent Auto 82.2 % (45-73); Platelet Count 262 X10*3/uL (160-400); Red Blood Count 4.93 X10*6/uL (4.60-5.80); Red Cell Distribution Width 12.9 % (11.0-16.0); White Blood Count 6.8 X10*3/uL (4.8-10.8)
[2024-12-04 11:42] LABS: Alanine Aminotransferase 19 U/L (0-40); Albumin Level 4.2 g/dL (3.5-5.0); Alkaline Phosphatase 75 U/L (39-117); Anion Gap 18 (12-20); Aspartate Amino Transferase 30 U/L (5-37); Bilirubin Direct 0.2 mg/dL (0.0-0.5); Bilirubin Total 0.4 mg/dL (0.0-1.0); Blood Urea Nitrogen 20 mg/dL (9-16); Calcium 8.8 mg/dL (8.4-10.2); Carbon Dioxide 24 mmol/L (22-29); Chloride 106 mmol/L (96-108); Creatinine Clr Calc Pharmacy 83.9; Estimated Glomerular Filt Rate > 60; Ethanol 128 mg/dL; Glucose Random 89 mg/dL (60-115); Lipase 32 U/L (8-78); Potassium 4.5 mmol/L (3.3-5.1); Sodium 143 mmol/L (135-145); Total Protein 7.5 g/dL (6.5-8.0)
[2024-12-04 12:00] VITALS: BP 115/69; PULSE 94; RESP 16; TEMP 36.5; O2SAT 98
[2024-12-04 12:05] LABS: Influenza A PCR NEGATIVE (Negative); Influenza B PCR NEGATIVE (Negative); Resp Syncy Virus RNA Qual PCR NEGATIVE (Negative); SARS COV2 PCR INHOUSE NEGATIVE (Negative)
[2024-12-04 14:23] VITALS: BP 102/60; PULSE 89; RESP 16; TEMP 36.6; O2SAT 99
[2024-12-04 14:40] LABS: Appearance Urine Clear; Color Urine Yellow; Glucose Urine UA 100 mg/dL (Negative); Leukocyte Esterase Urine Negative (Negative); Nitrite Urine Negative (Negative); Specific Gravity - Urine 1.025 (1.005-1.025); Urine Blood Negative (Negative); Urine Ketones 15 mg/dL (Negative); Urine Protein Negative (Neg-Trace)
[2024-12-04 14:49] LABS: Amphetamine Screen Urine Not Detected (Not Detect); Barbiturates, Urine Not Detected (Not Detect); Benzodiazepines Screen Urine Not Detected (Not Detect); Buprenorphine Scr Positive (Not Detect); Cannabinoid Screen Urine Not Detected (Not Detect); Cocaine Screen Urine Not Detected (Not Detect); Fentanyl, urine Not Detected (Not Detect); Methadone Screen, Urine Not Detected (Not Detect); Opiate Screen Urine Not Detected (Not Detect); Oxycodone Screen Urine Not Detected (Not Detect); Phencyclidine Screen Urine Not Detected (Not Detect)
[2024-12-04 15:45] VITALS: BP 106/63; PULSE 67; RESP 18; TEMP 36.4; O2SAT 96
[2024-12-04 15:50] VITALS: BP 106/63; PULSE 67; RESP 18; TEMP 36.4; O2SAT 96
== END 2024-12-04 15:51 | disposition home or self-care (01) ==
PROVIDERS: Physician Assistant Medical; Emergency Provider Emergency Medicine; PCP Internal Medicine
DX: K29.20 Alcoholic gastritis without bleeding (principal); R10.2 Pelvic and perineal pain; R11.2 Nausea with vomiting, unspecified; Z51.81 Encounter for therapeutic drug level monitoring; Z79.899 Other long term (current) drug therapy; Z03.818 Encounter for observation for suspected exposure to other biological agents ruled out
CPT/HCPCS: 0241U; 80048; 80076; 80307; 81003; 83690; 83735; 85025; 99283; 99285

== ENCOUNTER 2024-12-22 04:45 | Emergency (ER) | payer SELFPAY ==
--- NOTE | ~2024-12-22 | CT_ITS ---
EXAMINATION: CT ABDOMEN PELVIS WITH IV CONTRAST HISTORY: epigastric pain COMPARISON: Comparison is made with the prior examination dated 06/18/2022. TECHNIQUE: CT scan of the abdomen and pelvis was performed following administration of 85 mL Omnipaque 350 using standard departmental protocol. Coronal and sagittal reformatted images were generated and reviewed. Oral contrast material was not administered at the request of the referring physician. This CT exam was performed with one or more of the following dose reduction techniques: automated exposure control, adjustment of the mA and/or kV according to patient size, use of iterative reconstruction technique. DLP: 557 mGy-cm FINDINGS: LOWER CHEST: The visualized lung bases are clear. There is no pleural effusion. CARDIOVASCULATURE: The heart is normal in size. There is no pericardial effusion. LIVER: The liver is normal in size and contour. No liver mass is identified. The hepatic and portal veins are patent. GALLBLADDER / BILE DUCTS: The gallbladder is unremarkable. There is no intra or extrahepatic biliary ductal dilatation. SPLEEN: The spleen is normal in size. No focal splenic lesion is identified. PANCREAS: The pancreas is unremarkable in appearance. ADRENAL GLANDS: Within normal limits. 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 Multiple layering calculi are noted in the left renal moiety measuring up to 5 mm in size. There is dilatation of the collecting system on the left without significant change. No hydroureter is seen. No renal masses are identified. LYMPH NODES: No abdominal or pelvic lymphadenopathy. VASCULATURE: The abdominal aorta is normal in caliber. MESENTERY/PERITONEUM: There is a small amount of free fluid around the liver. No masses. There is no free intraperitoneal gas. STOMACH: The stomach is distended with fluid. SMALL BOWEL: There are dilated loops of small bowel in the midabdomen, some of which demonstrate equalization of contents, consistent with stasis and likely obstruction. COLON: There is a large amount of stool in the colon. APPENDIX: The appendix is not seen, however no inflammatory changes are seen adjacent to the cecum. URINARY BLADDER/PELVIC ORGANS: The urinary bladder is unremarkable. There are calcifications of the prostate. BONES / SOFT TISSUES: No suspicious bony or soft tissue abnormalities. CT/CT abdomen pelvis w IV con IMPRESSION: 1. Findings suggestive of at least partial small bowel obstruction as described. Small amount of fluid around the liver. 2. Horseshoe kidney. Multiple calculi in the left renal moiety with dilatation of the collecting system and without hydroureter as seen previously. Electronically signed by: Jass Dooley MD 12/22/2024 11:43 AM EDT
[2024-12-22 05:03] VITALS: BP 139/88; PULSE 94; RESP 20; TEMP 36.4; O2SAT 98; BMI 30.4
--- OUTSIDE RECORDS SUMMARY | 2024-12-22 05:16 | XMS_ITS | Clinical Summary ---
Author Organization [employer] Address [address] [place] [address] [address] [place] [address] Care Team Providers Care Records Management Coordinator Name Role Phone Darius Celis MD Primary Care Provider [phone] Allergies No known active allergies Medications acetaminophen (Tylenol 8 Hour) 650 MG ER tablet Take 1 tablet by mouth in the morning and 1 tablet at noon and 1 tablet in the evening. 04/19/2021 Active cetirizine (ZyrTEC) 10 MG tablet Take 1 tablet by mouth. Every day 10/09/2020 Active ibuprofen 600 MG tablet take 1 tablet (600MG) by oral route 3 times with food 04/19/2021 Active pantoprazole (ProtoNix) 40 MG EC tablet Take 1 tablet by mouth in the morning. 05/21/2023 Active Buprenorphine HCl-Naloxone HCl (Suboxone) 8-2 MG SL filmIndications :Opioid type dependence, continuous (CMS/HCC) Place 2 Film under the tongue Once per day. Do not start before November 22, 2024. 56 Film 1 11/22/2024 Active Active Problems Problem Noted Date Diagnosed Date Folliculitis 06/17/2016 Opioid dependence, uncomplicated 03/03/2014 Encounters Date Type Department Care Team Description 12/13/2024 Telephone [facility] [address] [facility] [place] [address] Darius Celis MD Hospital Follow-up 11/22/2024 10:30 AM EDT Office Visit [facility] [address] [facility] [place] [phone] Jeromy Zamora MD Opioid type dependence, continuous ([facility]/HCC) (Primary Dx) 11/22/2024 Travel 11/16/2024 Refill [facility] [address] [place] [address] Arcelia Sneed RN Opioid type dependence, continuous (CMS/HCC) 09/27/2024 10:45 AM EST Office Visit [facility] [address] [place] [address] Jeromy Zamora MD Opioid dependence, uncomplicated ([facility]) (Primary Dx) 09/27/2024 Travel from Last 3 Months Immunizations Immunization Administration Dates Next Due Influenza injectable quadrivalent preservative f ree 04/21/2018 Influenza, seasonal, injectable, preservative fr ee 05/13/2022 Pfizer Covid-19 Vaccine 12+ 12/01/2020, Tdap 10/09/2020 Social History Tobacco Use Types Packs/Day Years Used Date Smoking Tobacco: Never Smokeless Tobacco: Never Tobacco Cessation:Counseling Given: No Depression Answer Date Recorded Patient Health Questionnaire-9 Score 2 07/09/2022 Depression Answer Date Recorded Patient Health Questionnaire-2 Score 0 07/09/2022 Sex and Gender Information Value Date Recorded Sex Assigned at Male 05/27/2022 10:17 AM EDT Legal Sex Male 10:17 AM EDT Gender Identity Male 05/27/2022 10:17 AM EDT Sexual Orientation Straight 05/27/2022 10 :17 AM EDT Last Filed Vital Signs Vital Sign Reading Time Taken Comments Blood Pressure 128/92 08/01/2023 9:50 AM EST Pulse 88 08/01/2023 9:50 AM EST Temperature 36.3 ??C (97.3 ??F) 08/01/2023 9:50 AM ES T Respiratory Rate 18 08/01/2023 9:50 AM EST Oxygen Saturation 98% 08/01/2023 9:50 AM EST Inhaled Oxygen Concentration - - Weight 98 kg (216 lb) 08/01/2023 9:50 AM EST Height 168.9 cm (5' 6.5 ) 08/01/2023 9:50 AM EST Body Mass Index 34.34 08/01/2023 9:50 AM EST Plan of Treatment Upcoming Encounters Date Type Department Care Team (Late st Contact Info) Description 01/17/2025 9:45 AM EDT Clinical Support [facility] [address] [place] [address] Arcelia Sneed, ADRIEN Health Maintenance Due Date Last Done Comments HIV Screening 1980 Lipid Panel 1980 SDOH Screening 1980 Disability Screening 1980 Alcohol/Substance Use Screening 1992 Family Planning (PISQ) 1995 Hepatitis C Screening 1998 Hepatitis B Vaccines (1 of 3 - 19+ 3-dose series) 1999 Depression Screening 07/09/2023 07/09/2022, 07/09/2022 COVID-19 Vaccine (3 - 2023-2 5 season) 2024 12/01/2020, 11/10/2020 Influenza Vaccine (#1) 2024 3, 05/13/2022, 04/21/2018 Tobacco Screening 08/01/2024 08/01/2023 Zoster Vaccines (1 of 2) 2030 DTaP/Tdap/Td Vaccines (3 - T d or Tdap) 10/09/2030 10/09/2020, 03/30/2013 RSV Patients and Patients Aged 60 years or older (1 - 1-dose 75+ series) 2055 HIB Vaccines Aged Out No longer eligi ble based on patient's age to complete this topic HPV Vaccines Aged Out No longer eligi ble based on patient's age to complete this topic Hepatitis A Vaccines Aged Out No long er eligible based on patient's age to complete this topic IPV Vaccines Aged Out No longer eligi ble based on patient's age to complete this topic Meningococcal B Vaccine Aged Out No l onger eligible based on patient's age to complete this topic Meningococcal Vaccine Aged Out No julieth tyra eligible based on patient's age to complete this topic Pneumococcal Vaccine: Pediatrics (0 to 5 Years) and At-Risk Patients (6 to 49) Years) Aged Out No longer eligible b ased on patient's age to complete this topic RSV under 20 months Aged Out No longe r eligible based on patient's age to complete this topic Rotavirus Vaccines Aged Out No longer eligible based on patient's age to complete this topic Procedures Procedure Name Priority Date/Time Associated Diagnosis Comments DRUG MONITOR, PANEL 1, SCREEN, URINE Routine 12/04/2024 2:19 PM EDT URINALYSIS WITH REFLEX MICROSCOPIC Routine 12/04/2024 2:19 PM EDT POCT GEOAVNY-14 URINE DRUG SCREEN Routine 11/22/2024 9:56 AM EDT Opioid type dependence, continuous (CMS/HCC) POCT GEOVANY-14 URINE DRUG SCREEN Routine 09/27/2024 11:02 AM EST Opioid dependence, uncomplicated (CMS/HCC) from Last 3 Months Results * (ABNORMAL) Drug Monitoring, Panel 1, Screen, Urine (12/04/2024 2:19 PM EDT) Opiate Screen Urine Not Detected Not Detect [facility] Comment:Opiate cut-off is 30 0 ng/mL.Positive results are unconfirmed and should not be used fornon-medical purposes. Barbiturates, Urine Not Detected Not Detect [facility] Comment:Barbiturate cut-off is 200 ng/mL.Positive results are unconfirmed and should not be used fornon-medical purposes. Phencyclidine Screen Urine Not Detected Not Detect [facility] Comment:Phencyclidine cut-of f is 25 ng/mL.Positive results are unconfirmed and should not be used fornon-medical purposes. Amphetamine Screen Urine Not Detected Not Detect [facility] Comment:Amphetamine cut-off is 1000 ng/mL.Positive results are unconfirmed and should not be used fornon-medical purposes. Benzodiazepines Screen Urine Not Detected Not Detect [facility] Comment:Benzodiazepine cut-o ff is 200 ng/mL.Positive results are unconfirmed and should not be used fornon-medical purposes. Cocaine Screen Urine Not Detected Not Detect [facility] Comment:Cocaine cut-off is 3 00 ng/mL.Positive results are unconfirmed and should not be used fornon-medical purposes. Cannabinoid Screen Urine Not Detected Not Detect [facility] Comment:Cannabinoid cut-off is 50 ng/mL.Positive results are unconfirmed and should not be used fornon-medical purposes. Methadone Screen, Urine Not Detected Not Detect ng/mL [facility] Comment:Methadone cut-off is 300 ng/mL.Positive results are unconfirmed and should not be used fornon-medical purposes. FENTANYL URINE Not Detected Not Detect [facility] Comment:Fentanyl cut-off is 1 ng/mL.Positive results are unconfirmed and should not be used fornon-medical purposes. Oxycodone Urine Screen Not Detected Not Detect ng/mL [facility] Comment:Oxycodone cut-off is 100 ng/mL.Positive results are unconfirmed and should not be used fornon-medical purposes. Buprenorphine Screen Positive(A) Not Detect ng/mL [facility] Comment:Buprenorphine cut-of f is 5 ng/mL.Positive results are unconfirmed and should not be used fornon-medical purposes. 12/04/2024 2:19 PM EDT 12/04/2024 2:35 PM EDT us Generic External Data Provider LAB URINE ORDERAB LES Final Result [facility] [address] [place] [phone] * (ABNORMAL) Urinalysis w/reflex microscopic (12/04/2024 2:19 PM EDT) Color Urine Yellow [facility] Appearance Urine Clear [facility] PH 5.0 5.0 - 9.0 [facility] Glucose Urine UA 100(A) Negative mg/dL [facility] Urine Blood Negative Negative [facility] Specific Fiatt - Urine 1.025 1.005 - 1.025 [facility] Urine Protein Negative Neg-Trace mg/dL [facility] Urine Ketones 15 Negative mg/dL [facility] Nitrite Urine Negative Negative [facility] Leukocyte Esterase Urine Negative Negative [facility] 12/04/2024 2:19 PM EDT 12/04/2024 2:35 PM EDT Narrative [facility] - 12/04/2024 2:42 PM EDT Urine, Clean Catch us Generic External Data Provider LAB URINE ORDERAB LES Final Result [facility] [address] [place] [address] [phone] * POCT GEOVANY-14 Urine Drug Screen (11/22/2024 9:56 AM EDT) Only the most recent of2 resultswithin the time period is included. THC Negative Cocaine Screen, Urine Negative Opiate Screen, Urine Negative Methamphetamine Screen Urine Negative Amphetamine Screen, Urine Negative Benzodiazepines Screen, Urine Negative Barbiturate Screen, Urine Negative Methadone Screen, Urine Negative Buprenophine Screen, Urine Positive TCA, Urine Negative MDMA Urine Negative ng/mL Oxycodone Screen, Urine Negative Phencyclidine (PCP), Urine Negative Fentanyl, Urine Negative Urine Urine specimen obtained by clean catch procedure / Unknown 11/22/2024 9:56 AM EDT us Jeromy Zamora MD POINT OF CARE TEST ENTER/EDIT OR DERABLES Final Result from Last 3 Months Care Teams Records Management Coordinator Relationship Specialty Start Date End Date Darius Celis MD [address] [place] [phone] PCP - General Internal Medicine 08/27/13
[2024-12-22 05:20] LABS: MANUAL DIFF FLAG NO
[2024-12-22 05:25] LABS: Basophils Percent Auto 0.2 % (0-2); Eosinophils Absolute Auto 0.1 X10*3/uL (0.0-0.4); Hematocrit 44.7 % (42.0-52.0); Hemoglobin 14.9 g/dl (14.0-18.0); Imm Gran Abs Auto 0.02 X10*3/uL (0.00-0.03); Imm Gran Pct Auto 0.3 % (0.0-0.4); Lymphocytes Absolute Auto 1.5 X10*3/uL (1.2-4.9); Lymphocytes Percent Auto 23.5 % (20-40); Mean Corpuscular HGB Conc 33.3 g/dl (31.0-36.0); Mean Corpuscular Hemoglobin 30.2 pg (27.0-33.0); Mean Corpuscular Volume 90.5 fL (80.0-98.0); Mean Platelet Volume 8.5 fL (9.4-12.4); Monocytes Absolute Auto 0.4 X10*3/uL (0.1-1.2); Monocytes Percent Auto 6.9 % (2-11); Neutrophils Absolute Auto 4.2 x10*3/uL (2.0-8.3); Neutrophils Percent Auto 68.1 % (45-73); Platelet Count 282 X10*3/uL (160-400); Red Blood Count 4.94 X10*6/uL (4.60-5.80); Red Cell Distribution Width 12.5 % (11.0-16.0); White Blood Count 6.2 X10*3/uL (4.8-10.8)
[2024-12-22 05:34] LABS: Alanine Aminotransferase 15 U/L (0-40); Albumin Level 4.1 g/dL (3.5-5.0); Alkaline Phosphatase 64 U/L (39-117); Anion Gap 11 (12-20); Aspartate Amino Transferase 29 U/L (5-37); Bilirubin Direct 0.1 mg/dL (0.0-0.5); Bilirubin Total 0.4 mg/dL (0.0-1.0); Blood Urea Nitrogen 12 mg/dL (9-16); Calcium 9.2 mg/dL (8.4-10.2); Carbon Dioxide 28 mmol/L (22-29); Chloride 104 mmol/L (96-108); Creatinine Clr Calc Pharmacy 100.8; Estimated Glomerular Filt Rate > 60; Glucose Random 90 mg/dL (60-115); Lipase 20 U/L (8-78); Potassium 4.1 mmol/L (3.3-5.1); Sodium 139 mmol/L (135-145); Total Protein 7.3 g/dL (6.5-8.0)
[2024-12-22 05:57] LABS: Influenza A PCR NEGATIVE (Negative); Influenza B PCR NEGATIVE (Negative); Resp Syncy Virus RNA Qual PCR NEGATIVE (Negative); SARS COV2 PCR INHOUSE NEGATIVE (Negative)
[2024-12-22 07:27] VITALS: BP 129/78; PULSE 87; RESP 18; TEMP 36.8; O2SAT 99
--- NOTE | 2024-12-22 08:37 | ED.GENADULT ---
HPI - General Adult General Chief complaint: Abdominal Pain Stated complaint: Abd pain Time Seen by Provider: 12/22/24 07:57 Source: patient Mode of arrival: ambulatory Limitations: no limitations History of Present Illness HPI narrative: This is a 44-year-old man with a past medical history of alcoholic gastritis, horseshoe kidney, history of opioid use, GERD evaluation of epigastric pain. Patient reports gradual onset epigastric pain yesterday evening after eating some fruit. She states no radiation of his pain or associated back pain. He states no associated nausea, vomiting or diarrhea. Patient states previous history of drinking alcohol heavily, but states that he drinks alcohol infrequently now and socially. He states that his last drink of alcohol was several days ago. He states no urinary symptoms or changes in bowel habits. He states passing flatus. He states having a regular bowel movement 1 day prior to presentation. He states no bloody stools. Related Data Home Medications ?Medication ?Instructions ?Recorded ?Confirmed buprenorphine 8 mg-naloxone 2 mg 1 strip sublingual BID 12/03/21 07/18/23 sublingual film (Suboxone) Previous Rx's ?Medication ?Instructions ?Recorded levofloxacin 500 mg tablet 500 mg PO DAILY 7 days #7 tabs 07/19/23 metronidazole 500 mg tablet 500 mg PO BID 7 days #14 tabs 07/19/23 pantoprazole 40 mg tablet,delayed 40 mg PO DAILY #30 tabs 02/06/24 release acetaminophen 325 mg tablet 650 mg (2 x 325 mg) PO Q4H PRN 08/13/24 fever or pain #30 tabs ibuprofen 600 mg tablet 600 mg PO Q6H PRN pain #20 tabs 08/13/24 ondansetron 4 mg disintegrating 4 mg PO Q6H nausea and vomiting 08/13/24 tablet #14 tabs loperamide 2 mg tablet 2 mg PO Q4H PRN loose stool #14 08/15/24 tabs ondansetron 4 mg disintegrating 4 mg PO Q6H PRN nausea and 08/15/24 tablet vomiting #14 tabs pantoprazole 40 mg tablet,delayed 40 mg PO DAILY 1 month #30 tabs 12/04/24 release sucralfate 1 gram tablet 1 g PO BID 4 weeks #56 tabs 12/04/24 famotidine 20 mg tablet (Pepcid) 20 mg PO DAILY 30 days #30 tabs 12/22/24 sucralfate 100 mg/mL oral 10 ml PO BID 14 days #280 mL 12/22/24 suspension Allergies Allergy/AdvReac Type Severity Reaction Status Date / Time No Known Allergies Allergy Verified 12/22/24 05:05 Review of Systems Review of Systems: ROS as per HPI [facility] Past Medical History Medical History Horseshoe kidney Small bowel obstruction Surgical History History of esophagogastroduodenoscopy (EGD) Hx of kidney disease Social History Social History Household Members: None Household Members Other:: - 4 sons- (17-24) Unable to assess alcohol history related to: Unknown Alcohol intake: former Patient Tobacco Use Status: Never used Tobacco Second Hand Smoke Exposure: No Advance Directives: No Advance Directives Information Provided: No Advance Directives Date on File: 07/18/23 Do you have a plan to hurt others: No Plan Current occupational status: employed Current occupation: [employer] Physical Exam ED Vital Signs: Vital Signs - 24 hr 12/22/24 05:03 12/22/24 07:27 Temperature 97.6 F 98.3 F Pulse Rate 94 87 Respiratory Rate 20 18 Blood Pressure 139/88 129/78 Pulse Oximetry 98 99 Oxygen Delivery Method Room Air Room Air BMI result Body Mass Index 30.4 Gen: NAD, AOx3 HEENT: NCAT, EOMI, normal conjunctiva CV: RRR Pulm: CTAB, no increased work of breathing GI: Soft, + epigastric tenderness to palpation, no focal rebound, guarding or rigidity, negative Duncan Merrill and colon sign Neuro: Grossly non focal Medical Decision Making Medical Decision Making MDM Narrative: Differential diagnosis includes, but is not limited to gastritis, duodenitis, pancreatitis. Patient is afebrile and hemodynamically stable on room air. Exam is benign and reassuring albeit with mild epigastric tenderness to palpation. I reviewed the patient's labs as below. Given reassuring labs, history and abdominal examination, suspect that this is likely gastritis and/or duodenitis. Patient has tolerated oral intake, is having regular bowel movements and passing flatus so I have low clinical suspicion for bowel obstruction. The patient is treated supportively with famotidine, viscous lidocaine, omeprazole and sucralfate. On re-examination, patient is well-appearing and in no acute distress. ?Patient states symptoms have improved. ?There is no indication for further emergent evaluation in this otherwise well-appearing patient as above. ?Patient is provided written and verbal instructions, educational materials, recommendations for outpatient follow-up with Gastroenterology, prescription for sucralfate and famotidine,, strict return precautions and teach back is performed. ?Patient states understanding and agreement with plan of care. ?Patient is discharged home in stable and improved condition. Admission/Observation Consideration of admission/observation: Escalation of care including admission/observation considered Lab Data MDM Lab Attestation statement: I reviewed the patient's lab results. CBC is unremarkable with no cell line derangements, metabolic panel reassuring with no evidence of any significant electrolyte derangement, acute kidney injury, hyperbilirubinemia to suggest status or choledocholithiasis, lipase is within normal limits pointing away from acute pancreatitis and further patient has no radiation of his abdominal pain to his back to suggest acute pancreatitis 12/22/24 05:16 12/22/24 05:16 Labs: Lab Results 12/22/24 Range/Units 05:16 WBC 6.2 (4.8-10.8) X10*3/uL RBC 4.94 (4.60-5.80) X10*6/uL Hgb 14.9 (14.0-18.0) g/dl Hct 44.7 (42.0-52.0) % MCV 90.5 (80.0-98.0) fL MCH 30.2 (27.0-33.0) pg MCHC 33.3 (31.0-36.0) g/dl RDW 12.5 (11.0-16.0) % Plt Count 282 (160-400) X10*3/uL MPV 8.5 L (9.4-12.4) fL Immature Gran % (Auto) 0.3 (0.0-0.4) % Neut % (Auto) 68.1 (45-73) % Lymph % (Auto) 23.5 (20-40) % Winkler % (Auto) 6.9 (2-11) % Eos % (Auto) 1.0 (0-4) % Baso % (Auto) 0.2 (0-2) % Lymph # (Auto) 1.5 (1.2-4.9) X10*3/uL Winkler # (Auto) 0.4 (0.1-1.2) X10*3/uL Eos # (Auto) 0.1 (0.0-0.4) X10*3/uL Baso # (Auto) 0.0 (0.0-0.2) X10*3/uL Abs Immat Gran (auto) 0.02 (0.00-0.03) X10*3/uL Absolute Neuts (auto) 4.2 (2.0-8.3) x10*3/uL Absolute Nucleated RBC 0.000 (0.0-0.012) X10*3/uL Nucleated RBC % (auto) 0.0 (0.0-0.2) /100WBC Sodium 139 (135-145) mmol/L Potassium 4.1 (3.3-5.1) mmol/L Chloride 104 (96-108) mmol/L Carbon Dioxide 28 (22-29) mmol/L Anion Gap 11 L (12-20) BUN 12 (9-16) mg/dL Creatinine 0.99 (0.5-1.4) mg/dL Estim Creat Clear Calc 100.8 Estimated GFR > 60 Random Glucose 90 (60-115) mg/dL Calcium 9.2 (8.4-10.2) mg/dL Total Bilirubin 0.4 (0.0-1.0) mg/dL Direct Bilirubin 0.1 (0.0-0.5) mg/dL AST 29 (5-37) U/L ALT 15 (0-40) U/L Alkaline Phosphatase 64 (39-117) U/L Total Protein 7.3 (6.5-8.0) g/dL Albumin 4.1 (3.5-5.0) g/dL Lipase 20 (8-78) U/L Influenza Type A (PCR) NEGATIVE (Negative) Influenza Type B (PCR) NEGATIVE (Negative) RSV RNA Qual (PCR) NEGATIVE (Negative) SARS-CoV-2 RNA (RT-PCR) NEGATIVE (Negative) Discharge Plan Discharge Clinical Impression: Abdominal pain Patient Disposition: Home, Self-Care Additional Instructions: You were seen and evaluated in the emergency room. Your emergency room evaluation including blood work and examination were reassuring. You tested negative for COVID-19, influenza and RSV. You were treated with stomach acid reducing medications. You are given a prescription for a stomach acid reducing medication this directed. Please continue taking your pantoprazole as previously directed. You were also given a prescription for sucralfate to coat your stomach lining. Please take as directed until completed. 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 Returns to emergency with any new concerns or symptoms. Prescriptions: New famotidine [Pepcid] 20 mg tablet 20 mg PO DAILY 30 Days Qty: 30 0RF sucralfate 100 mg/mL suspension 10 ml PO BID 14 Days Qty: 280 0RF No Action pantoprazole 40 mg tablet,delayed release (DR/EC) 40 mg PO DAILY Qty: 30 6RF buprenorphine-naloxone [Suboxone] 8-2 mg film 1 strip sublingual BID ondansetron 4 mg tablet,disintegrating 4 mg PO Q6H Qty: 14 0RF acetaminophen 325 mg tablet 650 mg PO Q4H PRN (Reason: fever or pain) Qty: 30 0RF ibuprofen 600 mg tablet 600 mg PO Q6H PRN (Reason: pain) Qty: 20 0RF ondansetron 4 mg tablet,disintegrating 4 mg PO Q6H PRN (Reason: nausea and vomiting) Qty: 14 0RF loperamide 2 mg tablet 2 mg PO Q4H PRN (Reason: loose stool) Qty: 14 0RF Rx Instructions: administer after each loose stool until symptoms controlled; do not exceed 8 mg per 24 hrs levofloxacin 500 mg tablet 500 mg PO DAILY 7 Days Qty: 7 0RF metronidazole 500 mg tablet 500 mg PO BID 7 Days Qty: 14 0RF pantoprazole 40 mg tablet,delayed release (DR/EC) 40 mg PO DAILY 30 Days Qty: 30 0RF sucralfate 1 gram tablet 1 g PO BID 28 Days Qty: 56 0RF Referrals: [facility] [Provider Group] Print Language: Swazi
[2024-12-22] MEDS: Omeprazole 40 MG CAPSULE.DR PO (09:12)
[2024-12-22] MEDS: Famotidine 20 MG TABLET PO (09:12)
[2024-12-22] MEDS: Sucralfate Oral Suspension 1 GM/10 ML ORAL.SUSP PO (09:13)
[2024-12-22] MEDS: Lidocaine HCl Viscous 2 % 15 ML SOLUTION MUCOUS MEM (09:13)
[2024-12-22 09:48] LABS: Glucose, Whole Blood 84 mg/dL (60-115)
--- NOTE | 2024-12-22 10:09 | PC.NURSE ---
Pt uncomfortable with discharge. dr yun notified, he will speak to patient.
[2024-12-22] MEDS: ondansetron HCL 4 MG/2 ML VIAL IVPUSH (10:52)
[2024-12-22] MEDS: Morphine Sulfate 4 MG/ML CARTRIDGE 6 MG IVPUSH (10:52)
[2024-12-22] MEDS: 0.9 % Sodium Chloride 1,000 ML 999 ML IV (10:52)
[2024-12-22 11:01] VITALS: BP 128/85; PULSE 78; RESP 16; O2SAT 99
[2024-12-22 11:02] VITALS: BP 125/80; PULSE 89; RESP 18; TEMP 37.3; O2SAT 97
[2024-12-22] MEDS: iohexoL 350 MG/ML 100 ML INFUS..BTL IV (11:14)
[2024-12-22 12:00] VITALS: BP 133/82; PULSE 83; RESP 17; TEMP 36.6; O2SAT 99
[2024-12-22 12:52] VITALS: BP 133/82; PULSE 83; RESP 18; TEMP 36.6; O2SAT 99
== END 2024-12-22 12:53 | disposition home or self-care (01) ==
PROVIDERS: Emergency Provider Emergency Medicine; PCP Internal Medicine
DX: R10.13 Epigastric pain (principal); K56.609 Unspecified intestinal obstruction, unspecified as to partial versus complete obstruction; Q63.1 Lobulated, fused and horseshoe kidney; F11.20 Opioid dependence, uncomplicated; Z03.818 Encounter for observation for suspected exposure to other biological agents ruled out
CPT/HCPCS: 0241U; 74177; 80053; 82248; 82947; 83690; 85025; 96361; 96374; 96375; 99284; 99285; J2270; J2405; Q9967

== ENCOUNTER → 2024-12-22 10:09 | Outpatient (BNV) | payer MEDICAID, SELFPAY | PROVIDERS: Emergency Provider Emergency Medicine; PCP Internal Medicine; Visit Provider Radiology Diagnostic Radiology | DX: Q63.1 Lobulated, fused and horseshoe kidney (principal); R18.8 Other ascites | CPT/HCPCS: 74177 ==

== ENCOUNTER 2024-12-23 02:34 | Inpatient (IN) | payer SELFPAY ==
[2024-12-23] VITALS (8 sets, daily range): BP systolic 118–137; BP diastolic 69–81; PULSE 77–97; RESP 14–20; TEMP 36.5–36.9; O2SAT 97–100; BMI 30.4; BMI 31.4
--- NOTE | ~2024-12-23 | CT_ITS ---
CLINICAL HISTORY: worsening abd pain, no IV , just PO contrast pls CT abdomen and pelvis without contrast Comparison: CT/PA/SR - CT ABDOMEN PELVIS W IV CON - 12/22/24 11:12 EDT Findings: The lung bases are clear. Vicariously excreted contrast within the gallbladder. The liver, spleen, gallbladder, adrenal glands and kidneys demonstrate no acute process. Horseshoe kidney with mild but decreased calyceal dilation on the left. Nonobstructing left-sided stones appear unchanged. Increased small bowel dilation. Enteric contrast is seen opacifying the stomach and proximal nondilated bowel. Transition point appears to be within the pelvis just to the right of midline. The distal ileum is completely decompressed. Unremarkable colon. Appendix is nondilated. Small volume free fluid. Bladder and prostate demonstrate no acute findings. Excreted contrast within the bladder from the patient's recent prior CT. No drainable fluid collections. No pathologically enlarged lymph nodes or vascular dilation. No acute osseous findings. IMPRESSION: Worsening small bowel obstruction with transition point appearing to be in the right lower quadrant. No pneumatosis. Small volume ascites. This document has been electronically signed by: Alexandra Bishop MD on 12/23/2024 07:17:18
--- OUTSIDE RECORDS SUMMARY | 2024-12-23 03:04 | XMS_ITS | Clinical Summary ---
Author Organization [employer] Address [address] [place] [address] 7[address] [place] [address] Care Team Providers Care Section Supervisor Name Role Phone Darius Celis MD Primary Care Provider [phone] Allergies No known active allergies Medications acetaminophen [...] Encounters Date Type Department Care Team Description 12/22/2024 Orders Only [facility] External Provider, [facility] 12/13/2024 Telephone [facility] [address] [place] [address] Darius Celis MD Hospital Follow-up 11/22/2024 10:30 AM EDT Office Visit [facility] [address] [place] [address] Jeromy Zamora MD Opioid type dependence, continuous (CMS/HCC) (Primary Dx) 11/22/2024 Travel 11/16/2024 Refill [facility] [address] [place] [address] Arcelia Sneed RN Opioid type dependence, continuous (CMS/HCC) 09/27/2024 10:45 AM EST Office Visit [facility] [address] [place] [address] Jeromy Zamora MD Opioid dependence, uncomplicated (CMS/HCC) (Primary Dx) 09/27/2024 Travel from Last 3 [...] Description 01/17/2025 9:45 AM EDT Clinical Support [facility] [address] [place] [address] Arcelia Sneed, ADRIEN Health Maintenance Due Date [...] Procedure Name Priority Date/Time Associated Diagnosis Comments CT ABDOMEN PELVIS W CONTRAST Routine 12/22/2024 10:09 AM EDT GLUCOSE, WHOLE BLOOD Routine 12/22/2024 9:44 AM EDT LIPASE Routine 12/22/2024 5:16 AM EDT HEPATIC FUNCTION PANEL Routine 12/22/2024 5:16 AM EDT COMPREHENSIVE METABOLIC PANEL Routine 12/22/2024 5:16 AM EDT CBC WITH AUTO DIFFERENTIAL Routine 12/22/2024 5:16 AM EDT SARS COV2/INFLUENZA A/B AND RSV RNA QL NAAT Routine 12/22/2024 5:16 AM EDT DRUG MONITOR, PANEL 1, SCREEN, URINE Routine 12/04/2024 2:19 PM EDT URINALYSIS WITH REFLEX MICROSCOPIC Routine 12/04/2024 2:19 PM EDT POCT GEOVANY-14 URINE DRUG SCREEN Routine 11/22/2024 9:56 AM EDT Opioid type dependence, continuous (CMS/HCC) POCT GEOVANY-14 URINE DRUG SCREEN Routine 09/27/2024 11:02 AM EST Opioid dependence, uncomplicated (CMS/HCC) from Last 3 Months Results * CT Abdomen Pelvis w/ Contrast (12/22/2024 10:09 AM EDT) Anatomical Region Laterality Modality Body, Pelvis, Abdomen Computed T omography 12/22/2024 10:0 9 AM EDT Narrative 12/22/2024 11:46 AM EDT ? [facility] ?[address] ?[place] [address] ? CT Scan Report ? Signed with Addenda ? Patient: James,Richmond ?MR#: [id number] ?? 58 ? : 1980 ?Acct:[id number] ? Age/Sex: 44 / M ?ADM Date: 12/22/24 ? Loc: HO.ED ? Attending Dr: ? Ordering Physician: Tam Hendrix MD ?? Date of Service: 12/22/24 ?? Procedure(s): CT abdomen pelvis w IV con ?? Accession Number(s): [id number] ? cc: Darius Celis MD; Tam Hendrix MD ? Report Number: ?? [id number]: Total DLP = ?0.00 mGy-cm ?ADDENDUM ? ADDENDUM #1 ? The line in the body of the report regarding the small bowel should ?? read as follows: ? SMALL BOWEL: ?? There are dilated loops of small bowel in the ?? midabdomen, some of which demonstrate fecalization of contents, ?? consistent with stasis and likely obstruction. ? Electronically signed by: ??Jass Dooley MD ??12/22/2024 12:20 PM EDT ?? RP ? Addendum Dictated By: ?Jass Dooley MD ? Addendum Signed By: ? <Electronically signed by Jass Dooley MD in OV> ?12/22/24 1220 ?? Addendum Cosigned By: ? DD/ ? TD/TT: 12/22/24 ? EXAMINATION: ??CT ABDOMEN PELVIS WITH IV CONTRAST ? HISTORY: epigastric pain ? COMPARISON: Comparison is made with the prior examination dated ?? 06/18/2022. ? TECHNIQUE: CT scan of the abdomen and pelvis was performed following ?? administration of 85 mL Omnipaque 350 using standard departmental ?? protocol. Coronal and sagittal reformatted images were generated and ?? reviewed. ??Oral contrast material was not administered at the request ?? of the referring physician. ? This CT exam was performed with one or more of the following dose ?? reduction techniques: automated exposure control, adjustment of the mA ?? and/or kV according to patient size, use of iterative reconstruction ?? technique. ? DLP: 557 mGy-cm ? FINDINGS: ? LOWER CHEST: The visualized lung bases are clear. There is no pleural ?? effusion. ? CARDIOVASCULATURE: The heart is normal in size. ??There is no ?? pericardial effusion. ? LIVER: ??The liver is normal in size and contour. ??No liver mass is ?? identified. ??The hepatic and portal veins are patent. ? GALLBLADDER / BILE DUCTS: ??The gallbladder is unremarkable. There is no ?? intra or extrahepatic biliary ductal dilatation. ? SPLEEN: The spleen is normal in size. No focal splenic lesion is ?? identified. ? PANCREAS: The pancreas is unremarkable in appearance. ? ADRENAL GLANDS: Within normal limits. ? 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 Multiple ?? layering calculi are noted in the left renal moiety measuring up to 5 ?? mm in size. There is dilatation of the collecting system on the left ?? without significant change. No hydroureter is seen. ??No renal masses ?? are identified. ? LYMPH NODES: ??No abdominal or pelvic lymphadenopathy. ? VASCULATURE: ??The abdominal aorta is normal in caliber. ? MESENTERY/PERITONEUM: There is a small amount of free fluid around the ?? liver. No masses. ??There is no free intraperitoneal gas. ? STOMACH: ??The stomach is distended with fluid. ? SMALL BOWEL: ?? There are dilated loops of small bowel in the ?? midabdomen, some of which demonstrate equalization of contents, ?? consistent with stasis and likely obstruction. ? COLON: ??There is a large amount of stool in the colon. ? APPENDIX: ??The appendix is not seen, however no inflammatory changes ?? are seen adjacent to the cecum. ? URINARY BLADDER/PELVIC ORGANS: The urinary bladder is unremarkable. ? There are calcifications of the prostate. ? BONES / SOFT TISSUES: ??No suspicious bony or soft tissue abnormalities. ? CT/CT abdomen pelvis w IV con ?? IMPRESSION: ? 1. Findings suggestive of at least partial small bowel obstruction as ?? described. Small amount of fluid around the liver. ? 2. Horseshoe kidney. Multiple calculi in the left renal moiety with ?? dilatation of the collecting system and without hydroureter as seen ?? previously. ? Electronically signed by: ??Jass Dooley MD ??12/22/2024 11:43 AM EDT ? Dictated By: ?Jass Dooley MD ? Signed By: ?<Electronically signed by Jass Dooley MD in OV> ?12/22/24 1143 ? DD/ 1009 ? TD/TT: 12/22/24 112 ? Assistant Toddler Teacher: ? Procedure Note Dragan, Frank - 12/22/[address] [address] [address] Scan Report Signed with Coco Patient: No RamirezMR#: [id number] 58 : 1980Acct:[id number] Age/Sex: 44 / MADM Date: 12/22/24 Loc: HO.ED Attending Dr: Ordering Physician: Tam Hendrix MD Date of Service: 12/22/24 Procedure(s): CT abdomen pelvis w IV con Accession Number(s): [id number] cc: Darius Celis MD; Tam Hendrix MD Report Number: [id number]: Total DLP = 0.00 mGy-cm ADDENDUM ADDENDUM #1 The line in the body of the report regarding the small bowel should read as follows: SMALL BOWEL: There are dilated loops of small bowel in the midabdomen, some of which demonstrate fecalization of contents, consistent with stasis and likely obstruction. Electronically signed by: Jass Dooley MD 12/22/2024 12:20 PM EDT Addendum Dictated By: Jass Dooley MD Addendum Signed By: <Electronically signed by MD Flower in OV> 12/22/24 1220 Addendum Cosigned By: DD/ TD/TT: 12/22/24 EXAMINATION: CT ABDOMEN PELVIS WITH IV CONTRAST HISTORY: epigastric pain COMPARISON: Comparison is made with the prior examination dated 06/18/2022. TECHNIQUE: CT scan of the abdomen and pelvis was performed following administration of 85 mL Omnipaque 350 using standard departmental protocol. Coronal and sagittal reformatted images were generated and reviewed. Oral contrast material was not administered at the request of the referring physician. This CT exam was performed with one or more of the following dose reduction techniques: automated exposure control, adjustment of the mA and/or kV according to patient size, use of iterative reconstruction technique. DLP: 557 mGy-cm FINDINGS: LOWER CHEST: The visualized lung bases are clear. There is no pleural effusion. CARDIOVASCULATURE: The heart is normal in size. There is no pericardial effusion. LIVER: The liver is normal in size and contour. No liver mass is identified. The hepatic and portal veins are patent. GALLBLADDER / BILE DUCTS: The gallbladder is unremarkable. There is no intra or extrahepatic biliary ductal dilatation. SPLEEN: The spleen is normal in size. No focal splenic lesion is identified. PANCREAS: The pancreas is unremarkable in appearance. ADRENAL GLANDS: Within normal limits. 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 Multiple layering calculi are noted in the left renal moiety measuring up to 5 mm in size. There is dilatation of the collecting system on the left without significant change. No hydroureter is seen. No renal masses are identified. LYMPH NODES: No abdominal or pelvic lymphadenopathy. VASCULATURE: The abdominal aorta is normal in caliber. MESENTERY/PERITONEUM: There is a small amount of free fluid around the liver. No masses. There is no free intraperitoneal gas. STOMACH: The stomach is distended with fluid. SMALL BOWEL: There are dilated loops of small bowel in the midabdomen, some of which demonstrate equalization of contents, consistent with stasis and likely obstruction. COLON: There is a large amount of stool in the colon. APPENDIX: The appendix is not seen, however no inflammatory changes are seen adjacent to the cecum. URINARY BLADDER/PELVIC ORGANS: The urinary bladder is unremarkable. There are calcifications of the prostate. BONES / SOFT TISSUES: No suspicious bony or soft tissue abnormalities. CT/CT abdomen pelvis w IV con IMPRESSION: 1. Findings suggestive of at least partial small bowel obstruction as described. Small amount of fluid around the liver. 2. Horseshoe kidney. Multiple calculi in the left renal moiety with dilatation of the collecting system and without hydroureter as seen previously. Electronically signed by: Jass Dooley MD 12/22/2024 11:43 AM EDT Dictated By: Jass Dooley MD Signed By: <Electronically signed by Jass Dooley MD in OV> 12/22/24 1143 DD/ 1009 TD/TT: 12/22/24 1120 Assistant Toddler Teacher: [facility] External Provider IMG CT PROCEDURES Edited Result - Final * Glucose, Whole Blood (12/22/2024 9:44 AM EDT) Glucose, Whole Blood 84 60 - 115 mg/dL [facility] Comment:METER #: [id number] 12/22/2024 9:44 AM EDT 12/22/2024 9:48 AM EDT Generic External Data Provider LAB BLOOD ORDERAB LES Final Result [facility] [address] [place] [phone] * SARS-CoV-2 RNA, Influenza A/B, and RSV RNA, Ql NAAT (12/22/2024 5:16 AM EDT) Pathologist [facility] Influenza A PCR NEGATIVE Negative [facility] Influenza B PCR NEGATIVE Negative [facility] Resp Syncy Virus RNA Qual PCR NEGATIVE Negative [facility] SARS COV2 PCR NEGATIVE Negative [facility] Comment:All test results mus t be correlated with clinical findings.Negative results do not preclude SARS-CoV2, influenza Avirus, influenza B virus and/or RSV infectionand should not be used as the sole basis for treatment orother patient management decisions. Negative results must becombined with clinical observations, patient history, andepidemiological information.This test has not been evaluated for monitoring treatment ofinfection.This test has been authorized by the FDA under an EmergencyUse Authorization (EUA) for use by authorized laboratories.Testing performed on the [employer] GeneXpert utilizingreal-time RT-PCR.All SARS CoV2 and positive influenza A/B results arereported to [facility]. 12/22/2024 5:16 AM EDT 12/22/2024 5:19 AM EDT us Generic External Data Provider LAB MICROBIOLOGY - GENERAL ORDERABLES Final Result [facility] [address] [place] [phone] * (ABNORMAL) CBC auto differential (12/22/2024 5:16 AM EDT) White Blood Count 6.2 4.8 - 10.8 X10*3/uL [facility] Red Blood Count 4.94 4.60 - 5.80 X10*6/uL [facility] Hemoglobin 14.9 14.0 - 18.0 g/dl [facility] Hematocrit 44.7 42.0 - 52.0 % [facility] Mean Corpuscular Volume 90.5 80.0 - 98.0 fL [facility] Mean Corpuscular Hemoglobin 30.2 27.0 - 33.0 pg [facility] Mean Corpuscular HGB Conc 33.3 31.0 - 36.0 g/dl [facility] Red Cell Distribution Width 12.5 11.0 - 16.0 % [facility] Platelet Count 282 160 - 400 X10*3/uL [facility] Mean Platelet Volume 8.5(L) 9.4 - 12.4 fL [facility] Neutrophils Percent Auto 68.1 45 - 73 % [facility] Imm Gran Pct Auto 0.3 0.0 - 0.4 % [facility] Lymphocytes Percent Auto 23.5 20 - 40 % [facility] Monocytes Percent Auto 6.9 2 - 11 % [facility] Eosinophils Percent Auto 1.0 0 - 4 % [facility] Basophils Percent Auto 0.2 0 - 2 % [facility] NRBC Pct Auto 0.0 0.0 - 0.2 /100WBC [facility] Neutrophils Absolute Auto 4.2 2.0 - 8.3 x10*3/uL [facility] Imm Gran Abs Auto 0.02 0.00 - 0.03 X10*3/uL [facility] Lymphocytes Absolute Auto 1.5 1.2 - 4.9 X10*3/uL [facility] Monocytes Absolute Auto 0.4 0.1 - 1.2 X10*3/uL [facility] Eosinophils Absolute Auto 0.1 0.0 - 0.4 X10*3/uL [facility] Basophils Absolute Auto 0.0 0.0 - 0.2 X10*3/uL [facility] NRBC Abs Auto 0.000 0.0 - 0.012 X10*3/uL [facility] 12/22/2024 5:16 AM EDT 12/22/2024 5:19 AM EDT Generic External Data Provider LAB BLOOD ORDERAB LES Final Result Performing Organization Address City/[facility]/ZIP Co de Phone Number [facility] [address] [place] [phone] * Lipase (12/22/2024 5:16 AM EDT) Lipase 20 8 - 78 U/L [facility] 12/22/2024 5:16 AM EDT 12/22/2024 5:19 AM EDT [employer] External Data Provider LAB BLOOD ORDERAB LES Final Result Performing Organization Address [facility] Co de Phone Number [facility] [address] [place] [phone] * Hepatic Function Panel (12/22/2024 5:16 AM EDT) Bilirubin, Direct 0.1 0.0 - 0.5 mg/dL [facility] 12/22/2024 5:16 AM EDT 12/22/2024 5:19 AM EDT us Generic External Data Provider LAB BLOOD ORDERAB LES Final Result [facility] [address] [place] [phone] * (ABNORMAL) Comprehensive Metabolic Panel (12/22/2024 5:16 AM EDT) Sodium 139 135 - 145 mmol/L [facility] Potassium 4.1 3.3 - 5.1 mmol/L [facility] Chloride 104 96 - 108 mmol/L [facility] Carbon Dioxide 28 22 - 29 mmol/L [facility] Anion Gap 11(L) 12 - 20 [facility] Urea Nitrogen (BUN) 12 9 - 16 mg/dL [facility] Creatinine, Serum 0.99 0.5 - 1.4 mg/dL [facility] Creatinine Clr Calc Pharmacy 100.8 [facility] Comment:eGFR (calculated fro m the MDRD study equation) and eCrCl(calculated from the Cockcroft-Gault equation) are based ondifferent parameters and may not yield comparable results.If eCrCl result is absurd, please check patient'sheight/weight. Estimated Glomerular Filt Rate >60 [facility] Comment:Chronic Kidney Disea se: Estimated GFR < 60 mL/min/[id number] Kidney Disease: Estimated GFR < 15 mL/min/1.73m2 Glucose 90 60 - 115 mg/dL [facility] Calcium 9.2 8.4 - 10.2 mg/dL [facility] Bilirubin, Total 0.4 0.0 - 1.0 mg/dL [facility] Aspartate Amino Transferase 29 5 - 37 U/L [facility] Alanine Aminotransferase 15 0 - 40 U/L [facility] Total Protein 7.3 6.5 - 8.0 g/dL [facility] Albumin Level 4.1 3.5 - 5.0 g/dL [facility] Alkaline Phosphatase 64 39 - 117 U/L [facility] 12/22/2024 5:16 AM EDT 12/22/2024 5:19 AM EDT us Generic External Data Provider LAB BLOOD ORDERAB LES Final Result [facility] [address] [place] [phone] * (ABNORMAL) Drug Monitoring, Panel 1, Screen, Urine (12/04/2024 2:19 PM EDT) Opiate Screen Urine Not Detected Not Detect [facility] Comment:Opiate cut-off is 30 0 ng/mL.Positive results are unconfirmed and should not be used fornon-medical purposes. Barbiturates, Urine Not Detected Not Detect [facility] Comment:Barbiturate cut-off is 200 ng/mL.Positive results are unconfirmed and should not be used fornon-medical purposes. Phencyclidine Screen Urine Not Detected Not Detect [facility] Comment:Phencyclidine cut-of f is 25 ng/mL.Positive results are unconfirmed and should not be used fornon-medical purposes. Amphetamine Screen Urine Not Detected Not Detect [facility] Comment:Amphetamine cut-off is 1000 ng/mL.Positive results are unconfirmed and should not be used fornon-medical purposes. Benzodiazepines Screen Urine Not Detected Not Detect [facility] Comment:Benzodiazepine cut-o ff is 200 ng/mL.Positive results are unconfirmed and should not be used fornon-medical purposes. Cocaine Screen Urine Not Detected Not Detect [facility] Comment:Cocaine cut-off is 3 00 ng/mL.Positive results are unconfirmed and should not be used fornon-medical purposes. Cannabinoid Screen Urine Not Detected Not Detect [facility] Comment:Cannabinoid cut-off is 50 ng/mL.Positive results are unconfirmed and should not be used fornon-medical purposes. Methadone Screen, Urine Not Detected Not Detect ng/mL [facility] Comment:Methadone cut-off is 300 ng/mL.Positive results are unconfirmed and should not be used fornon-medical purposes. FENTANYL URINE Not Detected Not Detect [facility] Comment:Fentanyl cut-off is 1 ng/mL.Positive results are unconfirmed and should not be used fornon-medical purposes. Oxycodone Urine Screen Not Detected Not Detect ng/mL [facility] Comment:Oxycodone cut-off is 100 ng/mL.Positive results are unconfirmed and should not be used fornon-medical purposes. Buprenorphine Screen Positive(A) Not Detect ng/mL [facility] Comment:Buprenorphine cut-of f is 5 ng/mL.Positive results are unconfirmed and should not be used fornon-medical purposes. 12/04/2024 2:19 PM EDT 12/04/2024 2:35 PM EDT us Generic External Data Provider LAB URINE ORDERAB LES Final Result Performing Organization Address [facility] Co de Phone Number [facility] [address] [place] [phone] * (ABNORMAL) Urinalysis w/reflex microscopic (12/04/2024 2:19 PM EDT) Color Urine Yellow [facility] Appearance Urine Clear [facility] PH 5.0 5.0 - 9.0 [facility] Glucose Urine UA 100(A) Negative mg/dL [facility] Urine Blood Negative Negative [facility] Specific Bertrand - Urine 1.025 1.005 - 1.025 [facility] Urine Protein Negative Neg-Trace mg/dL [facility] Urine Ketones 15 Negative mg/dL [facility] Nitrite Urine Negative Negative [facility] Leukocyte Esterase Urine Negative Negative [facility] 12/04/2024 2:19 PM EDT 12/04/2024 2:35 PM EDT Narrative [facility] - 12/04/2024 2:42 PM EDT Urine, Clean Catch us Generic External Data Provider LAB URINE ORDERAB LES Final Result [facility] [address] [place] [phone] * POCT GEOVANY-14 Urine Drug Screen [...] Result from Last 3 Months Care Teams Section Supervisor Relationship Specialty Start Date End Date Darius Celis MD [address] [place] [phone] PCP - General Internal Medicine 08/27/13
[2024-12-23 03:19] LABS: Basophils Percent Auto 0.1 % (0-2); Eosinophils Percent Auto 0.3 % (0-4); Hematocrit 45.7 % (42.0-52.0); Hemoglobin 15.6 g/dl (14.0-18.0); Imm Gran Abs Auto 0.02 X10*3/uL (0.00-0.03); Imm Gran Pct Auto 0.3 % (0.0-0.4); Lymphocytes Absolute Auto 1.6 X10*3/uL (1.2-4.9); Lymphocytes Percent Auto 20.5 % (20-40); MANUAL DIFF FLAG NO; Mean Corpuscular HGB Conc 34.1 g/dl (31.0-36.0); Mean Corpuscular Hemoglobin 30.5 pg (27.0-33.0); Mean Corpuscular Volume 89.3 fL (80.0-98.0); Mean Platelet Volume 8.6 fL (9.4-12.4); Monocytes Absolute Auto 0.5 X10*3/uL (0.1-1.2); Monocytes Percent Auto 6.7 % (2-11); Neutrophils Absolute Auto 5.6 x10*3/uL (2.0-8.3); Neutrophils Percent Auto 72.1 % (45-73); Platelet Count 305 X10*3/uL (160-400); Red Blood Count 5.12 X10*6/uL (4.60-5.80); Red Cell Distribution Width 12.7 % (11.0-16.0); White Blood Count 7.8 X10*3/uL (4.8-10.8)
[2024-12-23] MEDS: Morphine Sulfate 4 MG/ML CARTRIDGE IVPUSH ×2 (03:28→15:44)
[2024-12-23] MEDS: ondansetron HCL 4 MG/2 ML VIAL IVPUSH (03:28)
[2024-12-23] MEDS: 0.9 % Sodium Chloride 1,000 ML 999 ML IVCONT (03:29)
[2024-12-23 03:52] LABS: Alanine Aminotransferase 10 U/L (0-40); Albumin Level 3.9 g/dL (3.5-5.0); Alkaline Phosphatase 66 U/L (39-117); Anion Gap 11 (12-20); Aspartate Amino Transferase 27 U/L (5-37); Bilirubin Direct 0.2 mg/dL (0.0-0.5); Bilirubin Total 0.7 mg/dL (0.0-1.0); Blood Urea Nitrogen 13 mg/dL (9-16); Calcium 9.3 mg/dL (8.4-10.2); Carbon Dioxide 31 mmol/L (22-29); Chloride 102 mmol/L (96-108); Creatinine Clr Calc Pharmacy 101.8; Estimated Glomerular Filt Rate > 60; Glucose Random 83 mg/dL (60-115); Lipase 21 U/L (8-78); Magnesium 1.8 mg/dL (1.6-2.6); Potassium 4.2 mmol/L (3.3-5.1); Sodium 140 mmol/L (135-145)
[2024-12-23] MEDS: HYDROmorphone HCl 1 MG/ML SYRINGE IVPUSH (04:42)
--- NOTE | 2024-12-23 04:51 | ED_ITS ---
HPI - Abdominal Pain General Chief Complaint: Abdominal Pain Stated Complaint: Abd Pain Time Seen by Provider: 12/23/24 03:06 Source: patient Mode of arrival: ambulatory Limitations: no limitations History of Present Illness ED Provider: Dr. Emely Dangelo HPI narrative: Patient comes to the emergency room complaining of worsening abdominal pain. Patient was seen here yesterday in the morning. A CT scan of the abdomen was done, findings suggestive of at least partial small bowel obstruction. Previous ED provider consulted General surgery. Dr. Hernandez recommended clear liquid diet for 24 hours and 1/3 bottle of magnesium citrate and follow-up with PCP. Patient states that he was given pain medication prior to discharge and he was feeling well. However, after he got home, he started having recurrent pain, and a few hours prior to arrival he got unbearable and decided to come back to the emergency room. Related Data Home Medications ?Medication ?Instructions ?Recorded ?Confirmed buprenorphine 8 mg-naloxone 2 mg 1 strip sublingual BID 12/03/21 07/18/23 sublingual film (Suboxone) Previous Rx's ?Medication ?Instructions ?Recorded levofloxacin 500 mg tablet 500 mg PO DAILY 7 days #7 tabs 07/19/23 metronidazole 500 mg tablet 500 mg PO BID 7 days #14 tabs 07/19/23 pantoprazole 40 mg tablet,delayed 40 mg PO DAILY #30 tabs 02/06/24 release acetaminophen 325 mg tablet 650 mg (2 x 325 mg) PO Q4H PRN 08/13/24 fever or pain #30 tabs ibuprofen 600 mg tablet 600 mg PO Q6H PRN pain #20 tabs 08/13/24 ondansetron 4 mg disintegrating 4 mg PO Q6H nausea and vomiting 08/13/24 tablet #14 tabs loperamide 2 mg tablet 2 mg PO Q4H PRN loose stool #14 08/15/24 tabs ondansetron 4 mg disintegrating 4 mg PO Q6H PRN nausea and 08/15/24 tablet vomiting #14 tabs pantoprazole 40 mg tablet,delayed 40 mg PO DAILY 1 month #30 tabs 12/04/24 release sucralfate 1 gram tablet 1 g PO BID 4 weeks #56 tabs 12/04/24 famotidine 20 mg tablet (Pepcid) 20 mg PO DAILY 30 days #30 tabs 12/22/24 sucralfate 100 mg/mL oral 10 ml PO BID 14 days #280 mL 12/22/24 suspension Allergies Allergy/AdvReac Type Severity Reaction Status Date / Time No Known Allergies Allergy Verified 12/23/24 02:56 Review of Systems Review of Systems Constitutional : No Weight loss, No Fever, No Chills, No Night Sweats, No Fatigue, No Malaise ENT/Mouth : No Hearing loss, No Ear Pain, No Nasal Congestion, No Sinus Pain, No Hoarseness, No sore throat, No Rhinorrhea, No Swallowing Difficulty Eyes: No Eye Pain, No Swelling, No Redness, No Foreign Body, No Discharge, No Vision Changes Cardiovascular : No Chest Pain, No SOB, No Dyspnea on Exertion, No Orthopnea, No Edema, No Palpitations Respiratory : No Cough, No Sputum, No Wheezing, No Smoke Exposure, No Dyspnea Gastrointestinal : Of nausea, no vomiting or diarrhea, complaining of diffuse abdominal pain, seems to be worse in the epigastric area Pain, No Hematochezia, No Melena Genitourinary : no irregular bleeding, No Dysuria, No Urinary Frequency, No Hematuria, No Urinary Incontinence, No Urgency, No Flank Pain, No Urinary Flow Changes, No Hesitancy Musculoskeletal : No joint pain, No Myalgias, No Joint Swelling Skin : No Skin Lesions, No rash Neuro : No Weakness, No Numbness, No Paresthesias, No Loss of Consciousness, No Dizziness, No Headache Psych : No Anxiety/Panic, No Depression, No SI/HI/AH/VH, No Social Issues, Heme/Lymph: No Bruising, No Bleeding,No Lymphadenopathy Endocrine : No Polyuria, No Polydipsia, No Temperature Intolerance [facility] Past Medical History Medical History Horseshoe kidney Small bowel obstruction Surgical History History of esophagogastroduodenoscopy (EGD) Hx of kidney disease Social History Social History Household Members: None Household Members Other:: - 4 sons- (17-24) Unable to assess alcohol history related to: Unknown Alcohol intake: former Patient Tobacco Use Status: Never used Tobacco Second Hand Smoke Exposure: No Advance Directives: No Advance Directives Information Provided: Yes Advance Directives Date on File: 07/18/23 Do you have a plan to hurt others: No Plan Current occupational status: employed Current occupation: [employer] Physical Exam ED Vital Signs: Vital Signs - 24 hr 12/23/24 02:45 12/23/24 05:10 12/23/24 07:03 Temperature 97.9 F 98.1 F 98.1 F Pulse Rate 97 80 80 Respiratory Rate 16 16 16 Blood Pressure 137/81 122/76 122/76 Pulse Oximetry 99 97 97 Oxygen Delivery Method Room Air Room Air Room Air BMI result Body Mass Index 30.4 Const Other: Appearance: Alert. Oriented X3. No acute distress. Eyes: Pupils equal, round and reactive to light. ENT: Pharynx normal. Neck: Normal inspection. Neck supple. No lymph nodes noted. No crepitus CVS: Normal heart rate and rhythm. Pulses normal. Normal S1 and S2 Respiratory: No respiratory distress. Breath sounds normal. No Wheezing. No rales Abdomen: Soft , epigastric pain to palpation, no rebound, mild guarding No rigidity. No distention. Skin: Skin warm and dry. Normal skin color. Normal skin turgor. Extremities: No lower extremity edema. No Lacerations. No Rash Neuro: Oriented X 3. No motor deficit. No sensory deficit. Moving all extremities. No slurred speech. CN 2 through 12 grossly intact Psych: calm, cooperative, normal affect Course Course Course Narrative: Patient was seen here earlier today, given patient's worsening symptoms, we will repeat labs and CAT scan, this time with p.o. contrast Medical Decision Making Medical Decision Making MDM Narrative: My interpretation of labs: No significant change in patient's hematology and chemistry from previous labs, normal LFTs, normal lipase -patient received a dose of morphine and a dose of Dilaudid, seems that patient is doing a bit better. CT scan of the abdomen with p.o. contrast pending. Patient will likely need surgery consult and admission Sign-out given to my colleague Dr. Flowers At 08:00 I discussed the case with Dr. Disla. Aware that patient has CT finding consistent with small-bowel obstruction will see patient and likely admit patient for further evaluation. I went back and re-examined patient he is appears benign. Sleeping in no distress. Currently in stable condition awaiting admission by surgery Lab Data 12/23/24 03:12 12/23/24 03:12 Labs: Lab Results 12/23/24 Range/Units 03:12 WBC 7.8 (4.8-10.8) X10*3/uL RBC 5.12 (4.60-5.80) X10*6/uL Hgb 15.6 (14.0-18.0) g/dl Hct 45.7 (42.0-52.0) % MCV 89.3 (80.0-98.0) fL MCH 30.5 (27.0-33.0) pg MCHC 34.1 (31.0-36.0) g/dl RDW 12.7 (11.0-16.0) % Plt Count 305 (160-400) X10*3/uL MPV 8.6 L (9.4-12.4) fL Immature Gran % (Auto) 0.3 (0.0-0.4) % Neut % (Auto) 72.1 (45-73) % Lymph % (Auto) 20.5 (20-40) % [place] % (Auto) 6.7 (2-11) % Eos % (Auto) 0.3 (0-4) % Baso % (Auto) 0.1 (0-2) % Lymph # (Auto) 1.6 (1.2-4.9) X10*3/uL [place] # (Auto) 0.5 (0.1-1.2) X10*3/uL Eos # (Auto) 0.0 (0.0-0.4) X10*3/uL Baso # (Auto) 0.0 (0.0-0.2) X10*3/uL Abs Immat Gran (auto) 0.02 (0.00-0.03) X10*3/uL Absolute Neuts (auto) 5.6 (2.0-8.3) x10*3/uL Absolute Nucleated RBC 0.000 (0.0-0.012) X10*3/uL Nucleated RBC % (auto) 0.0 (0.0-0.2) /100WBC Sodium 140 (135-145) mmol/L Potassium 4.2 (3.3-5.1) mmol/L Chloride 102 (96-108) mmol/L Carbon Dioxide 31 H (22-29) mmol/L Anion Gap 11 L (12-20) BUN 13 (9-16) mg/dL Creatinine 0.98 (0.5-1.4) mg/dL Estim Creat Clear Calc 101.8 Estimated GFR > 60 Random Glucose 83 (60-115) mg/dL Calcium 9.3 (8.4-10.2) mg/dL Magnesium 1.8 (1.6-2.6) mg/dL Total Bilirubin 0.7 (0.0-1.0) mg/dL Direct Bilirubin 0.2 (0.0-0.5) mg/dL AST 27 (5-37) U/L ALT 10 (0-40) U/L Alkaline Phosphatase 66 (39-117) U/L Total Protein 7.0 (6.5-8.0) g/dL Albumin 3.9 (3.5-5.0) g/dL Lipase 21 (8-78) U/L Medications Administered Generic Name Dose Route Start Last Admin Trade Name Carlos Eduardo PRN Reason Stop Dose Admin Sodium Chloride 1,000 mls @ 125 mls/hr 12/23/24 07:45 12/23/24 08:28 Ns IVCONT 125 mls/hr .Q8H BRENDEN Administration Discontinued Medications Generic Name Dose Route Start Last Admin Trade Name Freq PRN Reason Stop Dose Admin Diatrizoate Meglum/Diatrizoate Sod 30 ml 12/23/24 05:58 12/23/24 05:59 Diatrizoate Meglumine, Sodium 30 Ml Solution PO 12/23/24 05:59 30 ml ONCE ONE Administration Hydromorphone HCl 1 mg 12/23/24 04:35 12/23/24 04:42 Hydromorphone Hcl 1 Mg/Ml Syringe IVPUSH 12/23/24 04:36 1 mg ONCE ONE Administration Protocol Sodium Chloride 1,000 mls @ 999 mls/hr 12/23/24 03:16 12/23/24 04:30 Ns IVCONT 12/23/24 04:16 Infused .Q1H1M ONE Infusion Morphine Sulfate 4 mg 12/23/24 03:16 12/23/24 03:28 Morphine Sulfate 4 Mg/Ml Cartridge IVPUSH 12/23/24 03:17 4 mg ONCE ONE Administration Protocol Ondansetron HCl 4 mg 12/23/24 03:16 12/23/24 03:28 Ondansetron Hcl 4 Mg/2 Ml Vial IVPUSH 12/23/24 03:17 4 mg ONCE ONE Administration Critical Care Time Critical Care Time Critical Care Time: Yes Total Critical Care Time: 60 Attestation: I have personally provided critical care time. Time includes review of lab data, radiology results, discussion with consultants, and monitoring for potential decompensation. Intervention performed as documented. Discharge Plan Discharge Clinical Impression: Small bowel obstruction Prescriptions: No Action pantoprazole 40 mg tablet,delayed release (DR/EC) 40 mg PO DAILY Qty: 30 6RF buprenorphine-naloxone [Suboxone] 8-2 mg film 1 strip sublingual BID ondansetron 4 mg tablet,disintegrating 4 mg PO Q6H Qty: 14 0RF acetaminophen 325 mg tablet 650 mg PO Q4H PRN (Reason: fever or pain) Qty: 30 0RF ibuprofen 600 mg tablet 600 mg PO Q6H PRN (Reason: pain) Qty: 20 0RF ondansetron 4 mg tablet,disintegrating 4 mg PO Q6H PRN (Reason: nausea and vomiting) Qty: 14 0RF loperamide 2 mg tablet 2 mg PO Q4H PRN (Reason: loose stool) Qty: 14 0RF Rx Instructions: administer after each loose stool until symptoms controlled; do not exceed 8 mg per 24 hrs famotidine [Pepcid] 20 mg tablet 20 mg PO DAILY 30 Days Qty: 30 0RF sucralfate 100 mg/mL suspension 10 ml PO BID 14 Days Qty: 280 0RF levofloxacin 500 mg tablet 500 mg PO DAILY 7 Days Qty: 7 0RF metronidazole 500 mg tablet 500 mg PO BID 7 Days Qty: 14 0RF pantoprazole 40 mg tablet,delayed release (DR/EC) 40 mg PO DAILY 30 Days Qty: 30 0RF sucralfate 1 gram tablet 1 g PO BID 28 Days Qty: 56 0RF Print Language: Montserratian
--- NOTE | 2024-12-23 05:58 | PC.NURSE ---
Pt comes from waiting room with complaints of abd pain, inability to pass gas or keep liquids down without an increase in pain, and no BMs. PT was seen on 12/22 and discharged home on clear liquid diet with plan for gastro and pcp follow up. Imaging noted possible SBO, however surgical consult questioned scan, and recommended pt to be discharged home. at discharge pts pain was resolved. The pain returned 6pm on 12/22. PT attempted miralax order (1/3 ordered, pt consumed 1/2 bottle over an hour period) with no effect. PT states drinking any liquids causes an increase in pain. He had one bout of vomitting fire captain. 20g IV placed in R AC. pt tolerated well. Medicated as per SEP. Awaiting imaging results. Plan of care ongoing
[2024-12-23] MEDS: Diatrizoate Meglumine, Sodium 30 ML SOLUTION PO (05:59)
--- NOTE | 2024-12-23 06:41 | PC.NURSE ---
attempted pain reassessment however pt is sound asleep, appearing comfortable and in no acute distress. respirations even and unlabored. call weiner within reach. plan of care ongoing
--- NOTE | 2024-12-23 07:20 | PC.NURSE ---
report taken from previous rn. pt resting comfortably at this time, we are awaiting his ct report.
--- NOTE | 2024-12-23 08:13 | PM.HPGS ---
History of Present Illness History of Present Illness Date of Service: 12/23/24 <Satnam Rangel PA-C - Last Filed: 12/23/24 12:50> 12/23/24 <Yadiel Disla MD - Last Filed: 12/23/24 10:46> Chief complaint: Abd Pain, SBO <Satnam Rangel PA-C - Last Filed: 12/23/24 12:50> Narrative: No Ramirez is a 44 year old male with a history of previous SBO, GERD, MARY BETH, horseshoe kidney presenting with a 3 day history of upper abdominal pain, and associated nausea and vomiting. Patient describes the pain as intermittent and crampy/stabbing in very intense in quality. Patient was recently seen in the emergency department on 12/22/2024 for a similar episode. Patient was consulted by Dr. Hernandez who was not impressed by CT scans, and recommended clear liquid diet for 24 hours alongside magnesium citrate. Patient was ultimately discharged with this plan. However, he began experiencing worsening pain and more frequent episodes so he decided to return. He states that when he is experieicnin the pain, he feels nauseous and had a few episodes of vomiting. CT scan in the emergency department shows worsening small bowel obstruction with a transition point in the right lower quadrant. He denies fever/chills at home. He has been on a clear liquid diet since yesterday morning. He denies passing flatus, bowel movement. States last bowel movement was a few days ago but was very small. He reports a history of abdominal surgery when he was a young child but does not know what the procedure was or why. Current daily medications include PPI for GERD and 16 mg of Suboxone daily. He denies other chronic medical conditions. He denies any allergies. <Satnam Rangel PA-C - Last Filed: 12/23/24 12:50> Review of Systems Constitutional: Constitutional: Denies chills and Denies fever(s) <Satnam Rangel PA-C - Last Filed: 12/23/24 12:50> Gastrointestinal: Gastrointestinal: Reports abdominal pain (Upper) <Satnam Rangel PA-C - Last Filed: 12/23/24 12:50> [facility] Past Medical History Medical History: Medical History Horseshoe kidney Small bowel obstruction <Satnam Rangel PA-C - Last Filed: 12/23/24 12:50> Surgical History Surgical History: Surgical History History of esophagogastroduodenoscopy (EGD) Hx of kidney disease <Satnam Rangel PA-C - Last Filed: 12/23/24 12:50> Social History Social History: Social History Household Members: None Household Members Other:: - 4 sons- (17-24) Unable to assess alcohol history related to: Unknown Alcohol intake: former Patient Tobacco Use Status: Never used Tobacco Second Hand Smoke Exposure: No Advance Directives: No Advance Directives Information Provided: Yes Advance Directives Date on File: 07/18/23 Do you have a plan to hurt others: No Plan Current occupational status: employed Current occupation: [employer] <Satnam Rangel PA-C - Last Filed: 12/23/24 12:50> Meds Allergies/Adverse reactions: Allergies Allergy/AdvReac Type Severity Reaction Status Date / Time No Known Allergies Allergy Verified 12/23/24 02:56 <MARGARETTE Nevarez Last Filed: 12/23/24 12:50> Active Medications: Current Medications Sodium Chloride (Ns) 1,000 mls @ 125 mls/hr IVCONT .Q8H BRENDEN <Satnam Rangel PA-C - Last Filed: 12/23/24 12:50> Home medications: Home Medications ?Medication ?Instructions ?Recorded ?Confirmed ?Last Taken ?Type buprenorphine 8 mg-naloxone 2 mg 1 strip sublingual BID 12/03/21 12/23/24 12/22/24 History sublingual film (Suboxone) pantoprazole 40 mg tablet,delayed 40 mg PO DAILY 12/23/24 12/23/24 12/23/24 History release <MARGARETTE Nevarez Last Filed: 12/23/24 12:50> Physical Exam Vital Signs: Vital Signs: Last Vital Signs Temp 98.1 F 12/23/24 07:03 Pulse 80 12/23/24 07:03 Resp 16 12/23/24 07:03 BP 122/76 12/23/24 07:03 Pulse Ox 97 12/23/24 07:03 O2 Del Method Room Air 12/23/24 07:03 BMI result Body Mass Index 30.4 <Satnam RangelMARGARETTE Luz Last Filed: 12/23/24 12:50> Const: General: no acute distress <Satnam RangelMARGARETTE Luz Last Filed: 12/23/24 12:50> Nutritional Appearance: average body habitus <Satnam RangelMARGARETTE Luz Last Filed: 12/23/24 12:50> Orientation/consciousness: patient oriented x3 <Satnam Juan CarlosFLORAShantel Escobar Last Filed: 12/23/24 12:50> Resp: Effort & Inspection: normal respiratory effort and able to speak in complete sentences <Satnam MARGARETTE Rangel Luz Last Filed: 12/23/24 12:50> GI: Inspection: No Abdominal wall edema and No distended <Satnam Juan CarlosFLORAShantel Escobar Last Filed: 12/23/24 12:50> Palpation (GI): Soft to palpation, not firm, Tenderness to palpation present (GI) (Diffuse, focal point epigastric), no guarding and not rigid <Satnam Juan CarlosMARGARETTE Luz Last Filed: 12/23/24 12:50> Percussion: Yes normal to percussion <Satnam MARGARETTE Rangel Luz Last Filed: 12/23/24 12:50> Neuro: General: patient oriented x3 <Satnam FLORA RangelShantel Escobar Last Filed: 12/23/24 12:50> Extrem: General: Yes full ROM <Satnam MARGARETTE Rangel Luz Last Filed: 12/23/24 12:50> Results Results Labs: Short CBC 12/23/24 Range/Units 03:12 WBC 7.8 (4.8-10.8) X10*3/uL Hgb 15.6 (14.0-18.0) g/dl Hct 45.7 (42.0-52.0) % Plt Count 305 (160-400) X10*3/uL BMP 12/23/24 03:12 Sodium 140 Potassium 4.2 Chloride 102 Carbon Dioxide 31 H BUN 13 Creatinine 0.98 Calcium 9.3 Liver Function 12/23/24 Range/Units 03:12 Total Bilirubin 0.7 (0.0-1.0) mg/dL Direct Bilirubin 0.2 (0.0-0.5) mg/dL AST 27 (5-37) U/L ALT 10 (0-40) U/L Alkaline Phosphatase 66 (39-117) U/L Albumin 3.9 (3.5-5.0) g/dL <Satnam Rangel PA-C - Last Filed: 12/23/24 12:50> Assessment and Plan (1) Small bowel obstruction: Status: Acute <Satnam Rangel PA-C - Last Filed: 12/23/24 12:50> 44-year-old male with abdominal pain and some nausea yesterday Currently feels much more comfortable, no significant pain Abdomen is soft and benign CAT scan did suggest some degree of partial small-bowel obstruction; good amounts of air and stool in the colon seen Had previous long laparotomy for kidney disease as a child We will admit for partial small-bowel obstruction NPO temporarily but we will start on clear liquids when he continues to do well IV fluids Currently, does not seem to require any surgical intervention Seen and examined independently <Yadiel Disla MD - Last Filed: 12/23/24 10:46> (2) Abdominal pain: Qualifiers: Abdominal location: epigastric Qualified Code(s): R10.13 - Epigastric pain <Satnam Rangel PA-C - Last Filed: 12/23/24 12:50> Status: Acute <Satnam Rangel PA-C - Last Filed: 12/23/24 12:50> 44 year old male with a history of previous SBO, GERD, MARY BETH, horseshoe kidney presenting with a 3 day history of upper abdominal pain. Patient was seen on 12/22/2024 for this pain and discharged with plan for clear liquid diet and magnesium citrate to facilitate a bowel movement. However his pain has returned and is now associated with nausea and vomiting, patient had a few episodes of vomiting at home. He has not been passing flatus, denies passing bowel movements, last bowel movement a few days ago and was very small. Is unable to tolerate PO. CT impression suggests worsening SBO with transition point in RLQ, i reviewed imaging, the small bowel has mild distention, it is reassuring that there is air in the colon. Clinically, his abdomen is soft, nondistended and mildly tender to palpation throughout, with most tenderness in the epigastric area. No plan for current surgical intervention at this time. No current indication for NG tube, would have low threshold for insertion, if patient is vomiting. Plan to admit, and follow clinically with serial abdominal exams. Will repeat basic labs in AM. NPO IV fluids Pain regimen Antiemetics ambulation as tolerated basic AM labs <Satnam Rangel PA-C - Last Filed: 12/23/24 12:50> Quality Stroke Does the patient have a stroke diagnosis?: No <Satnam Rangel PA-C - Last Filed: 12/23/24 12:50> VTE Prior VTE?: No <Satnam Rangel PA-C - Last Filed: 12/23/24 12:50> VTE Risk Level:: Surgical - moderate <Satnam Rangel PA-C - Last Filed: 12/23/24 12:50> VTE Device Contraindication: N/A - Device Ordered <Satnam Rangel PA-C - Last Filed: 12/23/24 12:50> VTE Drug Contraindication: Treatment Not Indicated <Satnam Rangel PA-C - Last Filed: 12/23/24 12:50> Procedures Date of Service Date of Service: 12/23/24 <Satnam Rangel PA-C - Last Filed: 12/23/24 12:50> 12/23/24 <Yadiel Disla MD - Last Filed: 12/23/24 10:46>
[2024-12-23] MEDS: 0.9 % Sodium Chloride 1,000 ML 125 ML IVCONT (08:28)
--- NOTE | 2024-12-23 09:09 | PHA.MEDREC ---
Addendum entered by Laura Still RPh 12/23/24 10:33: Med rec was reviewed by [facility]. Original Note: Pharmacy Consult ? Medication Reconciliation Pharmacy has completed the medication reconciliation. Spoke to patient to confirm med list. Patient states he had Pantoprazole today and Suboxone 8mg/2mg he only had his morning dose yesterday.
[2024-12-23 09:48] LABS: Appearance Urine Clear; Color Urine Dark Yellow; Glucose Urine UA Negative (Negative); Leukocyte Esterase Urine Negative (Negative); Nitrite Urine Negative (Negative); Specific Gravity - Urine >= 1.030 (1.005-1.025); Urine Blood Negative (Negative); Urine Ketones 40 mg/dL (Negative); Urine Protein Trace mg/dL (Neg-Trace)
[2024-12-23] MEDS: Acetaminophen 1,000 MG/100 ML PIGGYBACK 400 MG IV ×3 (09:57→21:21)
[2024-12-23] MEDS: Lactated Ringers 1,000 ML 100 ML IVCONT ×2 (11:23→21:23)
--- NOTE | 2024-12-23 14:55 | PM.EVENT ---
Event Note Date of Service: 12/23/24 Event Note: Seen on afternoon rounds He says he feels well Denies any pain Abdomen is soft and nontender No nausea or vomiting He says he has been passing flatus this afternoon Plan to start on clear liquids for breakfast at bedside Time Spent With Patient Time: Total time managing care of this patient today ____ minutes.
[2024-12-23] MEDS: 0.9 % Sodium Chloride Flush 3 ML SYRINGE IVFLUSH (15:14)
[2024-12-23] MEDS: Buprenorphine/Naloxone 8/2 mg FILM 1 FILM SUBLINGUAL (20:38)
[2024-12-24] MEDS: Morphine Sulfate 4 MG/ML CARTRIDGE IVPUSH (01:44)
[2024-12-24] MEDS: Acetaminophen 1,000 MG/100 ML PIGGYBACK 400 MG IV ×4 (03:34→21:10)
[2024-12-24 03:49] VITALS: BP 115/64; PULSE 80; RESP 18; TEMP 36.8; O2SAT 97
[2024-12-24 07:36] LABS: Anion Gap 10 (12-20); Blood Urea Nitrogen 15 mg/dL (9-16); Calcium 8.4 mg/dL (8.4-10.2); Carbon Dioxide 28 mmol/L (22-29); Chloride 105 mmol/L (96-108); Creatinine Clr Calc Pharmacy 103.4; Estimated Glomerular Filt Rate > 60; Potassium 4.4 mmol/L (3.3-5.1); Sodium 139 mmol/L (135-145)
[2024-12-24] MEDS: Lactated Ringers 1,000 ML 100 ML IVCONT (07:37)
[2024-12-24 07:48] LABS: Glucose Random 48 mg/dL (60-115)
--- NOTE | 2024-12-24 07:49 | PM.PNGS ---
Subjective Subjective Date of Service: 12/24/24 Patient reports: no new complaints, feels better, flatus and bowel movement Interval history: Patient reports he is doing well this morning. pain is improved from yesterday, now 2/10 at rest. Patient reports passing flatus, states he passed a good sized BM last night, describes as a starting with hard stool followed by liquid stool. Reports ambuating within the room. Denies nausea, vomiting, fever, chills, dizziness, shortness of breath. patient was found to have hypoglycemia on am labs, 48, repeat poc confirms critically low, now 58. Patient denies history of DM, remains asymptomatic. Physical Exam Vital Signs: Vital Signs: Last Vital Signs Temp 98.3 F 12/24/24 03:49 Pulse 80 12/24/24 03:49 Resp 18 12/24/24 03:49 BP 115/64 12/24/24 03:49 Pulse Ox 97 12/24/24 03:49 O2 Del Method Room Air 12/24/24 03:49 BMI result Body Mass Index 31.4 Const: General: comfortable and no acute distress Orientation/consciousness: patient oriented x3 Resp: Effort & Inspection: normal respiratory effort and able to speak in complete sentences GI: Inspection: No distended Palpation (GI): Soft to palpation, not firm, Tenderness to palpation present (GI) (mild epigastric), no guarding and not rigid Percussion: Yes normal to percussion Neuro: General: patient oriented x3 Objective Data Active Medications Buprenorphine/Naloxone (Buprenorphine/Naloxone 8/2 Mg Film) 1 film SUBLINGUAL BID [facility] Last Admin: 12/23/24 20:38 Dose: 1 film Documented By: JOHN Calcium Carbonate (Calcium Carbonate 750 Mg Tab.Chew) 750 mg PO Q4H PRN PRN Reason: Heartburn Lactated Ringer's (Lr) 1,000 mls @ 100 mls/hr IVCONT .Q10H [facility] Last Admin: 12/24/24 07:37 Dose: 100 mls/hr Documented By: FILIPE Acetaminophen (Ofirmev) 1,000 mg in 100 mls @ 400 mls/hr IV Q6H [facility] Last Infusion: 12/24/24 03:49 Dose: Infused Documented By: JOHN Ketorolac Tromethamine (Ketorolac Tromethamine 30 Mg/Ml Vial) 30 mg IVPUSH Q6H PRN PRN Reason: Pain, Mild (Pain Scale 1-3) Stop: 12/28/24 09:08 Magnesium Hydroxide (Milk Of Magnesia 30 Ml Oral.Susp) 30 ml PO DAILY PRN PRN Reason: Constipation Melatonin (Melatonin 3 Mg Tablet) 6 mg PO BEDTIME PRN PRN Reason: Insomnia Morphine Sulfate (Morphine Sulfate 4 Mg/Ml Cartridge) 4 mg IVPUSH Q4H PRN; Protocol PRN Reason: Pain, Severe (Pain Scale 7-10) Last Admin: 12/24/24 01:44 Dose: 4 mg Documented By: JOHN Ondansetron HCl (Ondansetron Hcl 4 Mg/2 Ml Vial) 4 mg IVPUSH Q8H PRN PRN Reason: Nausea and Vomiting Sodium Chloride (0.9 % Sodium Chloride Flush 3 Ml Syringe) 3 ml IVFLUSH QSHIFT [facility] Last Admin: 12/24/24 07:40 Dose: Not Given Documented By: FILIPE Non-Admin Reason: IV Running Labs 12/23/24 03:12 12/24/24 05:33 Labs: Laboratory Results - last 24 hr 12/23/24 12/24/24 09:38 05:33 Hold Purple Top SEE NOTE Anion Gap 10 L Estim Creat Clear Calc 103.4 Estimated GFR > 60 Random Glucose 48 L* Calcium 8.4 D Urine Color Dark Yellow Urine Appearance Clear Urine pH 6.0 Ur Specific [place] >= 1.030 H Urine Protein Trace Urine Glucose (UA) Negative Urine Ketones 40 Urine Blood Negative Urine Nitrite Negative Ur Leukocyte Esterase Negative Procedures Date of Service Date of Service: 12/24/24 Progress Note: A&P Assessment and plan (1) Small bowel obstruction: Status: Acute Plan 44 year old made admitted for SBO. Patients symptoms improving this morning. Pain is improved, denies N/V. abdomen is soft, largely benign aside from epigastric pain. He has passed bowel movements. Patient is clinically unobstructed, no plans for surgical intervention. AM labs show patient has critically low glucose, 48, repeat POC shows 58. Patient remains asymptomatic, denies history of DM, insulin use. Patient was started on d5/LR will also continue with plan for clear liquid diet. Continue with observation, serial abdominal exams Fluids changed to D5/LR, will repeat POC later this morning to asses for appropriate rise. Will start clear liquid diet Pain regimen as needed Continue bowel regimen Time Spent With Patient Time: Total time managing care of this patient today ____ minutes. Quality Stroke Does the patient have a stroke diagnosis?: No VTE Prior VTE?: No VTE Risk Level:: Surgical - moderate VTE Device Contraindication: N/A - Device Ordered VTE Drug Contraindication: Treatment Not Indicated
[2024-12-24 07:50] VITALS: BP 127/78; PULSE 81; RESP 18; TEMP 36.3; O2SAT 98
[2024-12-24 07:51] LABS: Glucose, Whole Blood 58 mg/dL (60-115)
[2024-12-24] MEDS: Dextrose 5 % and Lactated Ring 1,000 ML 80 ML IVCONT ×2 (08:11→21:11)
[2024-12-24 08:26] LABS: Glucose, Whole Blood 80 mg/dL (60-115)
[2024-12-24] MEDS: Buprenorphine/Naloxone 8/2 mg FILM 1 FILM SUBLINGUAL ×2 (08:42→21:11)
--- NOTE | 2024-12-24 13:52 | MHC.CM.PN ---
Male 44 pt with abdominal pain admitted DX SBO. He lives with his . He is independent with all functional mobility. PCP is Dr Clark [facility]. Private transportation planned. Patient does not have insurance. A [employer] consult has been sent.
[2024-12-24 15:53] VITALS: BP 146/80; PULSE 82; RESP 18; TEMP 36.4; O2SAT 100
[2024-12-24 19:45] VITALS: BP 123/73; PULSE 70; RESP 16; TEMP 36.2; O2SAT 98
[2024-12-25 03:00] VITALS: BP 118/67; PULSE 66; RESP 16; TEMP 36; O2SAT 98
[2024-12-25 07:38] VITALS: BP 123/73; PULSE 71; RESP 18; TEMP 36.6; O2SAT 97
[2024-12-25] MEDS: Acetaminophen 1,000 MG/100 ML PIGGYBACK 400 MG IV ×2 (09:11→14:30)
[2024-12-25] MEDS: Buprenorphine/Naloxone 8/2 mg FILM 1 FILM SUBLINGUAL ×2 (09:11→21:07)
[2024-12-25] MEDS: 0.9 % Sodium Chloride Flush 3 ML SYRINGE IVFLUSH (09:11)
[2024-12-25] MEDS: Dextrose 5 % and Lactated Ring 1,000 ML 80 ML IVCONT (10:15)
--- NOTE | 2024-12-25 10:18 | P.PNGS_ITS ---
Subjective Subjective Date of Service: 12/25/24 Interval history: feels much better passing flatus had BM yesterday Physical Exam 2 Vital Signs: Vital Signs: Last Vital Signs Temp 97.8 F 12/25/24 07:38 Pulse 71 12/25/24 07:38 Resp 18 12/25/24 07:38 BP 123/73 12/25/24 07:38 Pulse Ox 97 12/25/24 07:38 O2 Del Method Room Air 12/25/24 07:38 BMI result Body Mass Index 31.4 Const: General: comfortable and no acute distress Resp: Effort & Inspection: normal respiratory effort Cardio: Rate: regular rate GI: Palpation (GI): Soft to palpation, not firm, nontender and no guarding Objective Data Active Medications Buprenorphine/Naloxone (Buprenorphine/Naloxone 8/2 Mg Film) 1 film SUBLINGUAL BID [facility] Last Admin: 12/25/24 09:11 Dose: 1 film Documented By: KODAK Calcium Carbonate (Calcium Carbonate 750 Mg Tab.Chew) 750 mg PO Q4H PRN PRN Reason: Heartburn Acetaminophen (Ofirmev) 1,000 mg in 100 mls @ 400 mls/hr IV Q6H [facility] Last Admin: 12/25/24 09:11 Dose: 400 mls/hr Documented By: KODAK Dextrose/Lactated Ringer's (D5lr) 1,000 mls @ 80 mls/hr IVCONT .[id number] [facility] Last Admin: 12/24/24 21:11 Dose: 80 mls/hr Documented By: MAYTE Ketorolac Tromethamine (Ketorolac Tromethamine 30 Mg/Ml Vial) 30 mg IVPUSH Q6H PRN PRN Reason: Pain, Mild (Pain Scale 1-3) Stop: 12/28/24 09:08 Magnesium Hydroxide (Milk Of Magnesia 30 Ml Oral.Susp) 30 ml PO DAILY PRN PRN Reason: Constipation Melatonin (Melatonin 3 Mg Tablet) 6 mg PO BEDTIME PRN PRN Reason: Insomnia Morphine Sulfate (Morphine Sulfate 4 Mg/Ml Cartridge) 4 mg IVPUSH Q4H PRN; Protocol PRN Reason: Pain, Severe (Pain Scale 7-10) Last Admin: 12/24/24 01:44 Dose: 4 mg Documented By: JOHN Ondansetron HCl (Ondansetron Hcl 4 Mg/2 Ml Vial) 4 mg IVPUSH Q8H PRN PRN Reason: Nausea and Vomiting Sodium Chloride (0.9 % Sodium Chloride Flush 3 Ml Syringe) [facility] Last Admin: 12/25/24 09:11 Dose: 3 ml Documented By: KODAK Labs 12/23/24 03:12 12/24/24 05:33 Procedures Date of Service Date of Service: 12/25/24 Progress Note: A&P Assessment and plan (1) Small bowel obstruction: Status: Acute Assessment and Plan: symptoms resolved will try on regular diet abd soft and benign clinically looks well seen ambullating Time Spent With Patient Time: Total time managing care of this patient today ____ minutes. Quality Stroke Does the patient have a stroke diagnosis?: No VTE Prior VTE?: No VTE Risk Level:: Surgical - moderate VTE Device Contraindication: N/A - Device Ordered VTE Drug Contraindication: Treatment Not Indicated
[2024-12-25 15:57] VITALS: BP 116/72; PULSE 65; RESP 18; TEMP 36.3
[2024-12-25 19:45] VITALS: BP 146/80; PULSE 72; RESP 18; TEMP 36.8; O2SAT 99
[2024-12-26 03:46] VITALS: BP 130/78; PULSE 72; RESP 18; TEMP 36.3; O2SAT 96
[2024-12-26 07:55] VITALS: BP 169/74; PULSE 73; RESP 18; TEMP 36.2; O2SAT 99
--- NOTE | 2024-12-26 09:04 | MHC.CM.PN ---
pt dcd home self care
--- NOTE | 2024-12-26 09:39 | P.PNGS_ITS ---
Subjective Subjective Date of Service: 12/27/24 Interval history: Occasional epigastric pain Otherwise he has been comfortable Tolerating regular diet well Has BMs and flatus Physical Exam 2 Vital Signs: Vital Signs: Last Vital Signs Temp 97.1 F 12/26/24 07:55 Pulse 73 12/26/24 07:55 Resp 18 12/26/24 07:55 BP 169/74 H 12/26/24 07:55 Pulse Ox 99 12/26/24 07:55 O2 Del Method Room Air 12/26/24 07:55 O2 Flow Rate 98 12/25/24 15:57 BMI result Body Mass Index 31.4 Const: General: comfortable and no acute distress Resp: Effort & Inspection: normal respiratory effort Cardio: Rate: regular rate GI: Inspection: No distended Palpation (GI): Soft to palpation, not firm, nontender and no guarding Objective Data Active Medications Acetaminophen (Acetaminophen 325 Mg Tablet) 650 mg PO Q6H PRN PRN Reason: Pain, Mild (Pain Scale 1-3) Buprenorphine/Naloxone (Buprenorphine/Naloxone 8/2 Mg Film) 1 film SUBLINGUAL BID [facility] Last Admin: 12/25/24 21:07 Dose: 1 film Documented By: CASTSHAYNA Calcium Carbonate (Calcium Carbonate 750 Mg Tab.Chew) 750 mg PO Q4H PRN PRN Reason: Heartburn Ketorolac Tromethamine (Ketorolac Tromethamine 30 Mg/Ml Vial) 30 mg IVPUSH Q6H PRN PRN Reason: Pain, Mild (Pain Scale 1-3) Stop: 12/28/24 09:08 Magnesium Hydroxide (Milk Of Magnesia 30 Ml Oral.Susp) 30 ml PO DAILY PRN PRN Reason: Constipation Melatonin (Melatonin 3 Mg Tablet) 6 mg PO BEDTIME PRN PRN Reason: Insomnia Morphine Sulfate (Morphine Sulfate 4 Mg/Ml Cartridge) 4 mg IVPUSH Q4H PRN; Protocol PRN Reason: Pain, Severe (Pain Scale 7-10) Last Admin: 12/24/24 01:44 Dose: 4 mg Documented By: JOHN Ondansetron HCl (Ondansetron Hcl 4 Mg/2 Ml Vial) 4 mg IVPUSH Q8H PRN PRN Reason: Nausea and Vomiting Sodium Chloride (0.9 % Sodium Chloride Flush 3 Ml Syringe) 3 ml IVFLUSH [facility] Last Admin: 12/26/24 00:18 Dose: Not Given Documented By: MAYTE Non-Admin Reason: Previously Administered Labs 12/23/24 03:12 12/24/24 05:33 Procedures Date of Service Date of Service: 12/27/24 Progress Note: A&P Assessment and plan (1) Small bowel obstruction: Status: Acute Assessment and Plan: Symptoms have resolved He looks well clinically Good GI functions Okay to DC home He understands possibility of recurrent symptoms down the line in view of his previous laparotomy Time Spent With Patient Time: Total time managing care of this patient today ____ minutes. Quality Stroke Does the patient have a stroke diagnosis?: No VTE Prior VTE?: No VTE Risk Level:: Surgical - moderate VTE Device Contraindication: N/A - Device Ordered VTE Drug Contraindication: Treatment Not Indicated
[2024-12-26] MEDS: Buprenorphine/Naloxone 8/2 mg FILM 1 FILM SUBLINGUAL (10:07)
[2024-12-26] MEDS: 0.9 % Sodium Chloride Flush 3 ML SYRINGE IVFLUSH (10:07)
--- NOTE | 2024-12-27 10:27 | P.DS_ITS ---
DS: Providers Provider Date of Service: 12/26/24 Date of admission: 12/23/24 09:20 Date of discharge: 12/26/24 Primary care physician: Darius Celis MD Attending physician on admission: Yadiel Disla Attending physician on discharge: Yadiel Disla DS: Diagnosis Discharge Diagnosis (1) Small bowel obstruction: Status: Acute DS: Summary Hospital Course Hospital Course: HPI AT ADMISSION: No Ramirez is a 44 year old male with a history of previous SBO, GERD, MARY BETH, horseshoe kidney presenting with a 3 day history of upper abdominal pain, and associated nausea and vomiting. Patient describes the pain as intermittent and crampy/stabbing in very intense in quality. Patient was recently seen in the emergency department on 12/22/2024 for a similar episode. Patient was consulted by Dr. Hernandez who was not impressed by CT scans, and recommended clear liquid diet for 24 hours alongside magnesium citrate. Patient was ultimately discharged with this plan. However, he began e xperiencing worsening pain and more frequent episodes so he decided to return. He states that when he is experiencing the pain, he feels nauseous and had a few episodes of vomiting. CT scan in the emergency department shows worsening small bowel obstruction with a transition point in the right lower quadrant. He denies fever/chills at home. He has been on a clear liquid diet since yesterday levi ash. He denies passing flatus, bowel movement. States last bowel movement was a few days ago but was very small. He reports a history of abdominal surgery when he was a young child but does not know what the procedure was or why. Current daily medications include PPI for GERD and 16 mg of Suboxone daily. He denies other chronic medical conditions. He denies any allergies. HOSPITAL COURSE: He was admitted to the surgical service for further treatment of the SBO likely due to adhesions given his failure to improve at home. His abdominal exam was overall benign and he was clinically appearing well and therefore supportive measures were continued. His symptoms improved and he began to pass flatus and BMs. His diet was advanced to clear liquids and then solids as tolerated. He was ambulated. On the day of discharge, he was tolerating a solid diet without any significant abdominal pain, nausea or vomiting. He had good GI function. He was hemodynamically stable with a benign abd exam. He was discharged to home on 12/26/24. He is to follow up with his PCP upon discharge. Status at Discharge Functional status at discharge: independent ambulation Overall status at discharge: patient is back to baseline Time Attestation Discharge Coordination Time (in mins): 25 Quality: Safe Use of Opioids Does Pt have an Active Cancer Diagnosis on the Problem List?: No Quality: Stroke Does the patient have a stroke diagnosis?: No Physical Exam Vital Signs: Vital Signs: Last Vital Signs Temp 97.1 F 12/26/24 07:55 Pulse 73 12/26/24 07:55 Resp 18 12/26/24 07:55 BP 169/74 H 12/26/24 07:55 Pulse Ox 99 12/26/24 07:55 O2 Del Method Room Air 12/26/24 07:55 O2 Flow Rate 98 12/25/24 15:57 BMI result Body Mass Index 31.4 Const: General: comfortable, no acute distress and alert Orientation/consciousness: patient oriented x3 GI: Inspection: No distended Palpation (GI): Soft to palpation and nontender Neuro: General: patient oriented x3 Discharge Plan Discharge Anticipated Discharge Date/Time: 12/25/24 12:42 Patient Disposition: Home, Self-Care Discharge Diagnosis: PSBO Referrals: Physician,Unknown J [Physician] - 1 Week Discharge Medications: Continued buprenorphine-naloxone [Suboxone] 8-2 mg film 1 strip sublingual BID pantoprazole 40 mg tablet,delayed release (DR/EC) 40 mg PO DAILY Discharge Orders: Discharge Order (Routine); Ordered 12/26/24 Ordered By: Yadiel Disla Diet: Advance to usual diet Activity on Discharge: As tolerated Stand Alone Forms: Patient Portal Discharge page Print Language: Spanish Activity Restrictions/Additional Instructions: Follow up with your primary care provider. Call Your Doctor If: ? ? -Your temperature exceeds 101.5? F? ? ? -You experience excessive pain or swelling ? ? -You have an unexpected reaction to medication ? ? -You experience continued vomiting/nausea Care Plan Goals: Return to baseline health and resume normal activities. Health Concerns: PSBO Plan of Treatment: supportive with IV fluids, bowel rest, pain management F/u with PCP upon discharge Assessment: Improved Patient Instructions: Bowel Obstruction (DC) Discharge Date/Time: 12/26/24 11:36
== END 2024-12-26 11:36 | disposition home or self-care (01) | DRG 389 ==
LOC: HO.ED 03:06 → HO.EDOVER 09:20 → HO.S3 11:41
PROVIDERS: Emergency Provider Emergency Medicine; PCP Internal Medicine
DX: K56.50 Intestinal adhesions [bands], unspecified as to partial versus complete obstruction (principal); F11.20 Opioid dependence, uncomplicated; Q63.1 Lobulated, fused and horseshoe kidney; Z79.899 Other long term (current) drug therapy
CPT/HCPCS: 36415; 74176; 80048; 80053; 81003; 82248; 82947; 83690; 83735; 85025; 99285; J0131; J1171; J2270; J2405; J7120

== ENCOUNTER → 2024-12-23 03:19 | Outpatient (BNV) | payer MEDICAID, SELFPAY | PROVIDERS: Emergency Provider Emergency Medicine; Visit Provider Radiology Diagnostic Radiology | DX: K56.609 Unspecified intestinal obstruction, unspecified as to partial versus complete obstruction (principal); R18.8 Other ascites | CPT/HCPCS: 74176 ==

== ENCOUNTER → 2024-12-23 09:20 | Outpatient (BNV) | payer SELFPAY | PROVIDERS: Emergency Provider Emergency Medicine; Visit Provider Surgery | DX: K56.609 Unspecified intestinal obstruction, unspecified as to partial versus complete obstruction (principal) | CPT/HCPCS: 99222; 99232; 99499 ==

== ENCOUNTER 2025-01-08 08:31 | Emergency (ER) | payer MEDICAID, SELFPAY ==
[2025-01-08 08:36] VITALS: BP 117/79; PULSE 94; RESP 16; TEMP 36.9; O2SAT 99; BMI 29.1
--- NOTE | 2025-01-08 08:39 | ECG_ITS ---
Test Reason : dizziness Blood Pressure : */* mmHG Vent. Rate : 81 BPM Atrial Rate : 81 BPM P-R Int : 164 ms QRS Dur : 84 ms QT Int : 344 ms P-R-T Axes : 73 58 60 degrees QTcB Int : 399 ms Normal sinus rhythm Normal ECG When compared with ECG of 18-Jun-2022 03:48, No significant change was found Referred By: Generic ED Physician Electronically Signed By: CARLOS HENDRICKS MD
[2025-01-08 08:55] LABS: MANUAL DIFF FLAG NO
[2025-01-08 08:56] LABS: Basophils Percent Auto 0.2 % (0-2); Eosinophils Percent Auto 0.6 % (0-4); Hematocrit 41.6 % (42.0-52.0); Hemoglobin 14.5 g/dl (14.0-18.0); Imm Gran Abs Auto 0.01 X10*3/uL (0.00-0.03); Imm Gran Pct Auto 0.2 % (0.0-0.4); Lymphocytes Absolute Auto 1.8 X10*3/uL (1.2-4.9); Lymphocytes Percent Auto 36.7 % (20-40); Mean Corpuscular HGB Conc 34.9 g/dl (31.0-36.0); Mean Corpuscular Hemoglobin 30.7 pg (27.0-33.0); Mean Corpuscular Volume 87.9 fL (80.0-98.0); Mean Platelet Volume 8.5 fL (9.4-12.4); Monocytes Absolute Auto 0.3 X10*3/uL (0.1-1.2); Monocytes Percent Auto 5.9 % (2-11); Neutrophils Absolute Auto 2.7 x10*3/uL (2.0-8.3); Neutrophils Percent Auto 56.4 % (45-73); Platelet Count 255 X10*3/uL (160-400); Red Blood Count 4.73 X10*6/uL (4.60-5.80); Red Cell Distribution Width 13.2 % (11.0-16.0); White Blood Count 4.8 X10*3/uL (4.8-10.8)
--- NOTE | 2025-01-08 08:59 | ED_ITS ---
HPI - Nausea/Vomiting/Diarrhea General Chief complaint: Dizziness Stated complaint: feels faint, nausea, stomach pain Time Seen by Provider: 01/08/25 08:45 Source: patient and old records reviewed Mode of arrival: ambulatory Limitations: no limitations History of Present Illness ED Provider: AMARILIS HORNE Narrative: 44 yo male with PMH of opiate use and ETOH use disorder who drank last night now feels weak, tired, hungover and n/v. He notes this is the 2nd time this has happened. He is taking semiglutide med for weight loss and since then he gets sick with drinking. He had to take EMS last time. He denies SI, no trauma, no GIB symptoms. MD elicited complaint: nausea, vomiting and abdominal pain Pertinent past history: alcohol abuse Onset (ago): hour(s) (several) Description of vomiting: food contents and watery Associated nausea: Yes Associated abdominal pain: Yes Location of pain: epigastric Radiation: diffuse Pain consistency: intermittent Severity: moderate Quality: aching Exacerbating factors: eating and vomiting Relieving factors: none Context: alcohol abuse Associated symptoms: loss of appetite, malaise, nausea/vomiting and weakness Related Data Home Medications ?Medication ?Instructions ?Recorded ?Confirmed buprenorphine 8 mg-naloxone 2 mg 1 strip sublingual BID 12/03/21 12/23/24 sublingual film (Suboxone) pantoprazole 40 mg tablet,delayed 40 mg PO DAILY 12/23/24 12/23/24 release Previous Rx's ?Medication ?Instructions ?Recorded ondansetron 4 mg disintegrating 4 mg PO Q8H PRN nausea and 01/08/25 tablet vomiting #20 tabs Allergies Allergy/AdvReac Type Severity Reaction Status Date / Time No Known Allergies Allergy Verified 01/08/25 08:37 Review of Systems 2 Review of Systems: Constitutional : No Weight loss, No Fever, No Chills ENT/Mouth : No sore throat, No Rhinorrhea Eyes: No Swelling, No Redness Cardiovascular : No Chest Pain, No SOB, NoEdema Respiratory : No Cough, No Sputum, No Wheezing Gastrointestinal : Positive Nausea, Positive Vomiting,no Diarrhea, positive abdominal Pain, No Hematochezia, No Melena Genitourinary : No Dysuria, No Urinary Frequency, No Hematuria, No Urgency Musculoskeletal : No joint pain, No Myalgias, No Joint Swelling Skin : No Skin Lesions, No rash Neuro : pos Weakness, No Numbness, No Dizziness, No Headache All other systems reviewed and are negative. Gastrointestinal: Gastrointestinal: Reports nausea PMFSH Past Medical History Attestation statement: The following information was validated with the patient. Source: old records reviewed Medical History Horseshoe kidney Small bowel obstruction Surgical History History of esophagogastroduodenoscopy (EGD) Hx of kidney disease Social History Social History Household Members: Family Household Members Other:: - 4 sons- (17-24) Housing: House Do you presently have visiting nurse or other home services: No Unable to assess alcohol history related to: Unknown Alcohol intake: former Patient Tobacco Use Status: Never used Tobacco Second Hand Smoke Exposure: No Advance Directives: No Advance Directives Information Provided: Yes Advance Directives Date on File: 07/18/23 service: No Current occupational status: employed Current occupation: [employer] Physical Exam 2 Vital Signs: Vital Signs: Last Vital Signs Temp 98.5 F 01/08/25 08:36 Pulse 82 01/08/25 10:31 Resp 15 01/08/25 10:31 BP 131/82 01/08/25 10:31 Pulse Ox 99 01/08/25 10:31 O2 Del Method Room Air 01/08/25 10:31 BMI result Body Mass Index 29.1 Appearance: Alert. Oriented X3. No acute distress. Eyes: Pupils equal, round and reactive to light. ENT: Pharynx normal. Neck: Normal inspection. Neck supple. CVS: Normal heart rate and rhythm. Pulses normal. Respiratory: No respiratory distress. Breath sounds normal. Abdomen: Soft and nontender. Skin: Skin warm and dry. Normal skin color. Normal skin turgor. Extremities: No lower extremity edema. No calf ttp Neuro: Oriented X 3. No motor deficit. No sensory deficit. CN2-12 intact Course Course Course Narrative: repeat BS > 65, given IV benadryl/reglan. Medications Administered Discontinued Medications Generic Name Dose Route Start Last Admin Trade Name Freq PRN Reason Stop Dose Admin Diphenhydramine HCl 25 mg 01/08/25 11:19 01/08/25 11:25 Diphenhydramine Hcl 50 Mg/Ml Vial IVPUSH 01/08/25 11:20 25 mg ONCE ONE Administration Lactated Ringer's 1,000 mls @ 999 mls/hr 01/08/25 08:48 01/08/25 10:10 Lr IV 01/08/25 09:48 Infused .Q1H1M ONE Infusion Metoclopramide HCl 10 mg 01/08/25 11:19 01/08/25 11:25 Metoclopramide Hcl 10 Mg/2 Ml Vial IVPUSH 01/08/25 11:20 10 mg ONCE ONE Administration Ondansetron HCl 4 mg 01/08/25 08:48 01/08/25 09:05 Ondansetron Hcl 4 Mg/2 Ml Vial IVPUSH 01/08/25 08:49 4 mg ONCE ONE Administration Medical Decision Making Medical Decision Making [facility] Narrative: 44 yo male with PMH of opiate use and ETOH use disorder who drank last night while on his semiglutide and again feels n/v and not well. This has happened before. He has no red flags on exam and no other concerning signs. At this time will obtain labs, hydrate and I already discussed since he continues to get ill with ETOH he needs to refrain. Differential Diagnosis Differential Diagnoses: The differential diagnosis associated with the presentation includes gastritis, ETOH abuse, dehydration Admission/Observation Consideration of admission/observation: Escalation of care including admission/observation considered feels better, tolerating PO stable for DC BS has remained stable Lab Data [facility] Lab Attestation statement: I reviewed the patient's lab results. 01/08/25 08:50 01/08/25 08:50 Labs: Lab Results 01/08/25 01/08/25 01/08/25 Range/Units 08:42 08:50 09:36 WBC 4.8 (4.8-10.8) X10*3/uL RBC 4.73 (4.60-5.80) X10*6/uL Hgb 14.5 (14.0-18.0) g/dl Hct 41.6 L (42.0-52.0) % MCV 87.9 (80.0-98.0) fL MCH 30.7 (27.0-33.0) pg MCHC 34.9 (31.0-36.0) g/dl RDW 13.2 (11.0-16.0) % Plt Count 255 (160-400) X10*3/uL MPV 8.5 L (9.4-12.4) fL Immature Gran % (Auto) 0.2 (0.0-0.4) % Neut % (Auto) 56.4 (45-73) % Lymph % (Auto) 36.7 (20-40) % Mcculloch % (Auto) 5.9 (2-11) % Eos % (Auto) 0.6 (0-4) % Baso % (Auto) 0.2 (0-2) % Lymph # (Auto) 1.8 (1.2-4.9) X10*3/uL Mcculloch # (Auto) 0.3 (0.1-1.2) X10*3/uL Eos # (Auto) 0.0 (0.0-0.4) X10*3/uL Baso # (Auto) 0.0 (0.0-0.2) X10*3/uL Abs Immat Gran (auto) 0.01 (0.00-0.03) X10*3/uL Absolute Neuts (auto) 2.7 (2.0-8.3) x10*3/uL Absolute Nucleated RBC 0.000 (0.0-0.012) X10*3/uL Nucleated RBC % (auto) 0.0 (0.0-0.2) /100WBC Sodium 141 (135-145) mmol/L Potassium 3.9 (3.3-5.1) mmol/L Chloride 107 (96-108) mmol/L Carbon Dioxide 28 (22-29) mmol/L Anion Gap 10 L (12-20) BUN 12 (9-16) mg/dL Creatinine 0.91 (0.5-1.4) mg/dL Estim Creat Clear Calc 107.5 Estimated GFR > 60 POC Glucose 75 67 (60-115) mg/dL Random Glucose 86 (60-115) mg/dL Calcium 8.6 (8.4-10.2) mg/dL Total Bilirubin 0.5 (0.0-1.0) mg/dL Direct Bilirubin 0.2 (0.0-0.5) mg/dL AST 27 (5-37) U/L ALT 20 (0-40) U/L Alkaline Phosphatase 64 (39-117) U/L Troponin I High Sens < 2.7 (<3.5-35.0) ng/L Total Protein 7.3 (6.5-8.0) g/dL Albumin 4.3 (3.5-5.0) g/dL Lipase 25 (8-78) U/L Ethyl Alcohol 97 mg/dL 01/08/25 01/08/25 01/08/25 Range/Units 10:30 11:29 12:57 WBC (4.8-10.8) X10*3/uL RBC (4.60-5.80) X10*6/uL Hgb (14.0-18.0) g/dl Hct (42.0-52.0) % MCV (80.0-98.0) fL MCH (27.0-33.0) pg MCHC (31.0-36.0) g/dl RDW (11.0-16.0) % Plt Count (160-400) X10*3/uL MPV (9.4-12.4) fL Immature Gran % (Auto) (0.0-0.4) % Neut % (Auto) (45-73) % Lymph % (Auto) (20-40) % Mcculloch % (Auto) (2-11) % Eos % (Auto) (0-4) % Baso % (Auto) (0-2) % Lymph # (Auto) (1.2-4.9) X10*3/uL Mcculloch # (Auto) (0.1-1.2) X10*3/uL Eos # (Auto) (0.0-0.4) X10*3/uL Baso # (Auto) (0.0-0.2) X10*3/uL Abs Immat Gran (auto) (0.00-0.03) X10*3/uL Absolute Neuts (auto) (2.0-8.3) x10*3/uL Absolute Nucleated RBC (0.0-0.012) X10*3/uL Nucleated RBC % (auto) (0.0-0.2) /100WBC Sodium (135-145) mmol/L Potassium (3.3-5.1) mmol/L Chloride (96-108) mmol/L Carbon Dioxide (22-29) mmol/L Anion Gap (12-20) BUN (9-16) mg/dL Creatinine (0.5-1.4) mg/dL Estim Creat Clear Calc Estimated GFR POC Glucose 77 70 96 (60-115) mg/dL Random Glucose (60-115) mg/dL Calcium (8.4-10.2) mg/dL Total Bilirubin (0.0-1.0) mg/dL Direct Bilirubin (0.0-0.5) mg/dL AST (5-37) U/L ALT (0-40) U/L Alkaline Phosphatase (39-117) U/L Troponin I High Sens (<3.5-35.0) ng/L Total Protein (6.5-8.0) g/dL Albumin (3.5-5.0) g/dL Lipase (8-78) U/L Ethyl Alcohol mg/dL Independent Interpretation I performed an independent interpretation of an: EKG Interpretation: Rate: 81 Rhythm: NSR Mcdowell: normal Normal P waves. Normal SANDEE. Normal QRS complex. ST T wave : normal no RADHA qTC: 399 prior studies: no acute ischemia The study has been interpreted contemporaneously by me. . External Record Review External record reviewed: Outpatient record Prescription Management I considered prescription management with: Other Discharge Plan Discharge Clinical Impression: Alcohol use Nausea & vomiting Qualifiers: Vomiting type: unspecified Qualified Code(s): R11.2 - Nausea with vomiting, unspecified Patient Disposition: Home, Self-Care Instructions: Acute Nausea and Vomiting (DC), Alcohol Use Disorder (ED) Additional Instructions: bland diet for 48 hours, eat small meals, check blood sugar before lunch, afternoon, dinner, before bed stay hydrated you have to stop drinking alcohol please refrain your labs and vital signs are well appearing Alcohol use disorder You were seen in the Emergency Department today for treatment of alcohol use disorder.? You may have been given medications to help with your withdrawal symptoms.? Please do not drink alcohol with them. This is very dangerous and can cause respiratory depression or other adverse reactions depending on the medication. If you would like to cut down or stop your alcohol use please consider calling our outpatient Addiction Treatment office:? [facility] (M-F [id number] [address] [place] [address] ? You have also been given a list of treatment providers in the area that can assist as well.? If you experience seizures, vomiting blood, black stools, falls, severe headache, chest pain, fevers, trouble breathing, hallucinations or any other concerns you need to call 911 or seek immediate care. Please stay hydrated. Prescriptions: New ondansetron 4 mg tablet,disintegrating 4 mg PO Q8H PRN (Reason: nausea and vomiting) Qty: 20 0RF No Action buprenorphine-naloxone [Suboxone] 8-2 mg film 1 strip sublingual BID pantoprazole 40 mg tablet,delayed release (DR/EC) 40 mg PO DAILY Print Language: Beninese
[2025-01-08] MEDS: ondansetron HCL 4 MG/2 ML VIAL IVPUSH (09:05)
[2025-01-08] MEDS: Lactated Ringers 1,000 ML 999 ML IV (09:05)
--- OUTSIDE RECORDS SUMMARY | 2025-01-08 09:14 | XMS_ITS | Encounter Summary ---
Author Organization [facility] Address [address] [place] [id number] Care Team Providers Care Junior Account Manager Name Role Phone Darius Celis MD Primary Care Provider [phone] Encounter Details Date Type Department Care Team (Late Contact Info) Description 01/08/2025 Orders Only GENERIC EXTERNAL DATA DEPARTMENT Provider, Generic External Data Social History Tobacco Use Types Packs/Day Years Used Date Smoking Tobacco: Never Smokeless Tobacco: Never Depression Answer Date Recorded Patient Health Questionnaire-9 Score 2 07/09/2022 Depression Answer Date Recorded Patient Health Questionnaire-2 Score 0 07/09/2022 Sex and Gender Information Value Date Recorded Sex Assigned at Male 05/27/2022 10:17 AM EDT Legal Sex Male 10:17 AM EDT Gender Identity Male 05/27/2022 10:17 AM EDT Sexual Orientation Straight 05/27/2022 10 :17 AM EDT documented as of this encounter Plan of Treatment Upcoming Encounters Date Type Department Care Team (Late st Contact Info) Description 01/17/2025 9:45 AM EDT Clinical Support [facility] [address] [place] [address] Arcelia Sneed RN 01/19/2025 9:15 AM EDT Office Visit [facility] [address] [place] [address] Darius Celis MD [address] [place] [address] documented as of this encounter Procedures Procedure Name Priority Date/Time Associated Diagnosis Comments CBC WITH AUTO DIFFERENTIAL Routine 01/08/2025 8:50 AM EDT documented in this encounter Results * (ABNORMAL) CBC auto differential (01/08/2025 8:50 AM EDT) White Blood Count 4.8 4.8 - 10.8 X10*3/uL [facility] Red Blood Count 4.73 4.60 - 5.80 X10*6/uL [facility] Hemoglobin 14.5 14.0 - 18.0 g/dl [facility] Hematocrit 41.6(L) 42.0 - 52.0 % [facility] Mean Corpuscular Volume 87.9 80.0 - 98.0 fL [facility] Mean Corpuscular Hemoglobin 30.7 27.0 - 33.0 pg [facility] Mean Corpuscular HGB Conc 34.9 31.0 - 36.0 g/dl [facility] Red Cell Distribution Width 13.2 11.0 - 16.0 % [facility] Platelet Count 255 160 - 400 X10*3/uL [facility] Mean Platelet Volume 8.5(L) 9.4 - 12.4 fL [facility] Neutrophils Percent Auto 56.4 45 - 73 % [facility] Imm Gran Pct Auto 0.2 0.0 - 0.4 % [facility] Lymphocytes Percent Auto 36.7 20 - 40 % [facility] Monocytes Percent Auto 5.9 2 - 11 % [facility] Eosinophils Percent Auto 0.6 0 - 4 % [facility] Basophils Percent Auto 0.2 0 - 2 % [facility] NRBC Pct Auto 0.0 0.0 - 0.2 /100WBC [facility] Neutrophils Absolute Auto 2.7 2.0 - 8.3 x10*3/uL [facility] Imm Gran Abs Auto 0.01 0.00 - 0.03 X10*3/uL [facility] Lymphocytes Absolute Auto 1.8 1.2 - 4.9 X10*3/uL [facility] Monocytes Absolute Auto 0.3 0.1 - 1.2 X10*3/uL [facility] Eosinophils Absolute Auto 0.0 0.0 - 0.4 X10*3/uL [facility] Basophils Absolute Auto 0.0 0.0 - 0.2 X10*3/uL [facility] NRBC Abs Auto 0.000 0.0 - 0.012 X10*3/uL [facility] 01/08/2025 8:50 AM EDT 01/08/2025 8:53 AM EDT us Generic External Data Provider LAB BLOOD ORDERAB LES Final Result [facility] [address] [place] [phone] [phone] documented in this encounter Visit Diagnoses Not on filedocumented in this encounter Additional Health Concerns Assessment Noted Time PHQ-9 Depression Total Score: 2 07/09/20 22 11:29 AM EST documented as of this encounter Care Teams Junior Account Manager Relationship Specialty Start Date End Date Darius Celis MD [address] [place] [phone] PCP - General Internal Medicine 08/27/13 documented as of this encounter
[2025-01-08 09:17] LABS: Alanine Aminotransferase 20 U/L (0-40); Albumin Level 4.3 g/dL (3.5-5.0); Alkaline Phosphatase 64 U/L (39-117); Anion Gap 10 (12-20); Aspartate Amino Transferase 27 U/L (5-37); Bilirubin Direct 0.2 mg/dL (0.0-0.5); Bilirubin Total 0.5 mg/dL (0.0-1.0); Blood Urea Nitrogen 12 mg/dL (9-16); Calcium 8.6 mg/dL (8.4-10.2); Carbon Dioxide 28 mmol/L (22-29); Chloride 107 mmol/L (96-108); Creatinine Clr Calc Pharmacy 107.5; Estimated Glomerular Filt Rate > 60; Ethanol 97 mg/dL; Glucose Random 86 mg/dL (60-115); Lipase 25 U/L (8-78); Potassium 3.9 mmol/L (3.3-5.1); Sodium 141 mmol/L (135-145); Total Protein 7.3 g/dL (6.5-8.0)
[2025-01-08 09:28] LABS: Troponin-I High Sensitivity < 2.7 ng/L (<3.5-35.0)
[2025-01-08 09:40] LABS: Glucose, Whole Blood 75 mg/dL (60-115)
[2025-01-08 09:40] LABS: Glucose, Whole Blood 67 mg/dL (60-115)
[2025-01-08 10:31] VITALS: BP 131/82; PULSE 82; RESP 15; O2SAT 99
[2025-01-08 10:36] LABS: Glucose, Whole Blood 77 mg/dL (60-115)
[2025-01-08] MEDS: diphenhydrAMINE HCL 50 MG/ML VIAL 25 MG IVPUSH (11:25)
[2025-01-08] MEDS: Metoclopramide HCl 10 MG/2 ML VIAL IVPUSH (11:25)
[2025-01-08 11:33] LABS: Glucose, Whole Blood 70 mg/dL (60-115)
[2025-01-08 13:01] LABS: Glucose, Whole Blood 96 mg/dL (60-115)
[2025-01-08 13:58] VITALS: BP 122/70; PULSE 78; RESP 18; TEMP 36.7; O2SAT 96
[2025-01-08 13:58] LABS: Glucose, Whole Blood 97 mg/dL (60-115)
[2025-01-08 13:59] VITALS: BP 122/70; PULSE 78; RESP 18; TEMP 36.7; O2SAT 96
== END 2025-01-08 14:00 | disposition home or self-care (01) ==
PROVIDERS: Emergency Provider Emergency Medicine; PCP Internal Medicine
DX: R11.2 Nausea with vomiting, unspecified (principal); F10.90 Alcohol use, unspecified, uncomplicated; Y90.4 Blood alcohol level of 80-99 mg/100 ml; R53.1 Weakness; F11.20 Opioid dependence, uncomplicated; Z79.899 Other long term (current) drug therapy
CPT/HCPCS: 36415; 80048; 80076; 80307; 82947; 83690; 84484; 85025; 93005; 96361; 96374; 96375; 99285; J1200; J2405; J2765; J7120

== ENCOUNTER → 2025-01-08 08:39 | Outpatient (BNV) | payer MEDICAID, SELFPAY | PROVIDERS: Emergency Provider Emergency Medicine; PCP Internal Medicine; Visit Provider Internal Medicine Cardiovascular Disease | DX: R42 Dizziness and giddiness (principal) | CPT/HCPCS: 93010 ==

== ENCOUNTER 2025-03-04 10:04 | Outpatient (REF) | payer MEDICAID, SELFPAY ==
--- OUTSIDE RECORDS SUMMARY | 2025-03-04 10:00 | XMS_ITS | Encounter Summary ---
Author Organization [employer] Address [address] [place] [address] [address] [place] [address] Care Team Providers Care Staff Climate Scientist Name Role Phone Darius Celis MD Primary Care Provider [phone] Encounter Details Date Type Department Care Team (Late st Contact Info) Description 03/04/2025 10:00 AM EDT Office Visit [facility] [address] [place] [address] [phone] Jeromy Zamora MD [address] [place] [phone] Penile rash (Primary Dx) Social History Tobacco Use Types Packs/Day Years Used Date Smoking Tobacco: Never Smokeless Tobacco: Never Alcohol Use Standard Drinks/Week Comments Never 0 (1 standard drink = 0.6 oz pur e alcohol) Depression Answer Date Recorded Patient Health Questionnaire-9 Score 2 07/09/2022 Depression Answer Date Recorded Patient Health Questionnaire-2 Score 0 07/09/2022 Sex and Gender Information Value Date Recorded Sex Assigned at Male 05/27/2022 10:17 AM EDT Legal Sex Male 10:17 AM EDT Gender Identity Male 05/27/2022 10:17 AM EDT Sexual Orientation Straight 05/27/2022 10 :17 AM EDT documented as of this encounter Last Filed Vital Signs Vital Sign Reading Time Taken Comments Blood Pressure 148/92 03/04/2025 9:50 AM EDT Pulse 95 03/04/2025 9:50 AM EDT Temperature 36.8 C (98.3 F) 03/04/2025 9:50 AM EDT Respiratory Rate 21 03/04/2025 9:50 AM EDT Oxygen Saturation 97% 03/04/2025 9:50 AM EDT Inhaled Oxygen Concentration - - Weight 86.2 kg (190 lb) 03/04/2025 9:50 AM EDT Height 170.2 cm (5' 7 ) 03/04/2025 9:50 AM EDT Body Mass Index 29.76 03/04/2025 9:50 AM EDT documented in this encounter Progress Notes * Jeromy Zamora MD - 03/04/2025 10:00 AM EDT Subjective History was provided by the patient. No Ramirez is a 44 y.o. male who presents for evaluation of 2-week duration of itchy penile rash. Denies pain. Denies dysuria or hematuria. Denies penile discharge. Rash is on the glans penis. Has a monogamous AFAB partner for many years. Admits to performing penile-anal sex without condoms. Denies F/C/N/V/D. Objective Vitals: 03/04/25 0950 BP: (!) 148/92 BP Location: Left arm Patient Position: Sitting BP Cuff Size: Adult Pulse: 95 Resp: 21 Temp: 98.3 ??F (36.8 ??C) TempSrc: Oral SpO2: 97% Weight: 190 lb (86.2 kg) Height: 5' 7 (1.702 m) Physical Exam Constitutional: General: He is not in acute distress. Appearance: Normal appearance. He is not ill-appearing, toxic-appearing or diaphoretic. HENT: Right Ear: External ear normal. Left Ear: External ear normal. Nose: Nose normal. Mouth/Throat: Mouth: Mucous membranes are moist. Pharynx: Oropharynx is clear. Eyes: Extraocular Movements: Extraocular movements intact. Conjunctiva/sclera: Conjunctivae normal. Pulmonary: Effort: Pulmonary effort is normal. Abdominal: General: Abdomen is flat. There is no distension. Palpations: Abdomen is soft. Tenderness: There is no abdominal tenderness. There is no right CVA tenderness, left CVA tenderness, guarding or rebound. Genitourinary: Testes: Normal. Comments: A well-demarcated, annular cluster (~1cm x 1cm) of erythematous papules on the dorsal aspect of glans penis; no vesicles or pustules; no ulceration; no inguinal LAD; no inguinal hernia; no testicular mass or tenderness Musculoskeletal: General: Normal range of motion. Cervical back: Neck supple. Skin: General: Skin is warm and dry. Neurological: General: No focal deficit present. Mental Status: He is alert and oriented to person, place, and time. Psychiatric: Mood and Affect: Mood normal. Behavior: Behavior normal. Diagnoses and all orders for this visit: Penile rash (Primary) - Chlamydia/N. Gonorrhoeae RNA, TMA, Urogenitial; Future - Hepatitis C Antibody with Reflex to HCV, RNA, Quantitative, Real-Time PCR; Future - HIV-1/2 Antigen and Antibodies, Fourth Generation, with Reflexes; Future - Syphilis Screen; Future Other orders - clotrimazole (Lotrimin) 1 % cream; Apply topically 2 times daily for 7 days. Patient presents to [facility] with 2-week duration of pruritic rash on penis Suspect fungal etiology based on appearance and history Advised to keep the area clean and dry, but avoid anti-bacterial soaps States he has a monogamous AFAB partner for many years States low risk for STI, but will check screening STI tests Indications for UC/ER use reviewed Advised to contact the clinic if persistent or worsening symptoms documented in this encounter Plan of Treatment Upcoming Encounters Date Type Department Care Team (Late st Contact Info) Description 03/14/2025 10:00 AM EDT Clinical Support [facility] [address] [place] [address] Arcelia Sneed RN 04/21/2025 1:15 PM EDT Office Visit [facility] [address] [place] [address] Darius Celis MD [address] [place] [address] Scheduled Orders Name Type Priority Associated Diagnoses Orde r Schedule Chlamydia/N. Gonorrhoeae RNA, TMA, Urogenitial Microbiology Routine Penile rash Expected: 03/04/2025 (Approximate), Expires: 03/04/2026 Hepatitis C Antibody with Reflex to HCV, RNA, Quantitative, Real-Time PCR Lab Routine Penile rash Expected: 03/04/2025 (Approximate), Expires: 03/04/2026 HIV-1/2 Antigen and Antibodies, Fourth Generation, with Reflexes Lab Routine Penile rash Expected: 03/04/2025 (Approximate), Expires: 03/04/2026 Syphilis Screen Lab Routine Penile rash Expected: 03/04/2025 (Approximate), Expires: 03/04/2026 documented as of this encounter Goals Goal Patient Goal Type Associated Problems Recent Progress Patient-Stated? Author Continue to improve credit score. General Yes Arcelia Sneed RN documented as of this encounter Visit Diagnoses Diagnosis Penile rash- Primary documented in this encounter Additional Health Concerns Assessment Noted Time PHQ-9 Depression Total Score: 2 07/09/20 22 11:29 AM EST documented as of this encounter Care Teams Staff Climate Scientist Relationship Specialty Start Date End Date Darius Celis MD [address] [place] [phone] PCP - General Internal Medicine 08/27/13 documented as of this encounter
--- OUTSIDE RECORDS SUMMARY | 2025-03-04 10:09 | XMS_ITS | Clinical Summary ---
Author Organization [facility] [address] [facility] Address [address] [place] [address] Phone Care Team Providers Care Senior Technical Project Manager Name Role Phone Darius Celis MD Primary Care Provider [phone] Encounters Date Type Department Care Team Description 01/26/2025 Telephone Gastroenterology - [address] [phone] Jason Caal MD from Last 3 Months Social History Tobacco Use Types Packs/Day Years Used Date Smoking Tobacco: Never Assessed Sex and Gender Information Value Date Recorded Sex Assigned at Not on file Legal Sex Male 10:47 AM EDT Gender Identity Not on file Sexual Orientation Not on file Plan of Treatment Health Maintenance Due Date Last Done Comments DTaP,Tdap,and Td Vaccines (1 - Tdap) 1999 Hepatitis B Vaccines (1 of 3 - 19+ 3-dose series) 1999 COVID-19 Vaccine ( - 2023-2 5 season) 2024 Depression Screening 07/28/2024 Cholesterol Screening (Lipid Panel) 01/26/2025 HIV Screening 01/26/2025 Hepatitis C Screening 01/26/2025 Social Influencers of Health Screening 01/26/2025 Influenza Vaccine (#1) 2025 HIB Vaccines Aged Out No longer eligi [...] on patient's age to complete this topic MMR Vaccines Aged Out No longer eligi ble based on patient's age to complete this topic Meningococcal ACWY Vaccine Aged Out N o longer eligible based on patient's age to complete this topic Meningococcal B Vaccine Aged Out No l onger eligible based on patient's age to complete this topic Pneumococcal Vaccine: Pediat rics (0 to 5 Years) and At-Risk Patients (6 to 49 Years) Aged Out No longer eligible b ased on patient's age to complete this topic RSV Immunization Patients Un janelle 20 months Aged Out No longer eligible b ased on patient's age to complete this topic Varicella Vaccines Aged Out No longer eligible based on patient's age to complete this topic Insurance MEDICAID - [place] Care Teams Senior Technical Project Manager Relationship Specialty Start Date End Date Darius Celis MD [address] [place] [phone] PCP - General Internal Medicine 01/25/25
[2025-03-04 12:14] LABS: Alanine Aminotransferase 17 U/L (0-40); Albumin Level 4.5 g/dL (3.5-5.0); Alkaline Phosphatase 70 U/L (39-117); Aspartate Amino Transferase 23 U/L (5-37); Total Protein 7.6 g/dL (6.5-8.0)
[2025-03-04 12:26] LABS: Syphilis Screen Nonreactive (Nonreactive)
[2025-03-04 12:27] LABS: HIV Num 1 0.05 S/CO (0.00-0.99); ~HepC Num1 0.19 S/CO (0.00-0.79); ~Hepatitis C Antibody Nonreactive (Nonreactive)
== END 2025-03-04 10:05 | disposition home or self-care (01) ==
LOC: HO.HHCL 10:04
PROVIDERS: PCP Internal Medicine; Visit Provider Family Medicine
DX: Z11.3 Encounter for screening for infections with a predominantly sexual mode of transmission (principal); Z11.59 Encounter for screening for other viral diseases; Z11.4 Encounter for screening for human immunodeficiency virus [HIV]; R21 Rash and other nonspecific skin eruption; F11.20 Opioid dependence, uncomplicated
CPT/HCPCS: 36415; 80076; 86780; 86803; 87389

== ENCOUNTER 2025-03-07 13:46 | Outpatient (REF) | payer MEDICAID, SELFPAY ==
[2025-03-08 11:03] LABS: CT PCR Urine NOT DETECTED (Not Detect.); NG PCR Urine NOT DETECTED (Not Detect.)
== END 2025-03-07 13:47 | disposition home or self-care (01) ==
LOC: HO.CHCLDS 13:46
PROVIDERS: Visit Provider Internal Medicine
DX: R21 Rash and other nonspecific skin eruption (principal)
CPT/HCPCS: 87491; 87591